=== PATIENT | male | born 1960 | race Caucasian/White ===

== ENCOUNTER 2020-02-27 08:34 | Inpatient (IN) ==
[2020-02-27] MEDS ORDERED: ASPIRIN CHEW 324 MG PO STA (08:52)
[2020-02-27] MEDS ORDERED: NITROGLYCERIN SL 0.4 MG/TAB TAB SL STA (08:52)
--- NOTE | 2020-02-27 08:57 | Emergency Department Note ---
History of Present Illness General Chief complaint: Cardiac Assessment Stated complaint: ANGINA SYMPTOMS SENT BY DR Bowens Seen by Provider: 02/27/20 08:44 Source: patient, RN notes reviewed and old records reviewed Mode of arrival: ambulatory Limitations: no limitations History of Present Illness Provider complaint: chest pain Onset (ago): week(s) 2 Location: chest Radiation: back Severity: moderate Pain Consistency: + intermittent and + now resolved Maximum Pain Intensity: 5 Current Pain Intensity: 5 Quality: + aching Relieved By: + immobilization Exacerbated By: + movement Associated symptoms: + shortness of breath; no diaphoresis, no fever/chills and no nausea/vomiting Treatments prior to arrival: none This is a 59-year-old male who had a negative COVID test on Tuesday who presents the emergency department complaining of chest pressure and shortness of breath that has been ongoing for the past 2 weeks. The patient was recently involved in a move and noted he has been having chest pain anytime he moved anything or walked. He reports resting makes the chest pain go away. He describes the chest pain as sharp and radiating into his back. He reports immobilization makes the pain better however movement makes it worse. The patient denies smoking however he does take medication for his blood pressure. He reports his father had angina in his 50s. The patient was sent in by his primary care physician. Home Medications Home Medications Medication Instructions Recorded Confirmed Type atenolol 25 mg PO BID 02/27/20 02/27/20 History escitalopram oxalate 20 mg PO DAILY 02/27/20 02/27/20 History losartan 100 mg PO DAILY 02/27/20 02/27/20 History Allergies Allergy/AdvReac Type Severity Reaction Status Date / Time No Known Allergies Allergy Unverified 02/27/20 09:46 Past Med/Surg History Medical History Depression with anxiety HTN (hypertension) Iron deficiency anemia Surgical History H/O cataract extraction History of colonoscopy 2012 History of elbow surgery Secondary to fracture History of esophagogastroduodenoscopy (EGD) 2012, negative for ulcer and celiac and H. pylori History of lumbar surgery L4-5 discectomy Family History Father Coronary heart disease, Onset Age: 50 Grandfather (Paternal) Coronary heart disease, Onset Age: 50 Denies family history of Colon cancer Blood dyscrasia Social History (Updated 02/27/20 @ 12:36 by Skylar Friedman PA-C) Smoking Status: Never smoker Hx Alcohol Use: No Hx Substance Use: No Preferred Language: Hungarian Communication Ability: Effective School Counsellor Required: No Beliefs That Will Affect Care: None Current Living Situation: Spouse current occupational status: employed Other Information That Helps Us Care for You: No Feels Safe at Home: Yes Safety Concerns: Feels Safe At This Time Review of Systems A total of 10 systems reviewed and were otherwise negative Physical Exam Vital Signs Vital Signs - 24 hr 02/27/20 10:01 Pulse Rate [Left Finger] 74 Respiratory Rate 20 Respiratory Effort / Characteristics Non-Labored Respiratory Depth Normal Blood Pressure [Left Arm] 144/70 H Blood Pressure Mean [Left Arm] 94 Pulse Oximetry 99 Oxygen Delivery Method Room Air VITAL SIGNS - Vital signs and nursing notes were reviewed. GENERAL - 59-year-old male appearing stated age who is in no acute distress. Communicates well with provider and answers questions appropriately. SKIN - Without rashes. HEAD - NC/AT. EYES - PERRL with EOMI bilaterally. Sclera anicteric. Palpebral conjunctiva pink and moist with no injection noted. EARS - No deformities of external structures noted on gross examination bilaterally. No pain elicited with palpation of the tragus bilaterally. External auditory canals without discharge or otorrhea. Tympanic membranes pearly diggs without retraction or bulging. No fluid or purulent material visualized behind the TM. Handle of malleus, umbo, cone of light, pars tensa/flaccid all easily visualized. NOSE - Midline and without cyanosis. No epistaxis or purulent drainage noted. S eptum midline without deviation or septal hematoma noted. MOUTH/OROPHARYNX - Without perioral cyanosis. Buccal mucosa pink and moist and without leukoplakia. Tongue midline with equal elevation of palate bilaterally. No tonsillar hypertrophy, erythema, or exudates noted. dentition noted. NECK - Neck with FROM. Supple to palpation. lymphadenopathy noted. No nuchal rigidity. LUNGS - Chest wall symmetric without accessory muscle use, intercostals retractions, or central cyanosis. Normal vesicular breath sounds CTA B/L. No wheezes, rales, or rhonchi appreciated. CARDIAC - RRR with S1/S2. No murmur, rubs, or gallops appreciated. ABDOMEN - Abdominal contour without pulsations or visible masses. BS normoactive all four quadrants. No tenderness, palpable masses, hepatosplenomegaly, or ascites noted. Rectal: Brown stool, heme negative EXTREMITIES - No clubbing or peripheral cyanosis. No pretibial edema present. +3/5 radial, posterior tibial, and dorsalis pedis pulses palpated throughout. +5/5 strength noted in UE/LE bilaterally. NEUROLOGIC - Cranial nerves II through XII grossly intact. Sensory intact to light touch throughout. Patellar reflexes +2/4. PSYCH - A&Ox3 and cooperates fully with examiner. Pt is very pleasant and interacts well with examiner. Course Administered Medications Atenolol (Tenormin) 25 mg PO BID [facility] Stop: 03/28/20 20:59 Last Admin: 02/28/20 07:47 Dose: Not Given Documented by: [id number] Admin: 02/27/20 20:08 Dose: 25 mg Documented by: [id number] Escitalopram Oxalate (Lexapro Tab) 20 mg PO DAILY ANDREW Stop: 03/29/20 08:59 Last Admin: 02/28/20 07:47 Dose: Not Given Documented by: [id number] Ioversol (Optiray 320 100ml) 94 ml IV ONCE PRN PRN Reason: Interaction Checking Stop: 03/02/20 12:47 Last Admin: 02/27/20 12:48 Dose: 94 ml Documented by: [id number] Losartan Potassium (Cozaar) 100 mg PO DAILY ANDREW Stop: 03/29/20 08:59 Last Admin: 02/28/20 07:47 Dose: Not Given Documented by: [id number] Discontinued Medications Aspirin (Aspirin) 324 mg PO NOW STA Stop: 02/27/20 08:53 Last Admin: 02/27/20 09:13 Dose: 324 mg Documented by: [id number] Bisacodyl (Dulcolax) 20 mg PO NOW ONE Stop: 02/27/20 17:01 Last Admin: 02/27/20 17:36 Dose: 20 mg Documented by: [id number] Nitroglycerin (Nitrostat) 0.4 mg SL NOW STA Stop: 02/27/20 08:53 Last Admin: 02/27/20 09:13 Dose: 0.4 mg Documented by: [id number] Polyethylene Glycol (Miralax Powder Packet) 119 gm PO ONE ONE Stop: 02/27/20 17:01 Last Admin: 02/27/20 17:42 Dose: 119 gm Documented by: [id number] Polyethylene Glycol (Miralax Powder Packet) 119 gm PO ONE ONE Stop: 02/27/20 21:01 Last Admin: 02/27/20 21:02 Dose: 119 gm Documented by: [id number] Critical Care Time I have personally spent greater than 30 minutes of critical care time in the dir ect management of this patient. This includes bedside care, interpretation of diagnostic studies, and testing, discussion with consultants, patient, and family members, and other required patient management activities. This 30 minutes is in excess of all separately billable procedures. Medical Decision Making Differential Diagnosis Cardiac ischemia, aortic dissection, pulmonary embolism, pneumothorax, pneumonia, pericarditis, myocarditis, esophageal rupture, GERD, cholecystitis, pancreatitis, musculoskeletal, as well as other pathologies. Medical Records Attestation: I reviewed the patient's medical records. Home Medications Current Medication List: was personally reviewed by me Laboratory Data Attestation: I reviewed the patient's lab results. Result diagrams: 02/28/20 07:21 02/28/20 07:21 Lab Results 02/27/20 02/27/20 02/27/20 Range/Units 09:02 09:02 09:02 WBC 5.86 (4.8-10.8) K/uL RBC 3.15 L (4.7-6.1) M/uL Hgb 6.7 L* (14.0-18.0) g/dL Hct 22.5 L (42-52) % MCV 71.4 L (80-100) fL MCH 21.3 L (25-34) pg MCHC 29.8 L (32-36) g/dL RDW Std Deviation 39.7 (36.4-46.3) fL RDW Coeff of April 15.2 H (11.5-14.5) % Plt Count 323 (130-400) K/uL MPV 9.4 (7.4-10.4) fL Immature Gran % (Auto) 0.3 % Neut % (Auto) 64.1 % Lymph % (Auto) 18.8 % [place] % (Auto) 9.7 % Eos % (Auto) 6.1 % Baso % (Auto) 1.0 % Reticulocyte % (Auto) (0.5-2.0) % Neut # (Auto) 3.75 (1.4-6.5) K/uL Lymph # (Auto) 1.10 L (1.2-3.4) K/uL [place] # (Auto) 0.57 (0.11-0.59) K/uL Eos # (Auto) 0.36 (0-0.5) K/uL Baso # (Auto) 0.06 (0-0.2) K/uL Reticulocyte # (0.02-0.10) 10^6/uL Immature Gran # (Auto) 0.02 (0.00-0.02) K/uL Giant Platelets 1+ Hypochromasia Present Microcytosis Present Peripher Smr Path Cons PT 10.8 (9.0-12.0) Seconds INR 1.0 (0.9-1.1) APTT 24.4 (21.0-31.0) Seconds PTT Ratio 0.9 D-Dimer 340 (0-500) ug/L FEU Sodium 137 (136-145) mmol/L Potassium 4.3 (3.5-5.1) mmol/L Chloride 110 H (98-107) mmol/L Carbon Dioxide 22 (21-32) mmol/L Anion Gap 5.0 (3-11) BUN 18 (7-18) mg/dl Creatinine 0.86 (0.6-1.4) mg/dl Est Cr Clr Drug Dosing 120.2 ml/min Est GFR ( Amer) 111.6 Est GFR (Non-Af Amer) 96.3 BUN/Creatinine Ratio 20.6 H (10-20) Glucose 107 H (70-99) mg/dl Calcium 8.9 (8.5-10.1) mg/dl Iron (35-175) mcg/dl Transferrin (200-360) mg/dl Transferrin % Sat (20-50) % Ferritin (8-388) ng/ml Total Bilirubin 0.3 (0.2-1) mg/dl AST 14 L (15-37) U/L ALT 21 (12-78) U/L Alkaline Phosphatase 69 (45-117) U/L Total Creatine Kinase 138 (39-308) U/L CK-MB (CK-2) 3.3 (0.5-3.6) ng/ml CK/CKMB % Calc 2.4 (0-3.0) Troponin I < 0.015 (0-0.045) ng/ml Total Protein 6.9 (6.4-8.2) gm/dl Albumin 3.3 L (3.4-5.0) gm/dl Globulin 3.6 (2.5-4.0) gm/dl Albumin/Globulin Ratio 0.9 (0.9-2) Lipase 160 (73-393) U/L Lyme Disease IgG Ab (Negative) Lyme Disease IgM Ab (Negative) Blood Type Blood Type Recheck Antibody Screen Crossmatch 02/27/20 02/27/20 02/27/20 Range/Units 09:02 09:50 09:50 WBC (4.8-10.8) K/uL RBC (4.7-6.1) M/uL Hgb (14.0-18.0) g/dL Hct (42-52) % MCV (80-100) fL MCH (25-34) pg MCHC (32-36) g/dL RDW Std Deviation (36.4-46.3) fL RDW Coeff of April (11.5-14.5) % Plt Count (130-400) K/uL MPV (7.4-10.4) fL Immature Gran % (Auto) % Neut % (Auto) % Lymph % (Auto) % [place] % (Auto) % Eos % (Auto) % Baso % (Auto) % Reticulocyte % (Auto) 1.8 (0.5-2.0) % Neut # (Auto) (1.4-6.5) K/uL Lymph # (Auto) (1.2-3.4) K/uL [place] # (Auto) (0.11-0.59) K/uL Eos # (Auto) (0-0.5) K/uL Baso # (Auto) (0-0.2) K/uL Reticulocyte # 0.05 (0.02-0.10) 10^6/uL Immature Gran # (Auto) (0.00-0.02) K/uL Giant Platelets Hypochromasia Microcytosis Peripher Smr Path Cons PT (9.0-12.0) Seconds INR (0.9-1.1) APTT (21.0-31.0) Seconds PTT Ratio D-Dimer (0-500) ug/L FEU Sodium (136-145) mmol/L Potassium (3.5-5.1) mmol/L Chloride (98-107) mmol/L Carbon Dioxide (21-32) mmol/L Anion Gap (3-11) BUN (7-18) mg/dl Creatinine (0.6-1.4) mg/dl Est Cr Clr Drug Dosing ml/min Est GFR ( Amer) Est GFR (Non-Af Amer) BUN/Creatinine Ratio (10-20) Glucose (70-99) mg/dl Calcium (8.5-10.1) mg/dl Iron (35-175) mcg/dl Transferrin (200-360) mg/dl Transferrin % Sat (20-50) % Ferritin (8-388) ng/ml Total Bilirubin (0.2-1) mg/dl AST (15-37) U/L ALT (12-78) U/L Alkaline Phosphatase (45-117) U/L Total Creatine Kinase (39-308) U/L CK-MB (CK-2) (0.5-3.6) ng/ml CK/CKMB % Calc (0-3.0) Troponin I (0-0.045) ng/ml Total Protein (6.4-8.2) gm/dl Albumin (3.4-5.0) gm/dl Globulin (2.5-4.0) gm/dl Albumin/Globulin Ratio (0.9-2) Lipase (73-393) U/L Lyme Disease IgG Ab Negative (Negative) Lyme Disease IgM Ab Negative (Negative) Blood Type O Positive Blood Type Recheck Antibody Screen NEGATIVE Crossmatch See Detail 02/27/20 02/27/20 Range/Units 09:50 09:56 WBC (4.8-10.8) K/uL RBC (4.7-6.1) M/uL Hgb (14.0-18.0) g/dL Hct (42-52) % MCV (80-100) fL MCH (25-34) pg MCHC (32-36) g/dL RDW Std Deviation (36.4-46.3) fL RDW Coeff of April (11.5-14.5) % Plt Count (130-400) K/uL MPV (7.4-10.4) fL Immature Gran % (Auto) % Neut % (Auto) % Lymph % (Auto) % [place] % (Auto) % Eos % (Auto) % Baso % (Auto) % Reticulocyte % (Auto) (0.5-2.0) % Neut # (Auto) (1.4-6.5) K/uL Lymph # (Auto) (1.2-3.4) K/uL [place] # (Auto) (0.11-0.59) K/uL Eos # (Auto) (0-0.5) K/uL Baso # (Auto) (0-0.2) K/uL Reticulocyte # (0.02-0.10) 10^6/uL Immature Gran # (Auto) (0.00-0.02) K/uL Giant Platelets Hypochromasia Microcytosis Peripher Smr Path Cons PT (9.0-12.0) Seconds INR (0.9-1.1) APTT (21.0-31.0) Seconds PTT Ratio D-Dimer (0-500) ug/L FEU Sodium (136-145) mmol/L Potassium (3.5-5.1) mmol/L Chloride (98-107) mmol/L Carbon Dioxide (21-32) mmol/L Anion Gap (3-11) BUN (7-18) mg/dl Creatinine (0.6-1.4) mg/dl Est Cr Clr Drug Dosing ml/min Est GFR ( Amer) Est GFR (Non-Af Amer) BUN/Creatinine Ratio (10-20) Glucose (70-99) mg/dl Calcium (8.5-10.1) mg/dl Iron 10 L (35-175) mcg/dl Transferrin 340 (200-360) mg/dl Transferrin % Sat 2 L (20-50) % Ferritin 1.2 L (8-388) ng/ml Total Bilirubin (0.2-1) mg/dl AST (15-37) U/L ALT (12-78) U/L Alkaline Phosphatase (45-117) U/L Total Creatine Kinase (39-308) U/L CK-MB (CK-2) (0.5-3.6) ng/ml CK/CKMB % Calc (0-3.0) Troponin I (0-0.045) ng/ml Total Protein (6.4-8.2) gm/dl Albumin (3.4-5.0) gm/dl Globulin (2.5-4.0) gm/dl Albumin/Globulin Ratio (0.9-2) Lipase (73-393) U/L Lyme Disease IgG Ab (Negative) Lyme Disease IgM Ab (Negative) Blood Type Blood Type Recheck O Positive Antibody Screen Crossmatch Imaging Data Radiologist's Impression: [place], [place] [phone] XRay Report Patient: YULIA LIMAdmit Date: 02/27/20 MR#: [id number]: [id number] Acct ID:[id number]: [facility] Zip[facility] [place] [address] Age: 59Location: ED Sex: M Room/Bed: Att Phy:Diagnosis: ANGINA SYMPTOMS SENT BY DR Kiran Phy: Jose Alfredo Meyers MDService Date: 02/27/20 Fam Phy:Interpreting Phy: Frank Castaneda MD Admit Phy: Ordering Phy: Sarwat Saha MD cc: ~ XR chest 1V portable HISTORY: Atypical Chest Pain COMPARISON: None. FINDINGS: Cardiac silhouette is mildly enlarged. No pleural effusions. No pneumothorax. The lungs are clear. The trachea is midline and patent. No acute rib fractures. IMPRESSION: Mild cardiomegaly. ACT 112: Negative or not required by law. Electronically signed by: Frank Castaneda M.D. 02/27/2020 9:10 AM Dictated: 02/27/20907 Transcribed: 02/27/20 09 ECG Data Attestation: I personally reviewed and interpreted this ECG as follows: Indication: + chest pain Rate (beats per minute): 75 Rhythm: + normal sinus ECG Intervals/blocks: + Normal QT-c (415) ECG [place]: + Normal ECG ST segments: no ST depression and no ST elevation Comparison ECG Date: from (01/17/2014) Change: no significant change MDM Narrative This is a 59-year-old male who presents emergency department complaining of chest pain or shortness of breath anytime he ambulates. Patient reports a history of dark tarry stool this week however he is heme-negative on my physical examination. Hemoglobin was found to be 6.7 his troponin is negative. His d- dimer is also not elevated and he has a negative normal EKG. He was typed and crossed for 2 units of packed red blood cells. The patient did sign can the blood consent and is placed on the chart. I did discuss the case with the hospital service who did agree to admit the patient. Patient was seen and evaluated as above in room A3. Review was performed of nursing notes and vital signs. I did review pertinent previous visits and patient history. After obtaining a thorough history and physical examination the above work up was performed. An order was placed for continuous cardiac monitoring. The monitor shows a rate of 74 with Normal Sinus rhythm. The patient was evaluated during the global COVID-19 pandemic, and that diagnosis was suspected/considered upon their initial presentation. Their evaluation, treatment and testing was consistent with current guidelines for patients who present with complaints or symptoms that may be related to COVID- 19. Impression & Plan Chest pain, Symptomatic anemia Discharge Plan Visit Data *Final* Discharge Date/Time: 02/27/20 11:03 Chief Complaint: Cardiac Assessment Stated Complaint: ANGINA SYMPTOMS SENT BY ED Provider: Sarwat Saha Discharge Problem: Chest pain, Symptomatic anemia Patient Disposition: Admitted As Inpatient Discharge Instructions Interventions: ED Discharge Assessment Last Done: 02/27/20 11:03 Discharge Problem: Chest pain Qualifiers: Chest pain type: unspecified Qualified Code(s): R07.9 - Chest pain, unspecified
--- NOTE | 2020-02-27 09:11 | XRay Report ---
XR chest 1V portable HISTORY: Atypical Chest Pain COMPARISON: None. FINDINGS: Cardiac silhouette is mildly enlarged. No pleural effusions. No pneumothorax. The lungs are clear. The trachea is midline and patent. No acute rib fractures. IMPRESSION: Mild cardiomegaly. ACT 112: Negative or not required by law. Electronically signed by: Frank Castaneda M.D. 02/27/2020 9:10 AM
[2020-02-27 09:25] LABS: Hematocrit (blood only) 22.5 % (42-52); Hemoglobin 6.7 g/dL (14.0-18.0); Mean Corpuscular Hemoglobin 21.3 pg (25-34); Mean Corpuscular Hgb Conc 29.8 g/dL (32-36); Mean Corpuscular Volume 71.4 fL (80-100); Mean Platelet Volume 9.4 fL (7.4-10.4); Platelet Count 323 K/uL (130-400); RDW Coefficient of Variation 15.2 % (11.5-14.5); RDW Standard Deviation 39.7 fL (36.4-46.3); Red Blood Count 3.15 M/uL (4.7-6.1); White Blood Count 5.86 K/uL (4.8-10.8)
[2020-02-27] MEDS ORDERED: SODIUM CHLORIDE 0.9% 250 ML IV PRN ×3 (09:26→12:52)
[2020-02-27 09:33] LABS: Alanine Aminotransferase 21 U/L (12-78); Albumin Level 3.3 gm/dl (3.4-5.0); Aspartate Aminotransferase 14 U/L (15-37); BUN Creatinine Ratio 20.6 (10-20); Blood Urea Nitrogen 18 mg/dl (7-18); Calcium 8.9 mg/dl (8.5-10.1); Carbon Dioxide 22 mmol/L (21-32); Chloride 110 mmol/L (98-107); Creatinine Clr Calc Pharmacy 120.2 ml/min; Est GFR (African American) 111.6; Est GFR (Non-African American) 96.3; Glucose 107 mg/dl (70-99); Lipase 160 U/L (73-393); Potassium 4.3 mmol/L (3.5-5.1); Sodium 137 mmol/L (136-145)
[2020-02-27 09:36] LABS: Basophils # (auto) 0.06 K/uL (0-0.2); Eosinophils # (auto) 0.36 K/uL (0-0.5); Eosinophils % (auto) 6.1 %; Giant Platelets 1+; Hypochromasia Present; Immature Granulocytes # (auto) 0.02 K/uL (0.00-0.02); Immature Granulocytes % (auto) 0.3 %; Lymphocytes % (auto) 18.8 %; Microcytosis Present; Monocytes # (auto) 0.57 K/uL (0.11-0.59); Monocytes % (auto) 9.7 %; Neutrophils # (auto) 3.75 K/uL (1.4-6.5); Neutrophils % (auto) 64.1 %
[2020-02-27 09:38] LABS: Albumin Globulin Ratio 0.9 (0.9-2); Alkaline Phosphatase 69 U/L (45-117); Bilirubin,Total 0.3 mg/dl (0.2-1); Creatine Kinase 138 U/L (39-308); Creatine Kinase MB 3.3 ng/ml (0.5-3.6); Globulin 3.6 gm/dl (2.5-4.0); Total Protein 6.9 gm/dl (6.4-8.2); Troponin I < 0.015 ng/ml (0-0.045)
[2020-02-27 09:41] LABS: D Dimer 340 ug/L FEU (0-500); Partial Thromboplastin Ratio 0.9; Partial Thromboplastin Time 24.4 Seconds (21.0-31.0); Prothrombin Time 10.8 Seconds (9.0-12.0)
[2020-02-27] MEDS ORDERED: ACETAMINOPHEN 325 MG TAB PO PRN (10:02)
[2020-02-27] MEDS ORDERED: ONDANSETRON INJ 2 MG/ML 2 ML VIAL IV PRN (10:02)
[2020-02-27 10:06] LABS: Reticulocyte % 1.8 % (0.5-2.0); Reticulocytes # 0.05 10^6/uL (0.02-0.10)
[2020-02-27 10:14] LABS: Lyme Ab IgG w/WB Rflx Negative (Negative); Lyme Ab IgM w/WB Rflx Negative (Negative)
[2020-02-27 10:31] LABS: Ferritin 1.2 ng/ml (8-388)
--- NOTE | 2020-02-27 11:22 | Gastrointestinal Consultation ---
Date of Consultation February 27, 2020 Assessment & Plan (1) Iron deficiency anemia: Pt is a 59 y/o male admitted with symptomatic iron deficiency anemia w/o elo symptoms of GI/ bleeding. Previous evaluation for iron deficiency anemia in 2012 via EGD/colonoscopy evals were unrevealing. He never went through with VCE eval or Heme/Onc referral - Agree w blood transfusions, monitor blood ct closely - Replet iron - CL diet today, NPO after midnight. Will plan for EGD/Colonoscopy eval tomorrow 02/[address] Suarez - Recommend Heme/Onc eval Supervising Physician Co-Signing Physician Notes I performed a history and physical examination of the patient today, including specifically on physical exam - soft abdomen. I have discussed the patient's management with the advanced practitioner. Please refer to the nurse practitioner's note for the documented findings and plan of care. EGD/colonoscopy tomorrow History of Present Illness Reason for Consultation: Symptomatic anemia Requesting Physician: Dr. Pepper Randall Attending Physician: Dr. Damion Suarez History of Present Illness Pt is a 59 y/o male w hx of HTN, anxiety who presented with fatigue, HAUSER x 2 weeks. He mentioned having chest pressure and also upper back pressure sensation when he does something strenous. + light headedness but denies any syncope or falls. On evaluation he was noted to be severely anemic. H/H 01/27. Hgb in ouptpt labs in 2019 was around 13. Coag studies, BUN/Cr normal. Iron levels low. He has hx of iron deficiency anemia and underwent EGD/Colonsocopy evals in 2012 for this. No signs of GI blood loss or malignancy noted at that time. Celiac testing normal also. He was recommended to undergo video capsule endoscopy and referred to Heme/Onc however never followed through w appt. He mentioned having n/v x 1 within last 2 weeks but denies any coffee ground emesis or hematemesis. Stools solid, dark at times but denies any black tarry appearance or BRBPR. Denies open bleeding wounds, hematuria. He is on iron supplements once daily now. He denies NSAIDs, ETOH, tobacco or marijuana products. Family hx pertinent for heart disease and diabetes but denies hematological disorders or colorectal ca. Allergies Allergy/AdvReac Type Severity Reaction Status Date / Time No Known Allergies Allergy Unverified 02/27/20 09:46 Home Medications Home Medications Medication Instructions Recorded Confirmed Type atenolol 25 mg PO BID 02/27/20 02/27/20 History escitalopram oxalate 20 mg PO DAILY 02/27/20 02/27/20 History losartan 100 mg PO DAILY 02/27/20 02/27/20 History Patient History Medical History (Updated 02/27/20 @ 12:38 by Skylar Friedman PA-C) Depression with anxiety HTN (hypertension) Iron deficiency anemia Surgical History (Updated 02/27/20 @ 12:34 by Skylar Friedman PA-C) H/O cataract extraction History of colonoscopy 2012 History of elbow surgery Secondary to fracture History of esophagogastroduodenoscopy (EGD) 2012, negative for ulcer and celiac and H. pylori History of lumbar surgery L4-5 discectomy Family History Father Coronary heart disease, Onset Age: 50 Grandfather (Paternal) Coronary heart disease, Onset Age: 50 Denies family history of Colon cancer Blood dyscrasia Social History (Updated 02/27/20 @ 12:36 by Skylar Friedman PA-C) Smoking Status: Never smoker Hx Alcohol Use: No Hx Substance Use: No Preferred Language: Liberian Communication Ability: Effective Tin Dipper Required: No Beliefs That Will Affect Care: None Current Living Situation: Spouse current occupational status: employed Other Information That Helps Us Care for You: No Feels Safe at Home: Yes Safety Concerns: Feels Safe At This Time Review of Systems Review of Systems: All systems reviewed & are unremarkable except as noted in HPI & below Physical Exam Constitutional: WD/WN, vitals as above well groomed, cooperative and comfortable Eyes: PERRL, conjunctivae normal, anicteric sclerae ENMT: external ear and nose normal, oropharynx normal Respiratory: normal respiratory effort, lungs clear to auscultation Cardiovascular: RRR, no murmur, no edema Gastrointestinal (Abdomen): normal bowel sounds, soft, nontender, no hepatosplenomegaly Skin: no rashes, warm and dry no jaundice Psychiatric: A+Ox3, euthymic affect Lymphatic: no lymphedema Results & Data ([facility]) Vital Signs (Past 12 Hours) Vital Signs Temp Pulse Pulse Resp BP BP Pulse Ox 02/27/20 10:57 76 22 173/55 H 100 02/27/20 10:01 74 20 144/70 H 99 02/27/20 09:23 72 20 127/76 02/27/20 09:16 80 22 161/76 H 100 02/27/20 09:12 78 16 153/75 H 100 02/27/20 09:10 78 18 100 02/27/20 08:39 36.8 C 75 20 169/74 H 97
--- NOTE | 2020-02-27 12:39 | History & Physical Report ---
Date of Service February 27, 2020 Assessment & Plan (1) Iron deficiency anemia: (2) Symptomatic anemia: This is a 59-year-old male who has significant past medical history of HTN, iron deficiency anemia, depression with anxiety who presents to ED secondary to chest pain and shortness of breath x2 weeks. Upon evaluation in the ED he was found to be significantly anemic with an H&H of 6.7 and 22.5, hypochromic and microcytic. Platelet count was WNL. He did have negative COVID test from depict on 02/24. Further lab abnormalities included significant iron deficiency with ferritin 1.2, T saturation 2%, iron 10 and transferrin 340. His initial troponin was negative. Lyme screen was negative, Anaplasma pending. Chest x-ray with mild cardiomegaly but no acute cardiopulmonary disease. EKG revealed normal sinus rhythm at [address] or T wave changes. Pt with severe iron deficiency anemia, has been iron deficient since 2012 - at that time had EGD/colon w/u and was negative including hpylori and celiac disease. Did not f/u as outpt with hematology or capsule endoscopy admit to tele transfuse 2 units PRBC peripheral smear pending GI consulted appreciate recs Clear liquid diet, NPO after midnight Pt will need IV venofer when bld ct repleted repeat h/h this afternoon (3) HTN (hypertension): continue losartan and atenolol with parameters pt actually hypertensive despite profound anemia (4) Depression with anxiety: continue lexapro mood stable (5) DVT prophylaxis: none in setting of acute anemia Disposition: admit to Tele Follow up: PCP Dr. Meyers upon discharge along with Heme/onc Pt was seen and examined in collaboration with Dr. Randall, please see addendum Admission and Anticipated Discharge Date Admission Date: February 27, 2020 History of Present Illness Chief Complaint: Chest pain and shortness of breath x2 weeks. Primary Care Provider: Jose Alfredo Meyers MD This is a 59-year-old male who has significant past medical history of HTN, iron deficiency anemia, depression with anxiety who presents to ED secondary to chest pain and shortness of breath x2 weeks. is at bedside. He admits over the last 2 weeks developing chest pain and pressure like he is being, "hit by a sandbag," even with minimal exertion including lifting something. He also admits to getting significantly short of breath with simple daily activities. He is concerned due to a family history of CAD in his father and grandfather in their 50s. He has never experienced this in the past. He further admits to being overall fatigued, increased arthralgias, general malaise and occasional nausea with emesis. He denies any recent fever but admits to chills and denies sweats. He does admit to feeling lightheaded like he could pass out but denies any elo syncope or dizzy. He denies any headache, change in vision, change in hearing, palpitations, cough, hemoptysis, hematemesis, abdominal pain, diarrhea, melena, medic easier, hematuria, dysuria increased urgency or frequency with urination. He does have a known past medical history of iron deficiency anemia in which she was prescribed oral iron. He admits to not being compliant with it due to it causing nausea and poor tolerance. Of significance he did have a work-up in 2012 for iron deficiency anemia and underwent EGD and colonoscopy whi ch was negative for celiac's disease or source of bleeding. It was recommended at that time to do a video endoscopy capsule as well as hematology evaluation. He denies any prior history of blood dyscrasias or family history of this. He admits to being a meat, potatoes and vegetables elvin and feels he does eat adequate iron intake. He did take his morning medications. He denies significant NSAID use and denies alcohol use. Denies family history of blood dyscrasia or colorectal cancer. Upon evaluation in the ED he was found to be significantly anemic with an H&H of 6.7 and 22.5, hypochromic and microcytic. Platelet count was WNL. He did have negative COVID test from depict on 02/24. Further lab abnormalities included significant iron deficiency with ferritin 1.2, T saturation 2%, iron 10 and transferrin 340. His initial troponin was negative. Lyme screen was negative, Anaplasma pending. Chest x-ray with mild cardiomegaly but no acute cardiopulmonary disease. EKG revealed normal sinus rhythm at [address] or T wave changes. Allergies Allergy/AdvReac Type Severity Reaction Status Date / Time No Known Allergies Allergy Unverified 02/27/20 09:46 Home Medications Home Medications Medication Instructions Recorded Confirmed Type atenolol 25 mg PO BID 02/27/20 02/27/20 History escitalopram oxalate 20 mg PO DAILY 02/27/20 02/27/20 History losartan 100 mg PO DAILY 02/27/20 02/27/20 History Past Med/Surg History Medical History (Updated 02/27/20 @ 12:38 by Skylar Friedman PA-C) Depression with anxiety HTN (hypertension) Iron deficiency anemia Surgical History (Updated 02/27/20 @ 12:34 by Skylar Friedman PA-C) H/O cataract extraction History of colonoscopy 2012 History of elbow surgery Secondary to fracture History of esophagogastroduodenoscopy (EGD) 2012, negative for ulcer and celiac and H. pylori History of lumbar surgery L4-5 discectomy Family History Father Coronary heart disease, Onset Age: 50 Grandfather (Paternal) Coronary heart disease, Onset Age: 50 Denies family history of Colon cancer Blood dyscrasia Social History (Updated 02/27/20 @ 12:36 by Skylar Friedman PA-C) Smoking Status: Never smoker Hx Alcohol Use: No Hx Substance Use: No Preferred Language: Serbian Communication Ability: Effective Fire Coordinator Required: No Beliefs That Will Affect Care: None Current Living Situation: Spouse current occupational status: employed Other Information That Helps Us Care for You: No Feels Safe at Home: Yes Safety Concerns: Feels Safe At This Time Review of Systems Review of Systems: All systems reviewed & are unremarkable except as noted in HPI & below Physical Exam Physical Exam: Constitutional: WD/WN, pale lower, vitals as above, NAD, sitting up in bed, pleasant, conversing easily Head: Normocephalic, Atraumatic Eyes: PERRL, conjunctivae normal, anicteric sclerae ENMT: external ear and nose normal, oropharynx normal Neck: trachea midline, no thyromegaly normal visual inspection Respiratory: normal respiratory effort, lungs clear to auscultation, no wheeze, rales, rhonchi. Normal insp/exp effort, no accessory muscle use Cardiovascular: RRR, no murmur, no edema Vessels: no JVD or carotid bruit Chest: normal inspection of chest Abdomen: normal bowel sounds, soft, nontender, no hepatosplenomegaly Musculoskeletal: no cyanosis or clubbing, extremities motor strength 5/5 Skin: no rashes, warm and dry normal turgor Neurologic: PERRL, EOMI, accommodation nl, no face palsy, no dysarthria CN's II-XI intact bilaterally and moves all extremities Psychiatric: A+Ox3, euthymic affect Lymphatic: no cervical or axillary lymphadenopathy : deferred Results & Data Results & Data ([facility]) Vital Signs (Past 12 Hours) Vital Signs Temp Pulse Pulse Resp BP BP Pulse Ox 02/27/20 11:38 75 02/27/20 11:31 36.8 C 69 18 148/71 H 100 02/27/20 10:57 76 22 173/55 H 100 02/27/20 10:01 74 20 144/70 H 99 02/27/20 09:23 72 20 127/76 02/27/20 09:16 80 22 161/76 H 100 02/27/20 09:12 78 16 153/75 H 100 02/27/20 09:10 78 18 100 02/27/20 08:39 36.8 C 75 20 169/74 H 97 Laboratory Results Short CBC 02/27/20 Range/Units 09:02 WBC 5.86 (4.8-10.8) K/uL Hgb 6.7 L* (14.0-18.0) g/dL Hct 22.5 L (42-52) % Plt Count 323 (130-400) K/uL BMP 02/27/20 09:02 Sodium 137 Potassium 4.3 Chloride 110 H Carbon Dioxide 22 BUN 18 Creatinine 0.86 Glucose 107 H Calcium 8.9 Cardiac Enzymes 02/27/20 Range/Units 09:02 Total Creatine Kinase 138 (39-308) U/L CK-MB (CK-2) 3.3 (0.5-3.6) ng/ml Troponin I < 0.015 (0-0.045) ng/ml Liver Function 02/27/20 Range/Units 09:02 Total Bilirubin 0.3 (0.2-1) mg/dl AST 14 L (15-37) U/L ALT 21 (12-78) U/L Alkaline Phosphatase 69 (45-117) U/L Albumin 3.3 L (3.4-5.0) gm/dl Diagnostic Findings CXR: IMPRESSION: Mild cardiomegaly Medications Administered Discontinued Medications Aspirin (Aspirin) 324 mg PO NOW STA Stop: 02/27/20 08:53 Last Admin: 02/27/20 09:13 Dose: 324 mg Documented by: [id number] Nitroglycerin (Nitrostat) 0.4 mg SL NOW STA Stop: 02/27/20 08:53 Last Admin: 02/27/20 09:13 Dose: 0.4 mg Documented by: [id number] ECG Rate (beats per minute): 75 Rhythm: normal sinus Code Status & VTE Plan Code Status Full Code VTE Prophylaxis Plan VTE Prophylaxis will be ordered: Yes Supervising Physician Co-Signing Physician Notes Attending addendum: Patient seen and examined, record reviewed, care coordinated with Skylar Mckee PA-C 59-year-old male with known past medical history of iron deficiency anemia: Chronic Presented with dyspnea on exertion shortness of breath for 2 weeks In the ER found to be severely anemic with hemoglobin of 6.7 hypochromic microcytic MCV 77 Patient denies of any dark tarry stool Labs shows significant iron deficiency anemia with ferritin 1.2/iron 10 Ordered for 2 units of PRBC to be transfused GI evaluation requested Ordered for clear liquid diet n.p.o. past midnight for EGD colonoscopy in a.m. Chest pain/shortness of breath: Possible secondary to symptomatic anemia Blood transfusion as outlined above Resting echo, CT chest with contrast Physical exam: General: No sign of distress, comfortable Respiratory normal, no wheeze or rales, Heart rate regular rate and rhythm no edema Abdomen: Soft nontender active bowel sound Neuro: No focal neurological deficit Please refer to further documentation by Skylar Mckee PA-C for discussion of other chronic issues Pepper Randall MD
--- NOTE | 2020-02-27 12:43 | Electrocardiogram Report ---
Test Reason : Blood Pressure : / mmHG Vent. Rate : 075 BPM Atrial Rate : 075 BPM P-R Int : 152 ms QRS Dur : 094 ms QT Int : 372 ms P-R-T Axes : 074 026 017 degrees QTc Int : 415 ms Normal sinus rhythm Normal ECG When compared with ECG of 17-JAN-2014 23:13, T wave inversion no longer evident in Anterior leads Confirmed by Henry Castañeda ([id number]) on 02/27/2020 12:42:54 PM Referred By: Jose Alfredo Meyers Confirmed By:Henry Castañeda
[2020-02-27] MEDS ORDERED: IOVERSOL 100ml IV PRN (12:48)
--- NOTE | 2020-02-27 13:14 | CT Scan Report ---
CT SCAN OF THE CHEST, ABDOMEN, AND PELVIS WITH IV CONTRAST CLINICAL HISTORY: Atypical chest pain. Anemia. Loss of appetite. COMPARISON STUDY: Chest x-ray dated 02/27/2020. TECHNIQUE: Following the IV administration of 94 of Optiray 320, CT scan of the chest, abdomen, and p fiona was performed from the thoracic inlet to the proximal femora. Images are reviewed in the axial, sagittal, and coronal planes. IV contrast was administered without complication. A dose lowering te chnique was utilized adhering to the principles of ALARA. CT DOSE: 1512.07 mGy.cm FINDINGS: CHEST: Thyroid: Imaged portions of the thyroid gland are normal in size and attenuation. Thoracic aorta: The thoracic aorta is normal in caliber and demonstrates standard 3-vessel arch anato my. No dissection is seen. Pulmonary vasculature: The pulmonary trunk is normal in caliber. There are no filling defects identif ied in the central pulmonary vessels to indicate pulmonary embolus. Note that this examination was no t protocoled for evaluation of the pulmonary arteries. Heart: The heart is mildly enlarged and without pericardial effusion. There are coronary artery calci fications. Lungs and pleural spaces: There is mild bibasilar scarring/atelectasis. No airspace consolidation or pleural effusion is identified. The trachea and central airways are clear. Mediastinum: There is no mediastinal lymphadenopathy. [place]: Clear. Axillae: There is no axillary lymphadenopathy. Bony thorax: No lytic or blastic lesions are identified. ABDOMEN AND PELVIS: Liver: The contrast-enhanced liver is normal in size, contour, and attenuation. There is no intra- or extrahepatic biliary ductal dilatation. The hepatic veins and portal veins are patent. Gallbladder: There are small calcified gallstones with no CT evidence of acute cholecystitis. Spleen: The spleen is top normal in size, measuring 13.1 cm in length. Pancreas: Unremarkable. Adrenal glands: Unremarkable. Kidneys: The contrast enhanced kidneys are normal in size and without hydronephrosis. The kidneys enh ance symmetrically. A 4 mm nonobstructing calculus is noted in the right kidney. Bilateral renal cyst s measure up to 4.3 cm. Additional subcentimeter cortical hypodensities also likely represent cysts b ut are too small for definitive characterization. Abdominal vasculature: The abdominal aorta is normal in course and caliber. Stomach and bowel: There is a small hiatal hernia. There is mild to moderate colonic diverticulosis w ithout CT evidence of acute diverticulitis. No bowel obstruction is seen. Mild fecal retention is not ed throughout the colon. Duodenal diverticula are noted. There is apparent wall thickening of the sig moid colon seen on image #329. The appendix is well-visualized and normal. Peritoneum: There is no intraperitoneal free air or abdominal ascites. Lymphadenopathy: None. Pelvic viscera: The prostate gland is mildly enlarged and heterogeneous. The bladder is normal as vis ualized. There are small bilateral fat-containing inguinal hernias. Skeletal structures: There is mild lumbosacral spondylosis. No lytic or blastic lesions are seen. IMPRESSION: 1. The lungs are clear. 2. There are no acute infectious or inflammatory findings in the upper pelvis. 3. Moderate colonic diverticulosis without CT evidence of acute diverticulitis. 4. Apparent wall thickening of the sigmoid colon is likely related to chronic diverticular disease. I f not recently performed, correlation with colonoscopy is recommended for further assessment. 5. Cholelithiasis and right-sided nephrolithiasis. 6. Additional findings as above. ACT 112: Negative or not required by law. Electronically signed by: Eitan Minaya M.D. 02/27/2020 1:13 PM
[2020-02-27] MEDS ORDERED: POLYETHYLENE (MIRALAX) 17 GM PACK PO ONE ×2 (17:00→21:00)
[2020-02-27] MEDS ORDERED: bisacodyL 5 MG TABEC PO ONE (17:00)
--- NOTE | 2020-02-27 17:29 | Communication Note ---
Date of Service: February 27, 2020 CT of the chest, abdomen pelvis with contrast results reviewed: No evidence of thoracic aortic dissection, no abdominal aortic aneurysm or dissection noted No intra-abdominal pathology noted Pepper Randall MD
[2020-02-27 18:44] LABS: Hemoglobin 8.3 g/dL (14.0-18.0)
[2020-02-27] MEDS: ATENOLOL 25 MG TABLET PO SCH (20:08)
[2020-02-28 07:35] LABS: Hematocrit (blood only) 27.2 % (42-52); Hemoglobin 8.2 g/dL (14.0-18.0); Mean Corpuscular Hgb Conc 30.1 g/dL (32-36); Mean Corpuscular Volume 72.9 fL (80-100); Mean Platelet Volume 9.6 fL (7.4-10.4); Platelet Count 309 K/uL (130-400); RDW Coefficient of Variation 15.8 % (11.5-14.5); Red Blood Count 3.73 M/uL (4.7-6.1); White Blood Count 4.93 K/uL (4.8-10.8)
[2020-02-28] MEDS: ATENOLOL 25 MG TABLET PO SCH (07:47)
--- NOTE | 2020-02-28 07:54 | Anesthesiology Consultation ---
Date of Service February 28, 2020 Assessment & Plan (1) Encounter for pre-operative examination: Chart Review Chart Review: Acceptable Risk for Surgery Consults Requested none ASA ASA2 Proposed Anesthesia Anesthesia Type: MAC Risk / Benefits Reviewed With: PT / POA / Parent / Guardian, Accepts Plan and Informed Consent Obtained History Surgery Operation Date: 02/28/20 15:40 Proposed Procedures p Colonoscopy EGD Dr. Suarez - Damion Suarez MD Height/Weight Height: 6 ft 1 in Weight: 101.3 kg Allergies Allergy/AdvReac Type Severity Reaction Status Date / Time No Known Allergies Allergy Unverified 02/28/20 10:57 Medications Home Medications Medication Instructions Recorded Confirmed Last Taken atenolol 25 mg PO BID 02/27/20 02/27/20 Unknown escitalopram oxalate 20 mg PO DAILY 02/27/20 02/27/20 Unknown losartan 100 mg PO DAILY 02/27/20 02/27/20 Unknown Active Medications Generic Name Dose Route Start Last Admin Trade Name Freq PRN Reason Stop Dose Admin Atenolol 25 mg 02/27/20 21:00 02/28/20 07:47 Tenormin PO 03/28/20 20:59 Not Given BID ANDREW Escitalopram Oxalate 20 mg 02/28/20 09:00 02/28/20 07:47 Lexapro Tab PO 03/29/20 08:59 Not Given DAILY ANDREW Ioversol 94 ml 02/27/20 12:48 02/27/20 12:48 Optiray 320 100ml IV 03/02/20 12:47 94 ml ONCE PRN Administration Interaction Checking Losartan Potassium 100 mg 02/28/20 09:00 02/28/20 07:47 Cozaar PO 03/29/20 08:59 Not Given DAILY ANDREW NPO Date Last Intake of Fluids: 02/27/20 Time Last Intake of Fluids: 21:00 Date Last Intake of Solids: 02/26/20 Time Last Intake of Solids: 21:00 Past Medical History Medical History Depression with anxiety HTN (hypertension) Iron deficiency anemia Exercise / Class Metabolic Activity II 4-5 Yardwork/Stairs/Walk up hill Past Family History Family History Father Coronary heart disease, Onset Age: 50 Grandfather (Paternal) Coronary heart disease, Onset Age: 50 Denies family history of Colon cancer Blood dyscrasia Past Surgical History Surgical History H/O cataract extraction History of colonoscopy 2012 History of elbow surgery Secondary to fracture History of esophagogastroduodenoscopy (EGD) 2012, negative for ulcer and celiac and H. pylori History of lumbar surgery L4-5 discectomy Past Anesthesia History No Hx of Anesthesia Complications and No Family Hx of Anesthesia Complications History of PONV No Hx of PONV and No Hx of Motion Sickness Social History Smoking Status: Never smoker Hx Alcohol Use: No Hx Substance Use: No Physical Exam Vital Signs Last Vital Signs Temp 98.2 F 02/28/20 08:34 Pulse 70 02/28/20 08:34 Resp 17 02/28/20 08:34 BP 141/70 H 02/28/20 08:34 Pulse Ox 100 02/28/20 08:34 ENMT Mouth: no dentition abnormality Thyromental Distance: > or= 3.5 Finger Breadths Mallampati Class: II Neck normal visual inspection Respiratory normal respiratory effort Auscultation: lungs clear to auscultation bilaterally Cardiovascular Rate/Rhythm: regular rate and regular rhythm Testing Laboratory Results 02/28/20 07:21 02/28/20 07:21 PT 10.8 Seconds (9.0-12.0) 02/27/20 09:02 INR 1.0 (0.9-1.1) 02/27/20 09:02 APTT 24.4 Seconds (21.0-31.0) 02/27/20 09:02 Blood Type O Positive 02/27/20 09:50 Antibody Screen NEGATIVE 02/27/20 09:50 Electrocardiogram Date: 02/27/20 Normal sinus rhythm, rate 75 bpm Normal ECG When compared with ECG of 17-JAN-2014 23:13, T wave inversion no longer evident in Anterior leads Confirmed by Henry Castañeda ([id number]) on 02/27/2020 12:42:54 PM Chest X-Ray Date: 02/27/20 IMPRESSION: Mild cardiomegaly. Echocardiogram Date: 02/27/20 Normal LV systolic function, EF 55-60% No segmental left ventricular wall motion abnormalities Normal diastolic function No significant valvular pathology Moderate aortic root dilatation
[2020-02-28 08:12] LABS: BUN Creatinine Ratio 13.3 (10-20); Calcium 9.1 mg/dl (8.5-10.1); Est GFR (African American) 112.1; Est GFR (Non-African American) 96.7; Potassium 4.2 mmol/L (3.5-5.1)
[2020-02-28] MEDS ORDERED: LOSARTAN POTASSIUM 50 MG TAB PO SCH (09:00)
[2020-02-28] MEDS ORDERED: ESCITALOPRAM OXALATE 20 MG TAB PO SCH (09:00)
--- NOTE | 2020-02-28 09:42 | Gastroenterology Progress Note ---
Date of Service February 28, 2020 Assessment & Plan (1) Iron deficiency anemia: Pt is a 59 y/o male admitted with symptomatic iron deficiency anemia w/o elo symptoms of GI/ bleeding. Previous evaluation for iron deficiency anemia in 2012 via EGD/colonoscopy evals were unrevealing. He never went through with VCE eval or Heme/Onc referral - Monitor blood ct and transfuse prn - Replete iron - Keep NPO for EGD/Colonoscopy eval today with Dr. Suarez - Recommend Heme/Onc eval - May need outpt VCE if EGD/Colonoscopy w/o source of GI bleeding Admission and Anticipated Discharge Date Admission Date: February 27, 2020 Supervising Physician Co-Signing Physician Notes I performed a history and physical examination of the patient today, including specifically on physical exam - soft abdomen. I have discussed the patient's management with the advanced practitioner. Please refer to the nurse practitioner's note for the documented findings and plan of care. EGD/Colonoscopy today Subjective Pt feels well, completed bowel prep last night. Last BM overnight clear per his report. He has been NPO since midnight. He denies abd pain, n/v Hgb up to 8.7 after 2U PRBC transfusion Review of Systems Review of Systems: All systems reviewed & are unremarkable except as noted in HPI & below Physical Exam Constitutional: WD/WN, vitals as above well groomed, cooperative and comfortable Eyes: PERRL, conjunctivae normal, anicteric sclerae ENMT: external ear and nose normal, oropharynx normal Respiratory: normal respiratory effort, lungs clear to auscultation Cardiovascular: RRR, no murmur, no edema Gastrointestinal (Abdomen): normal bowel sounds, soft, nontender, no hepatosplenomegaly Skin: no rashes, warm and dry no jaundice Psychiatric: A+Ox3, euthymic affect Lymphatic: no lymphedema Results & Data ([facility]) Vital Signs (Past 12 Hours) Vital Signs Temp Pulse Pulse Resp BP BP Pulse Ox 02/28/20 08:34 36.8 C 70 17 141/70 H 100 02/28/20 03:40 36.6 C 72 18 124/65 99 02/28/20 02:11 80 02/27/20 22:50 36.9 C 73 20 159/63 H 96
--- NOTE | 2020-02-28 11:06 | History & Physical Bridge Note ---
Date of Service February 28, 2020 History & Physical Bridge Note I have examined the patient, reviewed the History & Physical and in the interval since the performance of the History & Physical I have noted the following changes of clinical significance: no changes noted
[2020-02-28] MEDS ORDERED: LIDOCAINE HCL 2% 2 ML VIAL/AMP(20MG/ML) INFIL ONE (12:42)
[2020-02-28] MEDS ORDERED: PROPOFOL IV EMULSION 10 MG/ML 20 ML VIAL IV ONE (12:42)
--- NOTE | 2020-02-28 12:47 | GI REPORT ---
Patient Name: Henry Brasher Procedure Date: 02/28/2020 11:56 AM Date of : 1960 Admit Type: Inpatient Age: 59 Gender: Male Attending MD: Damion Suarez MD Procedure: Upper GI endoscopy Providers: Damion Suarez MD Referring MD: Pepper Hernandez Indications: Anemia Medicines: Propofol per Anesthesia Complications: No immediate complications. Estimated Blood Loss: Estimated blood loss: none. Procedure: Pre-Anesthesia Assessment: - Prior to the procedure, a History and Physical was performed, and patient medications, allergies and sensitivities were reviewed. The patient's tolerance of previous anesthesia was reviewed. - The risks and benefits of the procedure and the sedation options and risks were discussed with the patient. All questions were answered and informed consent was obtained. - Patient identification and proposed procedure were verified prior to the procedure by the physician and the nurse. The procedure was verified in the procedure room. - Pre-procedure physical examination revealed no contraindications to sedation. After obtaining informed consent, the endoscope was passed under direct vision. Throughout the procedure, the patient's blood pressure, pulse, and oxygen saturations were monitored continuously. The Endoscope was introduced through the mouth, and advanced to the third part of duodenum. The upper GI endoscopy was accomplished without difficulty. The patient tolerated the procedure well. Findings: LA Grade A (one or more mucosal breaks less than 5 mm, not extending between tops of 2 mucosal folds) esophagitis with no bleeding was found at the gastroesophageal junction. Biopsies were taken with a cold forceps for histology. Verification of patient identification for the specimen was done by the physician and nurse using the patient's name and date. A single medium submucosal nodule was found in the middle third of the esophagus, 24 cm from the incisors. Biopsies were taken with a cold forceps for histology. Mildly erythematous mucosa was found in the gastric antrum. Biopsies were taken with a cold forceps for Helicobacter pylori testing. The duodenal bulb and third portion of the duodenum were normal. Biopsies were taken with a cold forceps for histology. A large non-bleeding diverticulum was found in the area of the papilla. Impression: - LA Grade A reflux esophagitis. Biopsied. - Submucosal nodule found in the esophagus. Biopsied. - Erythematous mucosa in the antrum. Biopsied. - Normal duodenal bulb and third portion of the duodenum. Biopsied. - Non-bleeding duodenal diverticulum. Recommendation: - Await pathology results. - Perform an upper endoscopic ultrasound (UEUS) at the next available appointment to evaluate the esophageal nodule. - Perform a colonoscopy today. Damion Suarez MD 02/28/2020 12:46:48 PM This report has been signed electronically. Note Initiated On: 02/28/2020 11:56 AM Number of Addenda: 0 I attest to the content of the Intraoperative Record and orders documented therein, exceptions below {[id number]}
--- NOTE | 2020-02-28 12:53 | GI REPORT ---
Patient Name: Henry Brasher Procedure Date: 02/28/2020 11:55 AM Date of : 1960 Admit Type: Inpatient Age: 59 Gender: Male Attending MD: Damion Suarez MD Procedure: Colonoscopy Providers: Damion Suarez MD Referring MD: Pepper Hernandez Indications: Anemia Medicines: Propofol per Anesthesia Complications: No immediate complications. Estimated Blood Loss: Estimated blood loss: none. Procedure: Pre-Anesthesia Assessment: - Prior to the procedure, a History and Physical was performed, and patient medications, allergies and sensitivities were reviewed. The patient's tolerance of previous anesthesia was reviewed. - The risks and benefits of the procedure and the sedation options and risks were discussed with the patient. All questions were answered and informed consent was obtained. - Patient identification and proposed procedure were verified prior to the procedure by the physician and the nurse. The procedure was verified in the procedure room. - Pre-procedure physical examination revealed no contraindications to sedation. After I obtained informed consent, the scope was passed under direct vision. Throughout the procedure, the patient's blood pressure, pulse, and oxygen saturations were monitored continuously. The scope was introduced through the anus and advanced to the terminal ileum. The colonoscopy was performed without difficulty. The patient tolerated the procedure well. The quality of the bowel preparation was good. The terminal ileum, ileocecal valve, appendiceal orifice, and rectum were photographed. Findings: The perianal and digital rectal examinations were normal. The terminal ileum appeared normal. Scattered small and large-mouthed diverticula were found in the sigmoid colon and descending colon. Non-bleeding internal hemorrhoids were found during retroflexion. The hemorrhoids were small. Impression: - The examined portion of the ileum was normal. - Diverticulosis in the sigmoid colon and in the descending colon. - Non-bleeding internal hemorrhoids. Recommendation: - [facility]. - To visualize the small bowel, perform video capsule endoscopy at appointment to be scheduled as OP. Damion Suarez MD 02/28/2020 12:52:41 PM This report has been signed electronically. Note Initiated On: 02/28/2020 11:55 AM Number of Addenda: 0 I attest to the content of the Intraoperative Record and orders documented therein, exceptions below {[id number]}
--- NOTE | 2020-02-28 13:09 | Anesthesiology Progress Note ---
Date of Service February 28, 2020 Anesthesia Post Procedure Vital Signs Vital Signs: Temp Pulse Pulse Resp BP BP BP 02/28/20 10:57 97.7 F 69 18 152/73 H 02/28/20 08:34 98.2 F 70 17 141/70 H 02/28/20 03:40 97.9 F 72 18 124/65 02/28/20 02:11 80 02/27/20 22:50 98.4 F 73 20 159/63 H 02/27/20 17:45 97.9 F 70 16 162/72 H 02/27/20 16:51 97.9 F 75 19 162/73 H 02/27/20 16:20 97.9 F 69 19 149/72 H 02/27/20 15:51 98.2 F 75 17 148/72 H 02/27/20 15:21 98.2 F 75 17 148/72 H 02/27/20 15:20 97.9 F 74 18 166/73 H 02/27/20 15:16 84 02/27/20 15:04 97.7 F 76 18 154/74 H 02/27/20 14:49 98.2 F 72 18 138/63 02/27/20 14:06 98.2 F 71 18 162/49 H Pulse Ox 02/28/20 10:57 99 02/28/20 08:34 100 02/28/20 03:40 99 02/28/20 02:11 02/27/20 22:50 96 02/27/20 17:45 02/27/20 16:51 100 02/27/20 16:20 100 02/27/20 15:51 98 02/27/20 15:21 98 02/27/20 15:20 100 02/27/20 15:16 02/27/20 15:04 100 02/27/20 14:49 100 02/27/20 14:06 99 Pain Intensity Left Chest: Pain Intensity: 1 Transfer of Care Handoff Completed per policy Notes Mental Status: alert / awake / arousable and participated in evaluation Patient Amnestic to Procedure: Yes Nausea / Vomiting: adequately controlled Pain: adequately controlled Airway Patency, RR, SpO2: stable & adequate BP & HR: stable & adequate Hydration State: stable & adequate Anesthetic Complications: no major complications apparent and Pt Satisfied with anesthetic care
[2020-02-28] MEDS ORDERED: IRON SUCROSE 300 MG in SODIUM CHLORIDE 0.9% 250 ML IV ONE (15:15)
--- NOTE | 2020-02-28 15:38 | Hospitalist Progress Note ---
Date of Service February 28, 2020 Assessment & Plan (1) Iron deficiency anemia: Possible secondary to esophagitis/gastritis-occult GI bleed Admission labs shows: Significant iron deficiency with ferritin 1.2, T saturation 2%, iron 10 and transferrin 340. Status post 2 units of PRBC transfusion during this admission Patient is ordered 300 mg of IV Venofer Patient will continue with oral iron supplement Repeat lab work as an outpatient Patient may need repeated IV Venofer infusion in future for severe iron deficiency anemia (2) Symptomatic anemia: This is a 59-year-old male past medical history of HTN, iron deficiency anemia, depression with anxiety who presents to ED secondary to chest pain and shortness of breath x2 weeks. in the ED he was found to be significantly anemic with an H&H of 6.7 and 22.5, hypochromic and microcytic. Status post 2 units of PRBC transfusion, posttransfusion hemoglobin improved to 8.2 With resolution of symptoms Lab revealed severe iron deficiency anemia management as outlined above CT abdomen pelvis unremarkable No recent weight loss or appetite loss reported Appreciate input from GI Status post EGD: -Grade a esophagitis with no bleeding noted at the gastroesophageal junction.- Biopsy taken -A single medium submucosal nodule was found in the middle third of the esophagus -biopsy taken -Mildly erythematous mucosa was found in gastric antrum -The duodenal bulb and third portion of the duodenum was normal -A large nonbleeding diverticulum was noted in the area of the papilla. Colonoscopy: Normal terminal illium, scattered small and large mouth diverticula was found in sigmoid colon and ascending colon -Nonbleeding internal hemorrhoids are found during retroflexion. Stable to be discharged home today Outpatient follow-up with GI for endoscopic ultrasound for submucosal nodule found on the middle third of the esophagus Shortness of breath/dyspnea on exertion Due to anemia, symptoms resolved after PRBC transfusion Echo shows normal study, CT chest: No PE, normal lung study (3) HTN (hypertension): continue losartan and atenolol (4) Depression with anxiety: continue lexapro mood stable (5) DVT prophylaxis: SCD and teds, patient is encouraged to ambulate Follow up: Follow-up with PCP Dr. Meyers upon discharge We will need GI, and hematology oncology follow-up as an outpatient Admission and Anticipated Discharge Date Admission Date: February 27, 2020 Subjective Patient had EGD and colonoscopy this morning No episode of GI bleed, no abdominal pain/ no nausea, vomiting Diet advanced, tolerating well Hgb up to 8.7 after 2U PRBC transfusion Denies of any dyspnea on exertion, symptoms of dizzy spell lightheadedness are resolved, With resolution of feeling fatigued Patient requesting to be discharged home today Review of Systems Review of Systems: All systems reviewed & are unremarkable except as noted in HPI & below Constitutional: no fatigue Neurologic: no generalized weakness and no dizziness Physical Exam Physical Exam: Constitutional: WD/WN, pale lower, vitals as above, NAD, sitting up in bed, pleasant, conversing easily Head: Normocephalic, Atraumatic Eyes: PERRL, conjunctivae normal, anicteric sclerae ENMT: external ear and nose normal, oropharynx normal Neck: trachea midline, no thyromegaly normal visual inspection Respiratory: normal respiratory effort, lungs clear to auscultation, no wheeze, rales, rhonchi. Normal insp/exp effort, no accessory muscle use Cardiovascular: RRR, no murmur, no edema Vessels: no JVD or carotid bruit Chest: normal inspection of chest Abdomen: normal bowel sounds, soft, nontender, no hepatosplenomegaly Musculoskeletal: no cyanosis or clubbing, extremities motor strength 5/5 Skin: no rashes, warm and dry normal turgor Neurologic: PERRL, EOMI, accommodation nl, no face palsy, no dysarthria CN's II-XI intact bilaterally and moves all extremities Psychiatric: A+Ox3, euthymic affect Lymphatic: no cervical or axillary lymphadenopathy : deferred Results & Data Results & Data ([facility]) Vital Signs (Past 12 Hours) Vital Signs Temp Pulse Resp BP BP Pulse Ox 02/28/20 13:21 71 20 124/77 97 02/28/20 13:05 82 20 117/73 99 02/28/20 10:57 36.5 C 69 18 152/73 H 99 02/28/20 08:34 36.8 C 70 17 141/70 H 100 02/28/20 03:40 36.6 C 72 18 124/65 99
--- NOTE | 2020-02-28 15:44 | Discharge Summary ---
Date of Service February 28, 2020 Admission HPI Per Admitting Provider This is a 59-year-old male who has significant past medical history of HTN, iron deficiency anemia, depression with anxiety who presents to ED secondary to chest pain and shortness of breath x2 weeks. is at bedside. He admits over the last 2 weeks developing chest pain and pressure like he is being, "hit by a sandbag," even with minimal exertion including lifting something. He also admits to getting significantly short of breath with simple daily activities. He is concerned due to a family history of CAD in his father and grandfather in their 50s. He has never experienced this in the past. He further admits to being overall fatigued, increased arthralgias, general malaise and occasional nausea with emesis. He denies any recent fever but admits to chills and denies sweats. He does admit to feeling lightheaded like he could pass out but denies any elo syncope or dizzy. He denies any headache, change in vision, change in hearing, palpitations, cough, hemoptysis, hematemesis, abdominal pain, diarrhea, melena, medic easier, hematuria, dysuria increased urgency or frequency with urination. He does have a known past medical history of iron deficiency anemia in which she was prescribed oral iron. He admits to not being compliant with it due to it causing nausea and poor tolerance. Of significance he did have a work-up in 2012 for iron deficiency anemia and underwent EGD and colonoscopy which was negative for celiac's disease or source of bleeding. It was recommended at that time to do a video endoscopy capsule as well as hematology evaluation. He denies any prior history of blood dyscrasias or family history of this. He admits to being a meat, potatoes and vegetables elvin and feels he does eat adequate iron intake. He did take his morning medications. He denies significant NSAID use and denies alcohol use. Denies family history of blood dyscrasia or colorectal cancer. Upon evaluation in the ED he was found to be significantly anemic with an H&H of 6.7 and 22.5, hypochromic and microcytic. Platelet count was WNL. He did have negative COVID test from [employer] on 02/24. Further lab abnormalities included significant iron deficiency with ferritin 1.2, T saturation 2%, iron 10 and transferrin 340. His initial troponin was negative. Lyme screen was negative, Anaplasma pending. Chest x-ray with mild cardiomegaly but no acute cardiopulmonary disease. EKG revealed normal sinus rhythm at [address] or T wave changes. Principal Diagnosis SYMPTOMATIC IRON DEFICIENCY ANEMIA ESOPHAGITIS Discharge Exam Constitutional WD/WN, vitals as above well groomed, cooperative and comfortable Eyes PERRL, conjunctivae normal, anicteric sclerae ENMT external ear and nose normal, oropharynx normal Mouth: no dentition abnormality Mallampati Class: II Neck normal visual inspection Respiratory normal respiratory effort, lungs clear to auscultation normal respiratory effort Auscultation: lungs clear to auscultation bilaterally Cardiovascular RRR, no murmur, no edema Rate/Rhythm: regular rate and regular rhythm Gastrointestinal (Abdomen) normal bowel sounds, soft, nontender, no hepatosplenomegaly Skin no rashes, warm and dry no jaundice Psychiatric A+Ox3, euthymic affect Lymphatic no lymphedema Discharge Data Allergies Allergy/AdvReac Type Severity Reaction Status Date / Time No Known Allergies Allergy Unverified 02/28/20 10:57 Consultations 02/27/20 09:58 ED Decision to Admit Stat 02/27/20 10:02 Consult Gastroenterology Routine Procedures Performed Operation Date: 02/28/20 15:40 Actual Procedures p EGD Biopsy Cytology - Damion Suarez MD s Colonoscopy - Damion Suarez MD Ordered Studies 02/27/20 12:30 CT abd pelvis IV con only Routine CT chest w con Routine Hospital Course (1) Iron deficiency anemia: Possible secondary to esophagitis/gastritis-occult GI bleed Admission labs shows: Significant iron deficiency with ferritin 1.2, T saturation 2%, iron 10 and transferrin 340. Status post 2 units of PRBC transfusion during this admission Patient is ordered 300 mg of IV Venofer Patient will continue with oral iron supplement Repeat lab work as an outpatient Patient may need repeated IV Venofer infusion in future for severe iron deficiency anemia (2) Symptomatic anemia: This is a 59-year-old male past medical history of HTN, iron deficiency anemia, depression with anxiety who presents to ED secondary to chest pain and shortness of breath x2 weeks. in the ED he was found to be significantly anemic with an H&H of 6.7 and 22.5, hypochromic and microcytic. Status post 2 units of PRBC transfusion, posttransfusion hemoglobin improved to 8.2 With resolution of symptoms Lab revealed severe iron deficiency anemia management as outlined above CT abdomen pelvis unremarkable No recent weight loss or appetite loss reported Appreciate input from GI Status post EGD: -Grade a esophagitis with no bleeding noted at the gastroesophageal junction.- Biopsy taken -A single medium submucosal nodule was found in the middle third of the esophagus -biopsy taken -Mildly erythematous mucosa was found in gastric antrum -The duodenal bulb and third portion of the duodenum was normal -A large nonbleeding diverticulum was noted in the area of the papilla. Colonoscopy: Normal terminal illium, scattered small and large mouth diverticula was found in sigmoid colon and ascending colon -Nonbleeding internal hemorrhoids are found during retroflexion. Stable to be discharged home today Outpatient follow-up with GI for endoscopic ultrasound for submucosal nodule found on the middle third of the esophagus Shortness of breath/dyspnea on exertion Due to anemia, symptoms resolved after PRBC transfusion Echo shows normal study, CT chest: No PE, normal lung study (3) HTN (hypertension): continue losartan and atenolol (4) Depression with anxiety: continue lexapro mood stable (5) DVT prophylaxis: SCD and teds, patient is encouraged to ambulate Follow up: Follow-up with PCP Dr. Meyers upon discharge We will need GI, and hematology oncology follow-up as an outpatient Total Time Total Time Spent Total Time Spent (In Minutes): 35 mins Total Time Includes: Examination of the Patient, Discharge Planning, Medication Reconciliation and Communication With Other Providers Discharge Plan Discharge Items Patient Disposition: Home - Self-Care Reason For Visit: ANEMIA,SOB Discharge Diagnosis: Symptomatic iron deficiency anemia Esophagitis Activity: Resume your previous activity Non-emergency contact: Primary Care Provider Call non-emergency contact if: you have any medication questions Follow-up/Referrals: Jose Alfredo Meyers MD [Primary Care Provider] - 03/05/20 12:00 pm Diet: Heart Healthy Addtl Attending Provider Instructions: Do not take aspirin, Aleve, Advil, Motrin, ibuprofen, naproxen-can cause wo rsening of your acid reflux/esophagitis Avoid hot spicy food, excessive caffeine intake which stimulates-for acid production Your discharged on a medication to reduce acid content in your stomach: Protonix 40 mg 1 tablet daily Repeat blood work: CBC with next physician visit You will need iron study to be checked in next 4 weeks Azeem CASTANON will contact you for outpatient follow-up You will benefit with hematology oncology referral for further evaluation of chronic anemia Pending Studies at Discharge: Yes Studies:: Complete blood count Stand-Alone Forms: My [facility], Smoking Cessation Medications and DC Order Prescriptions: New pantoprazole 40 mg Tablet,Delayed Release (Dr/Ec) 40 mg PO DAILY Qty: 30 RF: 3 Continued atenolol 25 mg tablet 25 mg PO BID RF: 0 losartan 100 mg tablet 100 mg PO DAILY RF: 0 escitalopram oxalate 20 mg tablet 20 mg PO DAILY RF: 0 Discharge Orders: Discharge Order (Routine); Ordered 02/28/20 Ordered By: Pepper Huff/Other Patient Handouts: Esophagitis, Anemia Admission Data Admit Date/Time: 02/27/20 10:02 Attending Provider: Pepper Randall Admit Provider: Pepper Randall Primary Care Provider: Jose Alfredo Meyers Other Providers: Pepper Randall ; Noemi Penny ; Jamia Motta ; Dk Murcia ; Carey Prince ; Duncan Allan ; Rick Mcmahon ; Adan Velasco ; Rosario Powell ; Henry Suresh ; Matthew Valdes ; Gita Sheikh ; Monica Beauchamp ; Regine Duggan ; Kayli Leon ; Damion Suarez Other Interventions: Discharge Summary Assessment (RN) Last Done: 02/28/20 16:21 DC Date/Time DO NOT enter until pt leaves facility: 02/28/20 17:19
[2020-02-28] MEDS ORDERED: PANTOprazole 40 MG TAB PO SCH (21:00)
[2020-03-02 07:53] LABS: Ehrlichia chaff IgG Ab <1:64 (<1:64); Ehrlichia chaff IgM Ab <1:20 (<1:20)
== END 2020-02-28 17:19 | disposition home or self-care (01) | DRG 812 ==
LOC: ED 08:34 → 2W 10:02

== ENCOUNTER 2023-08-23 12:21 | Inpatient (IN) ==
[2023-08-23] MEDS ORDERED: SODIUM CHLORIDE 0.9% 1,000 ML IV ONE (12:32)
[2023-08-23] MEDS ORDERED: ONDANSETRON INJ 2 MG/ML 2 ML VIAL IV STA (12:32)
[2023-08-23] MEDS ORDERED: FAMOTIDINE 20MG IV PUSH 20 MG/5 ML SYR IV STA (12:32)
[2023-08-23] MEDS ORDERED: SODIUM CHLORIDE 0.9% 250 ML IV PRN (12:32)
--- NOTE | 2023-08-23 12:41 | Emergency Department Note ---
Impression & Plan GI bleed, Hematemesis, Anemia, Hypotension, Syncope ED Provider Note NAME: YULIA LIM AGE: 63 SEX: M : 1960 ARRIVES VIA: Ambulance INFORMANT: [Patient] ED PROVIDER(S): [Eitan Parry MD] CHIEF COMPLAINT: Rectal bleeding HISTORY OF PRESENT ILLNESS: The patient is a 63-year-old male who states that 3 days ago, Tuesday, he began with some abdominal cramping and nausea and vomiting. No blood in the vomit. The following day, he had abdominal cramping but no further vomiting. Yesterday, he was just fatigued and felt he was likely improving. Today, he suddenly felt dizzy and weak and had to run to the bathroom. He had very dark/bloody stool and almost passed out standing up from the toilet. He thinks he may have passed out for a brief time after getting off the toilet as he was apparently on the bathroom floor. He does not recall how he got there. No injury or pain from the potential syncopal spell. The ambulance was called. Patient states he did vomit dark material after his bloody bowel movement. The patient does use ibuprofen almost daily. He has no history of GI bleeding. He is not on blood thinning agents. There has been no cough or congestion. No shortness of breath. No fever. PMHx/PSHx/Social Hx: See Below PHYSICAL EXAM: GENERAL: Patient is in no acute distress. HEENT: No acute trauma, normocephalic atraumatic, mucous membranes moist, no nasal congestion. NECK: No stridor, no adenopathy, no meningismus, trachea is midline. LUNGS: Clear to auscultation bilaterally, no wheeze, no rhonchi, breath sounds equal. HEART: Without murmurs gallops or rubs, regular rate and rhythm. ABDOMEN: Soft, nontender, no peritonitis. EXTREMITIES: No cyanosis, full range of motion of all the joints without pain or difficulty. The patient does have some dried bloody material on his fingers and right foot. NEUROLOGIC: Oriented x 3, no acute motor or sensory deficits, no focal weakness. SKIN: No jaundice, no diaphoresis. Pale. DIFFERENTIAL DIAGNOSIS: Upper GI bleed, lower GI bleed, anemia, dysrhythmia, electrolyte imbalance, among others. EMERGENCY DEPARTMENT PROCEDURES: MEDICAL DECISION MAKING: There is no leukocytosis. The patient is anemic with a hemoglobin just under 11. The patient carries a history of anemia but I have no recent values to use for comparison. There is a normal platelet count. No coagulopathy. Renal panel testing shows a high BUN consistent with upper GI bleeding. No renal failure. No concerning liver enzyme elevation. ECG shows a sinus rhythm, no ischemia. Cardiac enzyme testing x 1 is not consistent with acute cardiac injury. Chest x-ray does not show mediastinal widening, pneumonia or pneumothorax. Abdominal and pelvis CT does not show bowel obstruction. The patient did have some thickening of his esophagus. On exam, the patient was pale and borderline hypotensive. Initial systolic blood pressure was in the 90s. He had older appearing bloody material on his fingers and toes. The patient was given a liter of IV saline for hydration. He had a listed allergy to pantoprazole so, he only received IV Pepcid. He received IV Zofran for nausea. The patient is in need of a hospital stay. He has what looks to be an upper GI bleed. He will require further resuscitation. He likely will need an endoscopy. I talked to the patient about his findings, I spoke with case management, the on-call hospitalist was consulted. Of note, patient's blood pressure has improved with treatment here in the ED. Prior/Outside records/notes reviewed: Today's EMS notes discussing his presentation and care on the drive to the hospital. ECG per my interpretation: Indication was GI bleeding. The ECG shows a sinus rhythm with PVCs. The rate is 75. There is no concerning ST elevation. The QTc is 462. Continuous Cardiac Monitoring per my interpretation: An order was placed for continuous cardiac monitoring. The monitor shows a rate of 96 with normal sinus rhythm. Imaging/x-ray results per my interpretation: Chest x-ray does not show free air, pneumonia or pneumothorax. Chronic Medical/Social conditions affecting care: Care/Management discussed with: Case management, the on-call hospitalist. Level of care consideration(s): After review of the information above and other included data: --I believe the patient requires escalation of care to admission Critical Care Note: I have personally spent 48 minutes of critical care time in the direct management of this patient. This includes bedside care, interpretation of diagnostic studies, and testing, discussion with consultants, patient, and family members, and other required patient management activities. This 48 minutes is in excess of all separately billable procedures. DISPOSITION: Admitted with GI consult Past Med/Surg History Medical History (Updated 08/23/23 @ 19:41 by Eitan Parry MD) Depression with anxiety HTN (hypertension) Iron deficiency anemia Surgical History H/O cataract extraction History of lumbar surgery L4-5 discectomy History of colonoscopy 2012 History of elbow surgery Secondary to fracture History of esophagogastroduodenoscopy (EGD) 2012, negative for ulcer and celiac and H. pylori Family History Father Coronary heart disease, Onset Age: 50 Grandfather (Paternal) Coronary heart disease, Onset Age: 50 Denies family history of Colon cancer Blood dyscrasia Social History Smoking Status: Never smoker Hx Alcohol Use: No Hx Substance Use: No Preferred Language: Greenlandic Communication Ability: Effective Baggage Screener Required: No Beliefs That Will Affect Care: None Current Living Situation: Spouse current occupational status: employed Other Information That Helps Us Care for You: No Feels Safe at Home: Yes Safety Concerns: Feels Safe At This Time Assistive Devices: None Allergies Allergies Allergy/AdvReac Type Severity Reaction Status Date / Time sucralfate AdvReac Mild Vomiting Verified 08/23/23 14:16 Home Meds Home Medications Medication Instructions Recorded Confirmed amlodipine 5 mg tablet 5 mg PO DAILY 08/23/23 08/23/23 escitalopram oxalate 20 mg tablet 20 mg PO DAILY 08/23/23 08/23/23 iron,carbonyl 65 mg-vitamin C 125 1 tab PO BID 08/23/23 08/23/23 mg tablet,delayed release (Vitron-C) losartan 100 mg tablet 100 mg PO DAILY 08/23/23 08/23/23 Results & Data (ED) Vital Signs Vital Signs - 24 hr 08/23/23 12:29 08/23/23 12:45 08/23/23 12:49 Pulse Rate 97 H 97 H 96 H Pulse Rhythm Regular Respiratory Rate 12 19 Blood Pressure 99/60 L Blood Pressure Mean 73 Pulse Oximetry 99 99 Oxygen Delivery Method Room Air Room Air Sepsis Recent Fever Within 48 Hours No Sepsis New/Unexplained Change in Mental Status N/A Sepsis Action Taken by Nursing No Action Required Home Medications Current Medication List: was personally reviewed by me Laboratory Data Attestation: I reviewed the patient's lab results. 08/23/23 17:57 08/23/23 12:51 Lab Results 08/23/23 08/23/23 Range/Units 12:43 12:51 WBC 9.09 (4.8-10.8) K/ul RBC 3.55 L (4.70-6.10) M/uL Hgb 10.8 L (14.0-18.0) g/dl Hct 32.9 L (42.0-52.0) % MCV 92.7 (80.0-100.0) fL MCH 30.4 (25.0-34.0) pg MCHC 32.8 (32.0-36.0) g/dL RDW Std Deviation 43.0 (36.4-46.3) fL RDW Coeff of April 12.7 (11.5-14.5) % Plt Count 287 (130-400) K/uL MPV 10.1 (9.4-12.4) fL Immature Gran % (Auto) 0.8 % Neut % (Auto) 79.4 % Lymph % (Auto) 13.8 % [place] % (Auto) 5.6 % Eos % (Auto) 0.0 % Baso % (Auto) 0.4 % Neut # (Auto) 7.22 H (1.40-6.50) K/uL Lymph # (Auto) 1.25 (1.20-3.40) K/uL [place] # (Auto) 0.51 (0.11-0.59) K/uL Eos # (Auto) 0.00 (0.00-0.50) K/uL Baso # (Auto) 0.04 (0.00-0.20) K/uL Immature Gran # (Auto) 0.07 (0.01-0.20) K/uL PT 12.0 (9.0-12.0) Seconds INR 1.1 (0.9-1.1) APTT 24 (21-31) Seconds PTT Ratio 0.9 Sodium 135 L (136-145) mmol/L Potassium 4.1 (3.5-5.1) mmol/L Chloride 105 (98-107) mmol/L Carbon Dioxide 23 (21-32) mmol/L Anion Gap 7 (3-11) BUN 53 H (6-23) mg/dl Creatinine 0.99 (0.6-1.4) mg/dl Est Cr Clr Drug Dosing 103.0 ml/min Est GFR ( Amer) 94.9 ml/min Est GFR (Non-Af Amer) 81.9 ml/min BUN/Creatinine Ratio 53.5 H (10-20) Glucose 179 H (70-99(Fasting)) mg/dl Calcium 8.6 (8.6-10.3) mg/dl Total Bilirubin 0.6 (0.2-1.0) mg/dl AST 11 L (13-39) U/L ALT 14 (7-52) U/L Alkaline Phosphatase 42 (34-104) U/L Troponin I High Sens 8.4 (0-20) pg/ml Total Protein 5.8 L (6.0-8.3) gm/dl Albumin 3.4 (3.4-5.0) gm/dl Globulin 2.4 L (2.5-4.0) gm/dl Albumin/Globulin Ratio 1.4 (0.9-2) Blood Type O Positive Antibody Screen NEGATIVE Crossmatch See Detail Administered Medications Lactated Ringer's (Lr) 1,000 mls @ 100 mls/hr IV .Q10H ANDREW Stop: 09/22/23 16:56 Last Admin: 08/23/23 18:19 Dose: 100 mls/hr Documented By: AMB Discontinued Medications Sodium Chloride (Nss) 1,000 mls @ 999 mls/hr IV .Q1H1M ONE Stop: 08/23/23 13:32 Last Infusion: 08/23/23 15:14 Dose: Infused Documented By: Admin: 08/23/23 12:51 Dose: 999 mls/hr Documented By: KADEEM Famotidine (Pepcid 20mg Iv Push) 20 mg in 5 mls @ 2.5 mls/min IV NOW STA Stop: 08/23/23 12:33 Last Admin: 08/23/23 13:00 Dose: 2.5 mls/min Documented By: KADEEM Pantoprazole Sodium 40 mg/ (Syringe) 10 mls @ 5 mls/min IV ONE ONE Stop: 08/23/23 14:46 Last Admin: 08/23/23 15:01 Dose: 5 mls/min Documented By: MARSHAL Ioversol (Optiray 320 500ml) 94 ml IV ONCE ONE Stop: 08/23/23 13:13 Last Admin: 08/23/23 13:13 Dose: 94 ml Documented By: DARCIE Ondansetron HCl (Ondansetron Inj 2 Mg/Ml 2 Ml Vial) 4 mg IV ONE STA Stop: 08/23/23 12:33 Last Admin: 08/23/23 13:00 Dose: 4 mg Documented By: KADEEM Imaging Data Radiologist's Impression: Abdomen/Pelvis CT 08/23/23 12:[address] WITH IV CONTRAST CT DOSE: 1624.98 mGy.cm HISTORY: Weakness. GI bleed. Stomach cramping. TECHNIQUE: Multiaxial CT images of the abdomen and pelvis were performed following the use of intravenous contrast. A dose lowering technique was utilized adhering to the principles of ALARA. COMPARISON STUDY: Abdomen and pelvis CT 02/27/2020. FINDINGS: Mild dependent changes seen within the lung bases. No pneumoperitoneum. No pneumatosis. No acute fractures identified. Mild circumferential thickening of the distal esophagus. Cholelithiasis. No gallbladder wall thickening. The main portal vein is patent. The liver, spleen, adrenal glands, and pancreas are unremarkable. Bilateral nephrolithiasis. No ureteral stones. No hydronephrosis. Bilateral renal hypodense lesions are similar to the prior study and favor cysts. No retroperitoneal lymphadenopathy. Normal caliber abdominal aorta. No pelvic lymphadenopathy or pelvic free fluid. The prostate gland is mildly enlarged. The bladder is unremarkable. Colonic diverticulosis. No evidence for acute diverticulitis. Normal appendix. No dilated loops of bowel to suggest an obstruction. Fluid-filled nondistended colon. IMPRESSION: 1. Fluid-filled nondistended colon. This suggests a gastroenteritis/diarrheal illness. 2. No evidence for bowel obstruction. 3. Normal appendix. 4. Bilateral nephrolithiasis. No hydronephrosis. 5. Cholelithiasis. 6. Mild circumferential thickening of the distal esophagus. This favors a mild esophagitis. 7. Colonic diverticulosis. No evidence for acute diverticulitis. 8. Additional findings as described above. ACT 112: Negative or not required by law. Electronically signed by: Frank Castaneda M.D. 08/23/2023 1:39 PM Chest X-Ray 08/23/23 12:32 XR chest 1V portable CLINICAL HISTORY: vomiting TECHNIQUE: Single frontal radiograph of the chest was obtained. Comparison: Comparison is made to chest radiograph 04/29/2020 FINDINGS: No lines and tubes are seen. The cardiomediastinal silhouette is normal. The lungs are clear. No evidence of pleural effusion or pneumothorax. IMPRESSION: No acute chest disease. ACT 112: Negative or not required by law. Electronically signed by: Franco White M.D. 08/23/2023 1:10 PM Discharge Plan Visit Data Chief Complaint: Rectal Bleed ED Provider: Eitan Parry Discharge Problem: GI bleed, Hematemesis, Anemia, Hypotension, Syncope Patient Disposition: Admitted As Inpatient Condition: Fair Discharge Instructions Interventions: ED Discharge Assessment Last Done: 08/23/23 16:27 Discharge Problem: GI bleed Qualifiers: GI bleed type/associated pathology: unspecified gastrointestinal hemorrhage type Qualified Code(s): K92.2 - Gastrointestinal hemorrhage, unspecified Hematemesis Qualifiers: Nausea presence: with nausea Qualified Code(s): K92.0 - Hematemesis Anemia Qualifiers: Anemia type: unspecified type Qualified Code(s): D64.9 - Anemia, unspecified Hypotension Qualifiers: Hypotension type: unspecified hypotension type Qualified Code(s): I95.9 - Hypotension, unspecified Syncope Qualifiers: Syncope type: unspecified Qualified Code(s): R55 - Syncope and collapse
[2023-08-23] MEDS ORDERED: OPTIRAY 320 500ml IV ONE (13:12)
--- NOTE | 2023-08-23 13:12 | XRay Report ---
XR chest 1V portable CLINICAL HISTORY: vomiting TECHNIQUE: Single frontal radiograph of the chest was obtained. Comparison: Comparison is made to chest radiograph 04/29/2020 FINDINGS: No lines and tubes are seen. The cardiomediastinal silhouette is normal. The lungs are clear. No evid ence of pleural effusion or pneumothorax. IMPRESSION: No acute chest disease. ACT 112: Negative or not required by law. Electronically signed by: Franco White M.D. 08/23/2023 1:10 PM
[2023-08-23 13:16] LABS: Basophils # (auto) 0.04 K/uL (0.00-0.20); Basophils % (auto) 0.4 %; Hematocrit (blood only) 32.9 % (42.0-52.0); Hemoglobin 10.8 g/dl (14.0-18.0); Immature Granulocytes # (auto) 0.07 K/uL (0.01-0.20); Immature Granulocytes % (auto) 0.8 %; Lymphocytes # (auto) 1.25 K/uL (1.20-3.40); Lymphocytes % (auto) 13.8 %; Mean Corpuscular Hemoglobin 30.4 pg (25.0-34.0); Mean Corpuscular Hgb Conc 32.8 g/dL (32.0-36.0); Mean Corpuscular Volume 92.7 fL (80.0-100.0); Mean Platelet Volume 10.1 fL (9.4-12.4); Monocytes # (auto) 0.51 K/uL (0.11-0.59); Monocytes % (auto) 5.6 %; Neutrophils # (auto) 7.22 K/uL (1.40-6.50); Neutrophils % (auto) 79.4 %; Platelet Count 287 K/uL (130-400); RDW Coefficient of Variation 12.7 % (11.5-14.5); Red Blood Count 3.55 M/uL (4.70-6.10); White Blood Count 9.09 K/ul (4.8-10.8)
[2023-08-23 13:33] LABS: Albumin Globulin Ratio 1.4 (0.9-2); Albumin Level 3.4 gm/dl (3.4-5.0); BUN Creatinine Ratio 53.5 (10-20); Bilirubin,Total 0.6 mg/dl (0.2-1.0); Calcium 8.6 mg/dl (8.6-10.3); Est GFR (African American) 94.9 ml/min; Est GFR (Non-African American) 81.9 ml/min; Globulin 2.4 gm/dl (2.5-4.0); Potassium 4.1 mmol/L (3.5-5.1); Total Protein 5.8 gm/dl (6.0-8.3)
[2023-08-23 13:37] LABS: Troponin I High Sensitivity 8.4 pg/ml (0-20)
[2023-08-23 13:39] LABS: INR 1.1 (0.9-1.1); Partial Thromboplastin Ratio 0.9; Partial Thromboplastin Time 24 Seconds (21-31)
--- NOTE | 2023-08-23 13:40 | CT Scan Report ---
ABDOMEN AND PELVIS CT WITH IV CONTRAST CT DOSE: 1624.98 mGy.cm HISTORY: Weakness. GI bleed. Stomach cramping. TECHNIQUE: Multiaxial CT images of the abdomen and pelvis were performed following the use of intrave nous contrast. A dose lowering technique was utilized adhering to the principles of ALARA. COMPARISON STUDY: Abdomen and pelvis CT 02/27/2020. FINDINGS: Mild dependent changes seen within the lung bases. No pneumoperitoneum. No pneumatosis. No acute fractures identified. Mild circumferential thickening of the distal esophagus. Cholelithiasis. No gallbladder wall thickening. The main portal vein is patent. The liver, spleen, adrenal glands, an d pancreas are unremarkable. Bilateral nephrolithiasis. No ureteral stones. No hydronephrosis. Bilate ral renal hypodense lesions are similar to the prior study and favor cysts. No retroperitoneal lympha denopathy. Normal caliber abdominal aorta. No pelvic lymphadenopathy or pelvic free fluid. The prosta te gland is mildly enlarged. The bladder is unremarkable. Colonic diverticulosis. No evidence for acu te diverticulitis. Normal appendix. No dilated loops of bowel to suggest an obstruction. Fluid-filled nondistended colon. IMPRESSION: 1. Fluid-filled nondistended colon. This suggests a gastroenteritis/diarrheal illness. 2. No evidence for bowel obstruction. 3. Normal appendix. 4. Bilateral nephrolithiasis. No hydronephrosis. 5. Cholelithiasis. 6. Mild circumferential thickening of the distal esophagus. This favors a mild esophagitis. 7. Colonic diverticulosis. No evidence for acute diverticulitis. 8. Additional findings as described above. ACT 112: Negative or not required by law. Electronically signed by: Frank Castaneda M.D. 08/23/2023 1:39 PM
--- NOTE | 2023-08-23 14:19 | History & Physical Report ---
Date of Service August 23, 2023 Assessment & Plan (1) Symptomatic anemia: (2) Hematemesis: (3) GIB (gastrointestinal bleeding): (4) HTN (hypertension): Plan This is a 63-year-old male who has a significant past medical history of HTN, prediabetes, diastolic dysfunction, history of esophagitis, iron deficiency anemia, depression with anxiety and history of osteomyelitis who presents to ED secondary to syncope, bloody vomit and diarrhea x 1 day. Syncope - likely 2/2 to hypovolemia in setting of GIB and hypotension Suspected Upper GIB Hematemesis/Melena Symptomatic Anemia admit to PCU hgb in 06/2023 15 per outpt chart review iron studies at that time revealed iron 78, ferritin 92, TIBC 349 and TSAT 22 Does admit to NSAID use Per outpatient record documented allergy to pantoprazole; however, after further discussion with patient he states that he was allergic to Sucralfate which caused him to vomit Start PPI BID NPO consult GI - likely needs endoscopy previous hx of esophagitis on scope from 2019, h pylori negative Type and Cross x [address] on hold, no indication for transfusion at this time H&H q6hr starting at 1800 IVF LR @100cc/hr Blood consent was obtained from the patient as delegated by Dr. Rizvi. Risks and benefits were explained. All questions were answered, and the patient was offered the opportunity to discuss with attending physician and declined. HTN bp on lower side, likely 2/2 hypovolemia hold losartan and amlodipine Iron Deficiency anemia on vitron C as outpt anemia panel as above Depression w anxiety mood stable continue escitalopram DVT ppx: SCDS FULL CODE PCP: Dr. Meyers Dispo: PCU Pt was seen and examined in collaboration with Dr. Rizvi, please see addendum A total of 60 was spent coordinating, documenting, and providing care for this patient excluding time spent in the performance of separately billed services. This included personally viewing all current laboratories and imaging studies, medication reconciliation, outpatient chart review, and discussion with specialists. History of Present Illness Chief Complaint: Syncope, bloody vomit and diarrhea. Primary Care Provider: Jose Alfredo Meyers MD This is a 63-year-old male who has a significant past medical history of HTN, prediabetes, diastolic dysfunction, history of esophagitis, iron deficiency anemia, depression with anxiety and history of osteomyelitis who presents to ED secondary to syncope, bloody vomit and diarrhea x 1 day. Sx started 3 days ago. Initially he thought he was getting the, "GI flu." He developed abdominal cramping, vomiting and fatigue. Over last 2 days abdominal cramping resolved and he thought he was getting better. Today he woke up and started to have his coffee and all of a sudden felt really weak and tired. All of a sudden he kept getting worse. He got up to go to the bathroom and moved bowels. As he got up to then throw up he passed out and proceeded to vomit. He was laying on bathroom floor and he could not get up. His stool this morning was, "absolutely black and gel." His vomit was also black as well. He has never had anything like this before. He last had lab work in june 2023. His hemoglobin was 15. He does admit to taking ibuprofen 2-3x/day for a few months. He doesn't do this everyday, but he has been taking it more frequently. Over last few months he hasn't had any food intolerances or post prandial pain. He does have an allergy to pantoprazole per records. He states he had a medication he had to drink once and it made him vomit, but he denies any medication every causing swelling of lip/tongue/throat. He is pretty certain it was not pantoprazole he was allergic too. He denies any recent f/c/s, chest pain, sob, n/v/d/, abd pain, dysuria, increased urg/freq. He denies any tobacco or alcohol use. He denies hx of hemorrhoids. Last hospitalized in 2019 for iron deficiency anemia requiring blood transfusion and IV venofer transfusion. He had EGD/C scope that showed esophagitis but was otherwise negative. Allergies Allergy/AdvReac Type Severity Reaction Status Date / Time sucralfate AdvReac Mild Vomiting Verified 08/23/23 14:16 Home Medications Medication Instructions Recorded Confirmed Type amlodipine 5 mg tablet 5 mg PO DAILY 08/23/23 08/23/23 History escitalopram oxalate 20 mg tablet 20 mg PO DAILY 08/23/23 08/23/23 History iron,carbonyl 65 mg-vitamin C 125 1 tab PO BID 08/23/23 08/23/23 History mg tablet,delayed release (Vitron-C) losartan 100 mg tablet 100 mg PO DAILY 08/23/23 08/23/23 History Past Med/Surg History Medical History (Updated 08/23/23 @ 14:38 by Skylar Correa PA-C) Depression with anxiety HTN (hypertension) Iron deficiency anemia Surgical History H/O cataract extraction History of lumbar surgery L4-5 discectomy History of colonoscopy 2012 History of elbow surgery Secondary to fracture History of esophagogastroduodenoscopy (EGD) 2012, negative for ulcer and celiac and H. pylori Family History Father Coronary heart disease, Onset Age: 50 Grandfather (Paternal) Coronary heart disease, Onset Age: 50 Denies family history of Colon cancer Blood dyscrasia Social History Smoking Status: Never smoker Hx Alcohol Use: No Hx Substance Use: No Preferred Language: Amharic Communication Ability: Effective Charge Preparation Technician Required: No Beliefs That Will Affect Care: None Current Living Situation: Spouse current occupational status: employed Feels Safe at Home: Yes Assistive Devices: None Review of Systems Review of Systems: All systems reviewed & are unremarkable except as noted in HPI & below Physical Exam Physical Exam: please refer to Dr. rizvi for physical exam findings. Results & Data Results & Data Vital Signs (Past 12 Hours) Vital Signs Pulse Resp BP Pulse Ox O2 Del Method 08/23/23 12:49 96 H 19 99 Room Air 08/23/23 12:45 97 H 08/23/23 12:29 97 H 12 99/60 L 99 Room Air Laboratory Results I have independently reviewed and interpreted patient's admitting labs including CBC, CMP, PTT, PT/INR, and troponin. Diagnostic Findings Abdomen/Pelvis CT 08/23/23 12:[address] WITH IV CONTRAST CT DOSE: 1624.98 mGy.cm HISTORY: Weakness. GI bleed. Stomach cramping. TECHNIQUE: Multiaxial CT images of the abdomen and pelvis were performed following the use of intravenous contrast. A dose lowering technique was utilized adhering to the principles of ALARA. COMPARISON STUDY: Abdomen and pelvis CT 02/27/2020. FINDINGS: Mild dependent changes seen within the lung bases. No pneumoperitoneum. No pneumatosis. No acute fractures identified. Mild circumferential thickening of the distal esophagus. Cholelithiasis. No gallbladder wall thickening. The main portal vein is patent. The liver, spleen, adrenal glands, and pancreas are unremarkable. Bilateral nephrolithiasis. No ureteral stones. No hydronephrosis. Bilateral renal hypodense lesions are similar to the prior study and favor cysts. No retroperitoneal lymphadenopathy. Normal caliber abdominal aorta. No pelvic lymphadenopathy or pelvic free fluid. The prostate gland is mildly enlarged. The bladder is unremarkable. Colonic diverticulosis. No evidence for acute diverticulitis. Normal appendix. No dilated loops of bowel to suggest an obstruction. Fluid-filled nondistended colon. IMPRESSION: 1. Fluid-filled nondistended colon. This suggests a gastroenteritis/diarrheal illness. 2. No evidence for bowel obstruction. 3. Normal appendix. 4. Bilateral nephrolithiasis. No hydronephrosis. 5. Cholelithiasis. 6. Mild circumferential thickening of the distal esophagus. This favors a mild esophagitis. 7. Colonic diverticulosis. No evidence for acute diverticulitis. 8. Additional findings as described above. ACT 112: Negative or not required by law. Electronically signed by: Frank Castaneda M.D. 08/23/2023 1:39 PM Chest X-Ray 08/23/23 12:32 XR chest 1V portable CLINICAL HISTORY: vomiting TECHNIQUE: Single frontal radiograph of the chest was obtained. Comparison: Comparison is made to chest radiograph 04/29/2020 FINDINGS: No lines and tubes are seen. The cardiomediastinal silhouette is normal. The lungs are clear. No evidence of pleural effusion or pneumothorax. IMPRESSION: No acute chest disease. ACT 112: Negative or not required by law. Electronically signed by: Franco White M.D. 08/23/2023 1:10 PM Medications Administered Medication List Discontinued Medications Sodium Chloride (Nss) 1,000 mls @ 999 mls/hr IV .Q1H1M ONE Stop: 08/23/23 13:32 Last Admin: 08/23/23 12:51 Dose: 999 mls/hr Documented By: KADEEM Famotidine (Pepcid 20mg Iv Push) 20 mg in 5 mls @ 2.5 mls/min IV NOW STA Stop: 08/23/23 12:33 Last Admin: 08/23/23 13:00 Dose: 2.5 mls/min Documented By: KADEEM Ioversol (Optiray 320 500ml) 94 ml IV ONCE ONE Stop: 08/23/23 13:13 Last Admin: 08/23/23 13:13 Dose: 94 ml Documented By: DARCIE Ondansetron HCl (Ondansetron Inj 2 Mg/Ml 2 Ml Vial) 4 mg IV ONE STA Stop: 08/23/23 12:33 Last Admin: 08/23/23 13:00 Dose: 4 mg Documented By: KADEEM ECG Rate (beats per minute): 75 Rhythm: normal sinus Additional Comments: pvc now present EKG independently reviewed and interpreted by myself COVID-19 Results Results COVID-19 Adm Lab Results: RBC 3.55 M/uL (4.70-6.10) L 08/23/23 WBC 9.09 K/ul (4.8-10.8) 08/23/23 Hgb 10.8 g/dl (14.0-18.0) L 08/23/23 Hct 32.9 % (42.0-52.0) L 08/23/23 Plt Count 287 K/uL (130-400) 08/23/23 Neutrophils (%) (Auto) 79.4 % 08/23/23 Lymphocytes (%) (Auto) 13.8 % 08/23/23 Monocytes # (Auto) 0.51 K/uL (0.11-0.59) 08/23/23 Eosinophils # (Auto) 0.00 K/uL (0.00-0.50) 08/23/23 Immature Granulocyte % (Auto) 0.8 % 08/23/23 Neutrophils # (Auto) 7.22 K/uL (1.40-6.50) H 08/23/23 Lymphocytes # (Auto) 1.25 K/uL (1.20-3.40) 08/23/23 Monocytes # (Auto) 0.51 K/uL (0.11-0.59) 08/23/23 Eosinophils # (Auto) 0.00 K/uL (0.00-0.50) 08/23/23 Basophils # (Auto) 0.04 K/uL (0.00-0.20) 08/23/23 Immature Granulocyte # (Auto) 0.07 K/uL (0.01-0.20) 4 Na 135 mmol/L (136-145) L 08/23/23 K 4.1 mmol/L (3.5-5.1) 08/23/23 Cl 105 mmol/L (98-107) 08/23/23 CO2 23 mmol/L (21-32) 08/23/23 Anion Gap 7 (3-11) 08/23/23 BUN 53 mg/dl (6-23) H 08/23/23 Creatinine 0.99 mg/dl (0.6-1.4) 08/23/23 BUN/Creatinine Ratio 53.5 (10-20) H 08/23/23 Glucose Level 179 mg/dl (70-99(Fasting)) H 08/23/23 Ca 8.6 mg/dl (8.6-10.3) 08/23/23 Total Bilirubin 0.6 mg/dl (0.2-1.0) 08/23/23 AST/SGOT 11 U/L (13-39) L 08/23/23 ALT/SGPT 14 U/L (7-52) 08/23/23 Alkaline Phosphatase 42 U/L (34-104) 08/23/23 Total Protein 5.8 gm/dl (6.0-8.3) L 08/23/23 Albumin 3.4 gm/dl (3.4-5.0) 08/23/23 Globulin 2.4 gm/dl (2.5-4.0) L 08/23/23 Albumin/Globulin Ratio 1.4 (0.9-2) 08/23/23 PTT 24 Seconds (21-31) 08/23/23 INR 1.1 (0.9-1.1) 08/23/23 Chest X-Ray 08/23/23 Code Status & VTE Plan Code Status FULL CODE VTE Prophylaxis Plan VTE Prophylaxis will be ordered: No Reason for no VTE drug order: Contraindicated Supervising Physician Co-Signing Physician Notes I have seen and discussed the case with the collaborating MCKENZIE. I agree with the above H&P. I have reviewed and confirmed the patients medical history, the findings on physical examination, and the patients diagnosis and treatment plan with Sunny RINCON and agree with the information documented. In short, Mr. Brasher is a 63 year old gentleman with history of hypertension and iron deficiency anemia presented after 3 days GI illness, now with melena and hemetaemesis. Patient reports taking ibuprofen multiple times daily for "months" due to headache from "staring at his computer all day." Denies any postprandial symptoms or reflux. Denies fevers, chills. Last Hgb 16 in 06/2023. Denies allergy to protonix or known history of allergic reaction to medication. Labs notable for hgb 10. CT imaging with fluid filled bowel and thickening of esophagus c/w esophagitis Physical Exam General: Pleasant gentleman, no distress, dried blood on toes/face CV:regular, no murmur appreciated Resp: CTABL GI: soft NTND, BS+ MSK: moving all extremities equally A/P Mr. Brasher is presenting with concerns for acute anemia with suspected UGIB. Risk factors include longstanding history of esophagitis (scope 2019) as well as recent, near daily use ibuprofen. Hgb from 16 to 10 on admission, with dried blood noted on exam from episode of hematemesis. #Acute blood loss anemia, c/f UGIB -Protonix 40mg BID -NPO -GI on consult -Trend H/H q 6 hours, transfuse for symptomatic anemia or hgb < 7.0 #HTN Hold bp medications iso NPO and c/f blood loss/hemodynamic instability, resume as able Rest of plan as above
[2023-08-23] MEDS ORDERED: PANTOprazole 40 MG in SYRINGE 0 ML IV ONE (14:45)
--- OUTSIDE RECORDS SUMMARY | 2023-08-23 16:19 | External Medical Summary | Summary of Care ---
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 Patient denied any new concerns. Medication Administration 07/06/2023 Flu an d/or Pneumo Inj Immunizations 07/06/2023 Immunization RSV Vaccine 07/06/2023 Encounter Details Date Type Department Care Team (Latest Contact Info) Description 07/06/2023 12:40 PM EST Office Visit General Internal Medicine [place] [address] [place] [address] [address] [id number] Jose Alfredo Meyers MD [address] [place] [address] [id number] Physical exam, annual*; Prediabetes; Hypertension goal BP (blood pressure) < 140/90; Kidney cysts; Recurrent major depressive disorder, in partial remission (HCC); Iron deficiency anemia, unspecified iron deficiency anemia type; Mild aortic regurgitation; Aortic root dilatation (HCC); Screening for prostate cancer; Need for prophylactic vaccination and inoculation against influenza; Need for RSV vaccination; Need for asxacnluxx-velpelx-dooc ussis (Tdap) vaccine; Mixed hyperlipidemia Allergies Active Allergy Reactions Criticality Noted Date Comments Pantoprazole High 04/30/2020 Swelling lips ,mouth per pt documented as of this encounter (statuses as of 07/07/2023) Medications Medication Sig Dispensed Refills Start Date End Date Status Iron-Vitamin C 100-250 MG Oral Tablet Take 1 Tab by mouth 2 times a day. 1 Tab 0 10/28/2020 Active Losartan Potassium 100 MG Oral Tablet (Cozaar)Indicatio ns:Hypertension goal BP (blood pressure) < 140/90 Take 1 Tablet by mouth in the morning. 90 Tablet 0 03/07/2023 Active amLODIPine Besylate 5 MG Oral Tablet (Norvasc) Take 1 Tablet by mouth in the morning. 90 Tablet 3 03/16/2023 Active Escitalopram Oxalate 20 MG Oral Tablet (Lexapro)Indicati ons:Anxiety TAKE 1 TABLET BY MOUTH EVERY DAY 90 Tablet 3 05/11/2023 Active Potassium Chloride Shelli ER 10 MEQ Oral Tablet Extended Release (Klor-Con M10)Indications:H ypokalemia TAKE 4 TABLETS BY MOUTH EVERY DAY Strength: 10 mEq 360 Tablet 1 03/28/2023 07/06/2023 Discontinued documented as of this encounter (statuses as of 07/07/2023) Active Problems Problem Noted Date Diagnosed Date History of sepsis 03/29/2022 Overview: History of strep History of osteomyelitis 03/29/2022 Overview: C/t spine 2019 Diastolic dysfunction 04/27/2021 Mild aortic regurgitation 04/27/2021 History of 2019 novel coronavirus disease (COVID -19) 10/13/2020 Aortic root dilatation 10/13/2020 Esophagitis 05/15/2020 Premature ventricular contractions (PVCs) (VPCs) 05/07/2020 DISH (diffuse idiopathic skeletal hyperostosis) 04/17/2020 Iron deficiency anemia 04/08/2020 Prediabetes 03/21/2018 Overview: Per Prediabetes protocol #1 - Recurrent major depressive disorder, in partial remission 01/18/2017 Rhinitis, nonallergic 09/19/2014 Hypertension goal BP (blood pressure) < 140/90 Anxiety documented as of this encounter (statuses as of 07/07/2023) Resolved Problems Problem Noted Date Diagnosed Date Resolved Date Acute osteomyelitis of cervical spine 03/12/2022 03/12/2022 Neck pain 05/26/2020 03/29/2022 GBS (group B streptococcus) infection 05/15/2020 05/15/2020 Infection due to Streptococcus gallolyticus 05/09/2020 03/29/2022 Dysphagia 05/09/2020 05/13/2020 Abscess in epidural space of spine 05/07/2020 03/29/2022 ANNE (acute kidney injury) 05/07/2020 Severe sepsis with acute organ dysfunction 05/07/2020 05/08/2020 Hypokalemia 05/07/2020 07/06/2023 Streptococcal bacteremia 05/07/202001/2020 Chronic cough 09/19/2014 02/05/2019 Overview: since 05/2014 Retinal tear 08/13/2013 02/05/2019 Overview: 2013 Anemia 09/11/2012 03/29/2022 documented as of this encounter (statuses as of 07/07/2023) Immunizations Name Administration Dates Next Due RSV Vac., Bivalent, Perfusio n F, Pf,0.5 Ml (Abrysvo) 07/06/2023 SEASONAL INFLUENZA, PF, 6 M & Above, IM , (FLULAVAL or FLUZONE) 07/06/2023,05/26/2022,04/22/2021,2019,05/03/2019,05/01/2018 Seasonal Influenza, Quadriva lent, No Preserve, IM 05/01/2015 Seasonal Influenza, Split, I IV3, With Preserve, Inj 08/13/2013 TDAP (age 10 and older)(Boostrix) 07/06/2023, Zoster Vaccine Recombinant (Shingrix) 03/31/2018 ,01/26/2018 documented as of this encounter Social History Tobacco Use Types Packs/Day Years Used Date Smoking Tobacco: Never Smokeless Tobacco: Never Tobacco Cessation:Counseling Given: Not Answered Comments:no passive smoke Alcohol Use Standard Drinks/Week Comments No 0 (1 standard drink = 0.6 oz pur e alcohol) PHQ-2 Answer Date Recorded PHQ Adult Total Score 0 07/06/2023 Hunger Vital Sign Answer Date Recorded Worried About Running Out of Food in the Last Ye ar Never true 03/05/2020 Ran Out of Food in the Last Year Never true 03/05/2020 Sex and Gender Information Value Date Recorded Sex Assigned at Male 02/05/2019 12:35 PM EDT Gender Identity Male 02/05/2019 12:35 PM EDT Sexual Orientation Straight 02/05/2019 12 :35 PM EDT Job Start Date Occupation Industry Not on file Not on file Not on file documented as of this encounter Last Filed Vital Signs Vital Sign Reading Time Taken Comments Blood Pressure 136/72 07/06/2023 12:40 PM EST Pulse 77 07/06/2023 12:40 PM EST Temperature 35.6 C (96.1 F) 07/06/2023 12:[address] Respiratory Rate - - Oxygen Saturation 96% 07/06/2023 12:40 PM EST Inhaled Oxygen Concentration - - Weight 116 kg (255 lb 12.8 oz) 07/06/2023 12:40 PM EST Height 182.9 cm (6') 07/06/2023 12:40 PM EST Body Mass Index 34.69 07/06/2023 12:40 PM EST documented in this encounter Functional Status Functional Status Response Date of Assess ment Are you deaf or do you have serious difficulty h earing? No 05/06/2020 Are you blind or do you have serious difficulty seeing, even when wearing glasses? No 05/06/2020 Do you have serious difficul ty walking or climbing stairs? (5 years old or older) No 05/06/2020 Do you have difficulty dress ing or bathing? (5 years old or older) No 05/06/2020 Because of a physical, menta l, or emotional condition, do you have difficulty doing errands alone such as visiting a doctor s office or shopping? (15 years old or older) No 05/06/20 20 Cognitive Status Response Date of Assessm ent Because of a physical, menta l, or emotional condition, do you have serious difficulty concentrating, remembering, or making decisions? (5 years old or older) No 05/06/2020 documented as of this encounter Patient Instructions * Patient Instructions* Jessica Walker LPN - 07/06/2023 12:39 PM EST ~~PATIENT INSTRUCTIONS FOR Td VACCINE~~ Possible side effects of Td vaccine, (tetanus shot), are usually mild and can include: 1. Soreness or redness at injection site 2. Low grade fever 3. Body aches You may use a fever / pain reducing medication as needed for these symptoms. LET YOUR DOCTOR KNOW IMMEDIATELY IF YOU HAVE DIFFICULTY BREATHING OR SWALLOWING, EXPERIENCE ITCHINGOF FEET OR HANDS, HAVE SWELLING OF EYES, FACE OR INSIDE OF NOSE. Possible side effects of RSV vaccine, (Respiratory Syncytial Virus), are usually mild and can include: Soreness, swelling or redness at injection site Low grade fever Body aches or joint pain Headache Nausea or diarrhea You may use a fever/pain reducing medication for these symptoms. LET YOUR DOCTOR KNOW IMMEDIATELY IF YOU HAVE DIFFICULTY BREATHING OR SWALLOWING, EXPERIENCE ITCHINGOF FEET OR HANDS, HAVE SWELLING OF EYES, FACE OR INSIDE OF NOSE. documented in this encounter Progress Notes * Jessica Walker LPN - 07/06/2023 1:15 PM EST Does the patient have an illness today with a fever more than 101F? No Has the patient ever had a serious allergic reaction after receiving a vaccination? No Does the patient have Medicare Part D? No Verified patient has prescription/drug coverage. Patient has been informed that [place] co-pays are close to $0. In most cases co-pays will be around $10. The maximum co-pay patients may get could be as high as $200 not applicable. RSV Vaccine Information Sheet has been provided. Jessica Walker LPN 07/06/2023 1:15 PM IMMUNIZATION ADMINISTRATION DOCUMENTATION Time Out Procedure Performed: Yes Patient Identified (Ask Name/Date of ): Yes Patient allergic to latex?No VFC Stock? No Immunization(s) verified: Yes, Immunization Name: Abrysvo (RSV), VIS Sheet(s) given: Yes Verified Side and Site: Yes Verified Shot(s) with Parent(s)/Patient: Yes RSV was administered per clinic protocol. Patient received the RSV VIS (Vaccine Information Sheet). Jessica Walker LPN, 07/06/2023, 1:15 PM * Jose Alfredo Meyers MD - 07/06/2023 1:05 PM EST Chief Complaint Patient presents with Follow Up 6 month follow up. Patient denied any new concerns. Medication Administration Flu and/or Pneumo Inj Immunizations SUBJECTIVE: Henry Brasher is a 63 year old male with PMH as below who presents for physical. Feels great! 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 He is taking iron fine. Otherwise, Patient has no complaints, denies cp, sob, n/v/d, palpitations, edema, PND, urinary problems, bowel issues, no blood in stool or urine. Eating and drinking without issue, feels safe, denies abuse or feelings of depression, wears seatbelts. No SI, HI Patient Active Problem List Diagnosis Code Hypertension goal BP (blood pressure) < 140/90 I10 Anxiety F41.9 Rhinitis, nonallergic J31.0 Recurrent major depressive disorder, in partial remission (HCC) F33.41 Prediabetes R73.03 Iron deficiency anemia D50.9 DISH (diffuse idiopathic skeletal hyperostosis) M48.10 Premature ventricular contractions (PVCs) (VPCs) I49.3 Esophagitis K20.90 History of 2019 novel coronavirus disease (COVID-19) Z86.16 Aortic root dilatation (HCC) I77.810 Diastolic dysfunction I51.89 Mild aortic regurgitation I35.1 History of sepsis Z86.19 History of osteomyelitis Z87.39 Current Outpatient Medications Medication Sig Dispense Refill Iron-Vitamin C 100-250 MG Oral Tablet Take 1 Tab by mouth 2 times a day. 1 Tab Losartan Potassium 100 MG Oral Tablet (Cozaar) Take 1 Tablet by mouth in the morning. 90 Tablet 0 amLODIPine Besylate 5 MG Oral Tablet (Norvasc) Take 1 Tablet by mouth in the morning. 90 Tablet 3 Escitalopram Oxalate 20 MG Oral Tablet (Lexapro) TAKE 1 TABLET BY MOUTH EVERY DAY 90 Tablet 3 No current facility-administered medications for this visit. Review of patient's allergies indicates: Allergen Reactions Protonix [Pantoprazole] Swelling lips ,mouth per pt Health Maintenance Due Topic Date Due COVID-19 Vaccine (1) Never done Depression Screening 04/30/2021 HbA1c 04/09/2023 ROS: CONSTITUTIONAL: No change in weight, No weakness, and No fevers, sweats, or chills EYE: No recent significant change in vision, No eye pain, redness, discharge, and No diplopia EARS: No ear pain, No drainage, No tinnitus or vertigo, and No recent change in hearing NOSE: No history of frequent colds or sinusitis, No nasal stuffiness, No history of Hay Fever, and No significant epistaxis PULMONARY: No cough, sputum, or hemoptysis, No wheezing, No rales, No shortness of breath, and No recent change in breathing CARDIOVASCULAR: No chest pain, No shortness of breath, No dyspnea on exertion, No orthopnea, No paroxysmal nocturnal dyspnea, No edema, No palpitations, and No syncope GASTROINTESTINAL: No abdominal pain, No change in bowel habits, No significant heartburn, No significant change in appetite, No nausea, vomiting, diarrhea, or constipation, No hematemesis, No blood in stools or black tarry stools, No abdominal bloating or early satiety, and No dysphagia EXTREMITIES: No pain, redness or swelling on the joints ALL OTHER SYSTEMS NEGATIVE I reviewed social, PMH, PSH, and family history and updated where needed. Social History Socioeconomic History Marital status: Spouse name: Not on file Number of children: 3 Years of education: Not on file Highest education level: Not on file Occupational History Occupation: [employer] Tobacco Use Smoking status: Never Smokeless tobacco: Never Tobacco comments: no passive smoke Vaping Use Vaping Use: Never used Substance and Sexual Activity Alcohol use: No Drug use: No Sexual activity: Not Currently Other Topics Concern Not on file Social History Narrative Not on file Social Determinants of Health Financial Resource Strain: Not on file Food Insecurity: No Food Insecurity (03/05/2020) Hunger Vital Sign Worried About Running Out of Food in the Last Year: Never true Ran Out of Food in the Last Year: Never true Transportation Needs: Not on file Physical Activity: Not on file Stress: Not on file Social Connections: Not on file Intimate Partner Violence: Not on file Housing Stability: Not on file Past Medical History: Diagnosis Date Abscess in epidural space of spine 05/07/2020 Anemia 09/11/2012 Anxiety Chronic cough 09/19/2014 since 05/2014 Diastolic dysfunction 04/27/2021 DISH (diffuse idiopathic skeletal hyperostosis) 04/17/2020 Esophagitis 05/15/2020 History of 2019 novel coronavirus disease (COVID-19) 10/13/2020 Hypertension goal BP (blood pressure) < 140/90 Infection due to Streptococcus gallolyticus 05/09/2020 Mild aortic regurgitation 04/27/2021 Retinal tear 08/13/20132012 Past Surgical History: Procedure Laterality Date COLONOSCOPY, DIAGNOSTIC (RECTUM) 03/30/2013 COLONOSCOPY FLEXIBLE PROXIMAL DIAGNOSTIC performed by Adan Velasco MD at ENDOSCOPY [facility] COLONOSCOPY, DIAGNOSTIC (RECTUM) 02/28/2020 diverticulosis / [facility] COLONOSCOPY, DIAGNOSTIC (RECTUM) 02/28/2020 diverticulosis / [facility] EGD, FLEXIBLE, DIAGNOSTIC 03/30/2013 path showed mild inflammation from acid reflux , neg for H pylori and neg for celiac EGD, FLEXIBLE, DIAGNOSTIC 02/28/2020 reflux esophagitis, eso nodule, duodenal diverticulum / [facility] EGD, W/ENDOSCOPIC US 04/07/2020 Extrinsic compression / ESOPHAGOGASTRODUODENOSCOPY (EGD), FLEXIBLE, TRANSORAL, ENDOSCOPIC ULTRASOUND performed by Damion Suarez MD at ENDOSCOPY [facility] EXPLORATORY ELBOW SURGERY 08/08/2013 I&D POST CERV/THORACIC SPINE,DEEP ABSCESS N/A 05/08/2020 INCISION DRAINAGE DEEP ABSCESS POSTERIOR CERVICAL THORACICSPINE performed by Tyler Babin MD at OR [facility] MISCELLANEOUS ORDER ([facility] ONLY) 08/08/2004 l4/l5 disc surgery REMOVE CATARACT, INSERT LENS PROSTH Left 05/24/2019 left EXTRACAPSULAR CATARACT REMOVAL WITH INTRAOCULAR LENS performed by Ino Fountani MD at [facility] REMOVE CATARACT, INSERT LENS PROSTH Right 05/31/2019 right EXTRACAPSULAR CATARACT REMOVAL WITH INTRAOCULAR LENS performed by Ino Fountain MD at [facility] REPAIR DETACHED RETINA, VITRECTOMY 06/08/2013 REPAIR OF TEAR REVISION OF ULNAR NERVE AT ELBOW Right 09/24/2022 NEUROPLASTY AND OR TRANSPOSITION ULNAR NERVE ELBOW performed by Je Domínguez DO at OR [facility] Family History Problem Relation Age of Onset Diabetes Brother Diabetes Brother Diabetes Sister Diabetes Mother Hypertension Mother Diabetes Father Hypertension Father Hypertension Sister Heart Disorder Brother OBJECTIVE: PHYSICAL EXAM: BP 136/72 | Pulse 77 | Temp 35.6 C (96.1 F) | Ht 1.829 m (6') | Wt 116 kg (255 lb 12.8 oz) | SpO2 96% | BMI 34.69 kg/m | BSA 2.43 m General: alert, healthy, and no distress Head: Normocephalic, No masses, lesions, tenderness or abnormalities, then dried blood right cheek near ear (reports cut self shaving) Eye Exam: conjunctiva are pink and non-injected, sclera clear Ears: External ears normal, Canals clear, TM's Normal Oropharynx: no exudate, no erythema, lips, buccal mucosa, and tongue normal, and mucous membranes are moist Heart: regular rate & rhythm, no murmur, no gallops, PMI non-displaced, S-1 normal, and S-2 normal Lungs: normal respiratory rate and rhythm, lungs clear to auscultation Abdomen: abdomen soft, non-tender, obese, normal bowel sounds, and no masses or organomegaly Extremities: no edema, no clubbing, no cyanosis Neuro Exam: alert with fluent speech, gait normal ASSESSMENT: Z00.00 Physical exam, annual (primary encounter diagnosis) R73.03 Prediabetes I10 Hypertension goal BP (blood pressure) < 140/90 N28.1 Kidney cysts F33.41 Recurrent major depressive disorder, in partial remission (HCC) D50.9 Iron deficiency anemia, unspecified iron deficiency anemia type I35.1 Mild aortic regurgitation I77.810 Aortic root dilatation (HCC) Z12.5 Screening for prostate cancer Z23 Need for prophylactic vaccination and inoculation against influenza Z29.11 Need for RSV vaccination Z23 Need for cxisqhncvi-ftibjqc-yvryuepsp (Tdap) vaccine PLAN: Physical exam, annual (Primary) Tdap, flu and rsv today Check labs as below Discussed seatbelts, skin and other hm C-scope done 2019 Prediabetes - HEMOGLOBIN A1C; Future; Expected date: 07/06/2023 Recheck Hypertension goal BP (blood pressure) < 140/90 - COMPREHENSIVE METABOLIC PANEL; Future; Expected date: 07/06/2023 - LIPID PANEL WITH DIRECT LDL IF TG IS HIGH; Future; Expected date: 07/06/2023 - TSH; Future; Expected date: 07/06/2023 Cont amlodipine, losartan Kidney cysts - US RENAL; Future; Expected date: 07/06/2023 Recheck Recurrent major depressive disorder, in partial remission (HCC) Cont escitalopram Iron deficiency anemia, unspecified iron deficiency anemia type - CBC WITH WBC DIFFERENTIAL; Future; Expected date: 07/06/2023 - IRON SCREEN, INCLUDING TIBC; Future; Expected date: 07/06/2023 - FERRITIN; Future; Expected date: 07/06/2023 On iron Follow counts Mild aortic regurgitation Await echo Aortic root dilatation (HCC) Await echo Screening for prostate cancer - PSA; Future; Expected date: 07/06/2023 Need for prophylactic vaccination and inoculation against influenza - INFLUENZA VACC, QUAD, PF, 6 MONTHS & UP, 0.5 ML, IM Need for RSV vaccination - RSV VAC., BIVALENT, PERFUSION F, PF,0.5 ML (ABRYSVO) Need for rmlvbvnobd-qsiqdsr-lafmhoduq (Tdap) vaccine - TDAP (AGE 10 AND OLDER)(BOOSTRIX) Follow Up: Return in about 1 year (around 07/06/2024), or if symptoms worsen or fail to improve, for Labs Today. | For: Labs Today Jose Alfredo Meyers MD * Jose Luis Jaffe CMA - 07/06/2023 12:38 PM EST PRE - ADMINISTRATION DOCUMENTATION Are you experiencing any cold symptoms or fever? No Have you had Guillain-[place] Syndrome (an illness that causes paralysis) within the last 6 weeks? No Have you had the flu shot in the past? YES Have you ever had a reaction to the flu shot? No Jose Luis Jaffe CMA, 07/06/2023 12:38 PM Immunization Administration Documentation Time Out Procedure Performed: Yes Patient Identified (Ask Name/Date of ): Yes Does the patient have a fever greater than 101 degrees today? No Patient allergic to latex? No VFC Stock: Yes, Does this patient qualify for immunization through the VFC program because he/she (check only one): No-this child does not qualify for VFC program; refer patient to a [facility] Immunization(s) verified: Yes, Immunization Name: Flu and Tdap (Boostrix), VIS Sheet(s) given: Yes Verified Side and Site: Yes Verified Shot(s) with Parent(s)/Patient: Yes documented in this encounter Nursing Notes * Jose Luis Jaffe CMA - 07/06/2023 12:39 PM EST Chief Complaint Patient presents with Follow Up 6 month follow up. Patient denied any new concerns. Medication Administration Flu and/or Pneumo Inj Immunizations documented in this encounter Miscellaneous Notes * Addendum Note - Jose Alfredo Meyers MD - 07/07/2023 8:24 AM ESTAddended by: JOSE ALFREDO MEYERS on: 07/07/2023 08:24 AM Modules accepted: Orders documented in this encounter Plan of Treatment Upcoming Encounters Date Type Department Care Team (Late st Contact Info) Description 07/14/2023 10:15 AM EST Imaging Radiology [address] [place] [id number] 07/25/2023 7:15 AM EST [facility] [place] [address] [place] [address] 07/06/2024 8:40 AM EST Office Visit General Internal Medicine [address] [place] [address] [place] [address] Jose Alfredo Meyers MD [address] [facility] [address] [facility] [place] [address] Scheduled Orders Name Type Priority Associated Diagnoses Orde r Schedule US RENAL Medical Imaging Routine Kidney cysts Expected: 07/06/2023, Expires: 08/05/2024 LIPID PANEL WITH DIRECT LDL IF TG IS HIGH Lab Routine Mixed hyperlipidemia Expected: 08/06/2023, Expires: 07/07/2024 HEPATIC FUNCTION PANEL Lab Routine Mixed hyperlipidemia Expected: 08/06/2023 (Approximate), Expires: 07/07/2024 Health Maintenance Due Date Last Done Comments COVID-19 Vaccine (#1) 1962 Cologuard 2007 Fecal Occult Blood Test 2007 Sigmoidoscopy 2007 Depression Screening 07/06/2024 07/06/2023 GFR 07/06/2024 07/06/2023, 04/2 12/2022, 09/16/2022, Additional history exists HbA1c 07/06/2024 07/06/2023, 09/0 09/2021, 11/04/2021, Additional history exists Albumin/Creatinine Ratio 04/09/2025 04/09/2022, 01/06 Lipid Panel 07/06/2028 07/06/2023, 09/0 09/2021, 10/27/2020, Additional history exists Colonoscopy 02/27/2030 02/28/2020, 082 10/2012, 03/30/2013 Colorectal Cancer Screening 02/27/2030 DTaP,Tdap,and Td Vaccines (3 - Td or Tdap) 07/06/2033 07/06/2023, 03/21/2013 Zoster Vaccines Completed 03/31/2018, 01/26/2018 Influenza Vaccine (FLU shot) Completed , 05/26/2022, 04/22/2021, Additional history exists GARDASIL-HPV IMMUNIZATION SERIES Aged Out No longer eligible based on patient's age to complete this topic Hepatitis B Aged Out No longer eligi ble based on patient's age to complete this topic MENINGOCOCCAL (MENACTRA/MENVEO) Aged Out No longer eligible based on patient's age to complete this topic Pneumococcal Vaccine: Pediatrics (0 to 5 Years) and At-Risk Patients (6 to 64 Years) Aged Out No longer eligible based on patient's age to complete this topic documented as of this encounter Medical Devices Implanted Type Area Peer Health Promoter Device Identifier Shelf Expiration Date Model / Serial / Lot Envista [id number] Implanted:Qty: 1 on 05/24/2019 by Ino Fountain MD at OR [facility] Left: Eye [employer] 11/05/2021 [id number] / [id number] / [id number] Implanted:Qty: 1 on 05/31/2019 by Ino Fountain MD at OR [facility] Right: Eye 11/05/2021 [id number] / [id number] / [id number] documented as of this encounter Results * TSH (07/06/2023 1:46 PM EST) [facility] TSH 0.52 0.27 - 4.20 uIU/mL 07/07/2023 1:14 AM EST LABORATORY [facility] Blood Venous blood specimen / Unknown Venipuncture / Unknown 07/06/2023 1:46 PM EST 07/06/2023 1:46 PM EST Jose Alfredo Meyers MD LAB BLOOD ORDERA BLES Performing Organization Address City/[facility]/ZIP Co de Phone Number LABORATORY [facility] [address] [place] [address] * PSA (07/06/2023 1:46 PM EST) [facility] PSA 2.75 <4.10 ng/mL 07/07/2023 12:41 AM EST LABORATORY [facility] Blood Venous blood specimen / Unknown Venipuncture / Unknown 07/06/2023 1:46 PM EST 07/06/2023 1:46 PM EST Jose Alfredo Meyers MD LAB BLOOD ORDERA BLES Performing Organization Address City/[facility]/ZIP Co de Phone Number LABORATORY [facility] [address] [place] [address] * (ABNORMAL) HEMOGLOBIN A1C (07/06/2023 1:46 PM EST) [facility] Hemoglobin A1C 5.7(H) 4.0 - 5.6 % 07/07/2023 12:42 AM EST LABORATORY [facility] Comment:The use of HbA1c to monitor glycemic status is based on normal hemoglobin and HbA composition. This test should not be used in patients with abnormal hemoglobin that affects the half life of the red blood cell or the in vivo glycation rates. Estimated Average Glucose 117 <126 mg/dL 07/07/2023 12:42 AM EST LABORATORY [facility] Blood Venous blood specimen / Unknown Venipuncture / Unknown 07/06/2023 1:46 PM EST 07/06/2023 1:46 PM EST Jose Alfredo Meyers MD LAB BLOOD ORDERA BLES Performing Organization Address City/[facility]/ZIP Co de Phone Number [facility] [address] [place] [address] * FERRITIN (07/06/2023 1:46 PM EST) Ferritin 92 30 - 400 ng/mL 07/07/2023 1:14 AM EST [facility] Blood Venous blood specimen / Unknown Venipuncture / Unknown 07/06/2023 1:46 PM EST 07/06/2023 1:46 PM EST Jose Alfredo Meyers MD LAB BLOOD ORDERA BLES Performing Organization Address [facility] Co de Phone Number [facility] [address] [place] [address] * IRON SCREEN, INCLUDING TIBC (07/06/2023 1:46 PM EST) Iron 78 45 - 176 ug/dL 07/07/2023 12:31 AM EST [facility] Iron Binding Capacity 349 250 - 425 ug/dL 07/07/2023 12:31 AM EST [facility] Transferrin Saturation Percent 22 15 - 55 % 07/07/2023 12:31 AM EST [facility] Blood Venous blood specimen / Unknown Venipuncture / Unknown 07/06/2023 1:46 PM EST 07/06/2023 1:46 PM EST Jose Alfredo Meyers MD LAB BLOOD ORDERA BLES Performing Organization Address [facility]/ZIP Co de Phone Number [facility] [address] [place] [address] * LIPID PANEL WITH DIRECT LDL IF TG IS HIGH (07/06/2023 1:46 PM EST) Triglycerides 97 <=174 mg/dL 07/07/2023 12:31 AM EST LABORATORY [facility] Comment: Triglyceride Reference Ranges (mg/dL): <150 Acceptable 150-174 Borderline high 175-499 High >=500 Very high Cholesterol 169 <200 mg/dL 07/07/2023 12:31 AM EST LABORATORY [facility] Comment: Total Cholesterol Reference Ranges (mg/dL): <200 Desirable 200-239 Borderline high >=240 High HDL Cholesterol 48 >39 mg/dL 12:31 AM EST LABORATORY [facility] Comment: HDL Cholesterol Reference Ranges (mg/dL): >=60 High (Desirable) <50 Low (Undesirable) For Females <40 Low (Undesirable) For Males Non-HDL Cholesterol 121 <=159 mg/dL 07/07/2023 12:31 AM EST LABORATORY [facility] Comment: Non-HDL Cholesterol Reference Range (mg/dL): <100 Target level for high risk ASCVD patient <130 Optimal for general population 130-159 Near optimal for general population 160-189 Borderline High 190-219 High >=220 Very High LDL Cholesterol 102 <=129 mg/dL 07/07/2023 12:31 AM EST LABORATORY [facility] Comment: LDL Cholesterol Reference Ranges (mg/dL): <70 Target level for high risk ASCVD patient <100 Optimal for general population 100-129 Near optimal for general population 130-159 Borderline high 160-189 High >=190 Very high Blood Venous blood specimen / Unknown Venipuncture / Unknown 07/06/2023 1:46 PM EST 07/06/2023 1:46 PM EST Jose Alfredo Meyers MD LAB BLOOD ORDERA BLES LABORATORY [facility] [address] [place] [address] * COMPREHENSIVE METABOLIC PANEL (07/06/2023 1:46 PM EST) BUN 15 6 - 20 mg/dL 07/06/2023 3:21 PM EST LABORATORY [place] 56-02 Creatinine 0.9 0.6 - 1.2 mg/dL 07/06/2023 3:21 PM [facility] 56- Estimated Glomerular Filtration Rate >90 >=60 mL/min 07/06/2023 3:21 PM [facility] 56- Comment:eGFR is calculated b ased on the CKD-EPI 2020 equation Sodium 138 135 - 146 mmol/L 07/06/2023 3:21 PM [facility] 56- Potassium 4.3 3.5 - 5.1 mmol/L 07/06/2023 3:21 PM [facility] 56- Chloride 104 98 - 107 mmol/L 07/06/2023 3:21 PM [facility] 56 CO2 25 22 - 32 mmol/L 07/06/2023 3:21 PM [facility] 56 Anion Gap 9 7 - 15 mmol/L 07/06/2023 3:21 PM [facility] 56 Glucose 89 70 - 120 mg/dL 07/06/2023 3:21 PM [facility] 56 Albumin 4.3 3.8 - 5.0 g/dL 07/06/2023 3:21 PM [facility] 56 AST 22 10 - 50 U/L 07/06/2023 3:21 PM [facility] 56 Alkaline Phosphatase 87 35 - 130 U/L 07/06/2023 3:21 PM [facility] 56 Bilirubin, Total 0.5 <=1.2 mg/dL 07/06/2023 3:21 PM [facility] 56 Calcium 9.7 8.4 - 10.2 mg/dL 07/06/2023 3:21 PM [facility] 56 Protein 7.0 6.0 - 8.3 g/dL 07/06/2023 3:21 PM [facility] 56- ALT 28 10 - 50 U/L 07/06/2023 3:21 PM [facility] 56- Blood Venous blood specimen / Unknown Venipuncture / Unknown 07/06/2023 1:46 PM EST 07/06/2023 1:46 PM EST Jose Alfredo Meyers MD LAB BLOOD ORDERA BLES [facility] 56- [address] [place] [address] documented in this encounter Visit Diagnoses Diagnosis Physical exam, annual- Primary Routine general medical examination at a health care facility Prediabetes Other abnormal glucose Hypertension goal BP (blood pressure) < 140/90 Unspecified essential hypertension Kidney cysts Unspecified congenital cystic kidney disease Recurrent major depressive disorder, in partial remission (HCC) Iron deficiency anemia, unspecified iron deficiency anemia type Mild aortic regurgitation Aortic valve disorders Aortic root dilatation (HCC) Thoracic aortic ectasia Screening for prostate cancer Special screening for malignant neoplasm of prostate Need for prophylactic vaccination and inoculation against influenza Need for RSV vaccination Need for prophylactic vaccination and inoculation against respiratory syncytial virus Need for bkrvepgopx-pojasoe-ntnmxmvan (Tdap) vaccine Need for prophylactic vaccination with combined gwdcxmmfoe-niqrawn-dpwiuhcph (DTP) vaccine Mixed hyperlipidemia documented in this encounter Advance Directives Latest Code Status on File Code Status Date Activated Date Inactivated Comments Full Code 05/06/2020 11:49 PM 05/13/2020 9:14 PM This order reflects the patients wishes and were consensually agreed upon. Question Answer Comments Discussion of Advance Directives occurred with: Patient Care Teams Racecourse Barrier Attendant Relationship Specialty Start Date End Date Jose Alfred[facility] Mey[facility] [address] [facility] [address] PCP - General Internal Medicine 09/11/12 documented as of this encounter"
--- OUTSIDE RECORDS SUMMARY | 2023-08-23 16:19 | External Medical Summary | Summary of Care ---
Author Name Unknown Organization [facility] Address [address] [place] [address] Phone [phone] Care Team Providers Care Senior Backup Administrator Name Role Phone Jose Alfredo Garber MD Primary Care Provider + Reason for Visit * Reason Comments eRx-Medication Refill Encounter Details Date Type Department Care Team (Late st Contact Info) Description 08/10/2023 Refill General Internal Medicine [facility] [address] [facility] [place] [address] Jose Alfredo Garber MD [address] [place] [address] Hypertension goal BP (blood pressure) < 140/90 Allergies Active Allergy Reactions Criticality Noted Date Comments Pantoprazole High 04/30/2020 Swelling lips ,mouth per pt documented as of this encounter (statuses as of 08/10/2023) Medications Medication Sig Dispensed Refills Start Date End Date Status Iron-Vitamin C 100-250 MG Oral Tablet Take 1 Tab by mouth 2 times a day. 1 Tab 0 10/28/2020 Active amLODIPine Besylate 5 MG Oral Tablet (Norvasc) Take 1 Tablet by mouth in the morning. 90 Tablet 3 03/16/2023 Active Escitalopram Oxalate 20 MG Oral Tablet (Lexapro)Indicati ons:Anxiety TAKE 1 TABLET BY MOUTH EVERY DAY 90 Tablet 3 05/11/2023 Active Losartan Potassium 100 MG Oral Tablet (Cozaar)Indicatio ns:Hypertension goal BP (blood pressure) < 140/90 TAKE 1 TABLET BY MOUTH EVERY DAY IN THE MORNING 90 Tablet 3 08/10/2023 Active Losartan Potassium 100 MG Oral Tablet (Cozaar)Indicatio ns:Hypertension goal BP (blood pressure) < 140/90 Take 1 Tablet by mouth in the morning. 90 Tablet 0 03/07/2023 08/10/2023 Discontinued documented as of this encounter (statuses as of 08/10/2023) Active Problems Problem Noted Date Diagnosed Date [...] as of this encounter (statuses as of 08/10/2023) Resolved Problems Problem Noted Date Diagnosed Date [...] since 05/2014 Retinal tear 08/13/2013 02/05/2019 Overview: 2012 Anemia 09/11/2012 03/29/2022 documented as of this encounter (statuses as of 08/10/2023) Immunizations Name Administration Dates Next Due RSV Vac., Bivalent, Perfusio n F, Pf,0.5 Ml (Abrysvo) 07/06/2023 Seasonal Influenza, PF, 6 M & above, IM , (FluLaval or Fluzone) 07/06/2023,05/26/2022,04/22/2021,2019,05/03/2019,05/01/2018 Seasonal Influenza, Quadriva lent, No Preserve, IM 05/01/2015 Seasonal Influenza, Split, I IV3, With Preserve, Inj 08/13/2013 TDAP (age 10 and older)(Boostrix) 07/06/2023, Zoster Vaccine Recombinant (Shingrix) 03/31/2018 ,01/26/2018 documented as of this encounter Social History Tobacco Use Types Packs/Day Years Used Date Smoking Tobacco: Never Smokeless Tobacco: Never Comments:no passive smoke Alcohol Use Standard Drinks/Week [...] on file documented as of this encounter Functional Status Functional Status Response [...] No 05/06/2020 documented as of this encounter Miscellaneous Notes * Telephone Encounter - Maurilio Woodard [facility] - 08/10/2023 9:03 AM ESTSigned Prescriptions: Disp Refills Losartan Potassium 100 MG Oral Tablet (Coz*90 Tab*3 Sig: TAKE 1 TABLET BY MOUTH EVERY DAY IN THE MORNING Authorizing Provider: JOSE ALFREDO GARBER Ordering User: MAURILIO WOODARD * Telephone Encounter - Brittany Doss CPhT - 08/10/2023 8:57 AM EST Pt has 2 days of medication left Did you pend patient's preferred pharmacy and medication before forwarding?yes Pharmacy: [id number] [address] [facility] Pending Prescriptions: Disp Refills Losartan Potassium 100 MG Oral Tablet (Co*90 Tab*0 Sig: TAKE 1 TABLET BY MOUTH EVERY DAY IN THE MORNING Last Visit: 07/06/2023 (in office), 03/12/2022 (telemedicine) Next Visit: 07/06/2024 If no future appointments scheduled, and last appointment is greater than a year ago, please schedule patient for a follow-up appointment Last date the medication was ordered: 03/07/23 Is this request for a controlled substance?No Urine Drug Screen:No results found for this or any previous visit. Patient Phone Numbers Labs: Lab Results Component Value Date/Time CREAT 0.9 07/06/2023 01:46 PM CREAT 0.9 06/17/2020 02:41 PM POTASSIUM 4.3 07/06/2023 01:46 PM POTASSIUM 4.3 06/17/2020 02:41 PM TSH 0.52 07/06/2023 01:46 PM TSH 0.12 (L) 05/07/2020 06:46 AM LDLCALC 102 07/06/2023 01:46 PM LDLCALC 86 03/05/2020 12:41 PM LDLDIRECT NOT APPLICABLE 03/05/2020 12:41 PM ALT 28 07/06/2023 01:46 PM ALT 9 (L) 06/17/2020 02:41 PM HGBA1C 5.7 (H) 07/06/2023 01:46 PM HGBA1C 5.5 03/05/2020 12:41 PM documented in this encounter Plan of Treatment Upcoming Encounters Date Type Department Care Team (Late st Contact Info) Description 07/06/2024 8:40 AM EST Office Visit General Internal Medicine [facility] [address] [place] [place] [address] Jose Alfredo Garber MD [address] [place] [address] Health Maintenance Due Date Last Done Comments COVID-19 Vaccine (#1) 1962 Cologuard 2007 Fecal Occult Blood Test 2007 Sigmoidoscopy 2007 Depression Screening 07/06/2024 07/06/2023 GFR 07/06/2024 07/06/2023, 04/2 12/2022, 09/16/2022, Additional history exists HbA1c 07/06/2024 07/06/2023, 0 09/2021, 11/04/2021, Additional history exists Albumin/Creatinine Ratio 04/09/2025 04/09/2022, 01/06 Lipid Panel 07/06/2028 07/06/2023, 0909/2021, 10/27/2020, Additional history exists Colonoscopy 02/27/2030 02/28/2020, 03/09, 03/30/2013 Colorectal Cancer Screening 02/27/2030 DTaP,Tdap,and Td [...] this encounter Medical Devices Implanted Type Area Editor Newspaper Device Identifier Shelf Expiration Date Model / Serial / Lot Envista [id number] Implanted:Qty: 1 on 05/24/2019 by Ino Fountain MD at OR [facility] Left: Eye [employer] 11/05/2021 [id number] / [id number] / [id number] Implanted:Qty: 1 on 05/31/2019 by Ino Fountain MD at OR [facility] Right: Eye 11/05/2021 [id number] / [id number] / [id number] documented as of this encounter Visit Diagnoses Diagnosis Hypertension goal BP (blood pressure) < 140/90 Unspecified essential hypertension documented in this encounter Advance Directives Latest Code Status on File Code Status Date Activated Date Inactivated Comments Full Code 05/06/2020 11:49 PM 05/13/2020 9:14 PM This order reflects the patients wishes and were consensually agreed upon. Question Answer Comments Discussion of Advance Directives occurred with: Patient Care Teams Senior Backup Administrator Relationship Specialty Start Date End Date Jose Alfredo Garber MD [address] [place] [address] [place] [address] PCP - General Internal Medicine 09/11/12 documented as of this encounter
--- OUTSIDE RECORDS SUMMARY | 2023-08-23 16:19 | External Medical Summary ---
Author Name Unknown Address Unknown Organization [id number]:[facility] [place] [address] [address] Laboratory Report Ordering Provider Test Date Status SHIRLENE CALLE 07/06/2023 13:46:15 Final Observation Date Value Abnormality Reference (Units ) Status WBC, Total 07/06/2023 13:46:15 7.58 4.00-10.8 0 (K/uL) Final RBC 07/06/2023 13:46:15 5.01 4.50-5.25 (M/uL) Final Hemoglobin 07/06/2023 13:46:15 15.1 14.0-16.8 (g/dL) Final HCT 07/06/2023 13:46:15 46.0 40.0-48.4 (%) Final MCV 07/06/2023 13:46:15 91.8 82.0-99.5 (fL) Final MCH 07/06/2023 13:46:15 30.1 27.0-34.0 (pg) Final MCHC 07/06/2023 13:46:15 32.8 32.0-36.0 (g/dL) Final RDW 07/06/2023 13:46:15 12.8 11.5-15.5 (%) Final Platelets 07/06/2023 13:46:15 268 140-400 (K /uL) Final MPV 07/06/2023 13:46:15 9.8 6.6-11.1 ( fL) Final Performing Location [facility] [place] [place] [address]
--- OUTSIDE RECORDS SUMMARY | 2023-08-23 16:19 | External Medical Summary ---
Author Name Unknown Address Unknown Organization [id number]:[facility]ATORY [facility] - [address] [facility] [place] [address] Laboratory Report Ordering Provider Test Date Status SHIRLENE CALLE 07/06/2023 13:46:15 Final Observation Date Value Abnormality Reference (Units ) Status PSA 07/06/2023 13:46:15 2.75 <4.10 (ng/ mL) Final Performing Location [facility] - [address] [place] [address]
--- OUTSIDE RECORDS SUMMARY | 2023-08-23 16:19 | External Medical Summary ---
Author Name Unknown Address Unknown Organization [id number]:[facility] [place] [address] [facility] [place] [address] Laboratory Report Ordering Provider Test Date Status SHIRLENE CALLE 07/06/2023 13:46:15 Final Observation Date Value Abnormality Reference (Units ) Status Iron 07/06/2023 13:46:15 78 45-176 (ug /dL) Final Iron-binding capacity 07/06/2023 13:46:15 349 250-425 (ug/dL) Final Transferrin Sat % 07/06/2023 13:46:15 22 15 -55 (%) Final Performing Location [facility] [place] [address] [facility] [place] [address]
--- OUTSIDE RECORDS SUMMARY | 2023-08-23 16:19 | External Medical Summary | Summary of Care ---
Author Name Unknown Organization [facility] Address [address] [place] [address] Phone [phone] Care Team Providers Care Baggage Porter Head Name Role Phone Jose Alfredo Meyers MD Primary Care Provider + Reason for Referral * Evaluate & Treat - Unlimited Visits (Within 30 days (routine)) - Pending Review Specialty Diagnoses / Procedures Referred By Domitila gonzalez Referred To Contact Gastroenterology Diagnoses Esophagitis Jose Alfredo Meyers MD [facility] [address] [place] [address] Referral ID Status Reason Start Date Expiration Date Visits Requested Visits Authorized [id number] Pending Review Specialty Services Required [phone] Question Answer Referral Priority Within 30 days (routine) Where should this appointment be scheduled? [facility] For what condition is the patient being referred? All Gastro Conditions Comments H/o esophagitis, deferred EGD in past given massive diskitis after last egd ?other treatment Reason for Visit * Reason Onset Date Comments Test Results 07/07/2023 Encounter Details Date Type Department Care Team (Late st Contact Info) Description 07/07/2023 Telephone General Internal Medicine [place] [facility] [place] [address] Jose Alfredo Meyers MD [address] [place] [address] [place] [id number] Test Results Allergies Active Allergy Reactions Criticality Noted Date Comments Pantoprazole High 04/30/2020 Swelling lips ,mouth per pt documented as of this encounter (statuses as of 07/12/2023) Medications Medication Sig Dispensed Refills Start Date [...] EVERY DAY 90 Tablet 3 05/11/2023 Active Rosuvastatin Calcium 10 MG Oral Tablet (Crestor) Take 1 Tablet by mouth in the morning. 90 Tablet 3 07/07/2023 07/07/2023 Discontinued( Refill) documented as of this encounter (statuses as of 07/12/2023) Active Problems Problem Noted Date Diagnosed Date [...] as of this encounter (statuses as of 07/12/2023) Resolved Problems Problem Noted Date Diagnosed Date [...] as of this encounter (statuses as of 07/12/2023) Immunizations Name Administration Dates Next Due RSV [...] encounter Miscellaneous Notes * Telephone Encounter - Yanira Strange OSA - 07/12/2023 12:28 PM EST Gastro is contacting to schedule as well . * Telephone Encounter - Frank Soliz OSA - 07/07/2023 10:11 AM EST My G sent * Telephone Encounter - Jose Luis Jaffe CMA - 07/07/2023 8:58 AM EST Patient aware and verbalized understanding, agreeable to Crestor 10mg and agreeable to seeing GI, scheduling please assist * Telephone Encounter - Jose Luis Jaffe CMA - 07/07/2023 8:56 AM EST ----- Message from Jose Alfredo Meyers MD sent at 07/07/2023 8:24 AM EST ----- 1. Pre-DM better, would avoid sweets, breads, pastas, soda/juices to help prevent Dm down the line 2. Lipids a little worse. Suggest crestor 10 mg nightly to help lower lipids/reduce [place] risk. Watch out for muscle aches/pains, fatigue, cola colored urine, and call if develop. Labs 1 month 3. Rest of labs fine 4. He has a history of esophagitis (inflammation of esophagus). I know he is feeling well, and I amnot keen on doing another egd given history of infection, but I would feel he should see GI again to make sure nothing else needs to be done to monitor, is he willing to go? If so I will place referral documented in this encounter Plan of Treatment Upcoming Encounters Date Type Department Care Team (Late st Contact Info) Description 07/14/2023 10:15 AM EST Imaging Radiology [facility] [place] [id number] 07/25/2023 7:15 AM EST [facility] [address] [address] 07/06/2024 8:40 AM EST Office Visit General Internal Medicine [facility] [place] [address] [place] [address] Jose Alfredo Meyers MD 200 [facility] [place] [address] Scheduled Referrals Name Type Priority Associated Diagnoses Order Schedule ADULT GASTROENTEROLOGY REFERRAL OP Referral Within 30 days (routine) Esophagitis Ordered: 07/07/2023 Health Maintenance Due Date Last Done Comments [...] this encounter Medical Devices Implanted Type Area Bench Molder Apprentice Device Identifier Shelf Expiration Date Model / Serial / Lot Envista [id number] Implanted:Qty: 1 on 05/24/2019 by Ino Fountain MD at OR [facility] Left: Eye [employer] 11/05/2021 [id number] / [id number] / [id number] Implanted:Qty: 1 on 05/31/2019 by Ino Fountain MD at OR [facility] Right: Eye 11/05/2021 [id number] / [id number] / [id number] documented as of this encounter Visit Diagnoses Diagnosis Esophagitis- Primary Esophagitis, unspecified documented in this encounter Advance Directives Latest Code Status on File Code Status Date Activated Date Inactivated Comments Full Code 05/06/2020 11:49 PM 05/13/2020 9:14 PM This order reflects the patients wishes and were consensually agreed upon. Question Answer Comments Discussion of Advance Directives occurred with: Patient Care Teams Baggage Porter Head Relationship Specialty Start Date End Date Jose Alfredo Meyers MD [address] [place] [address] PCP - General Internal Medicine 09/11/12 documented as of this encounter
--- OUTSIDE RECORDS SUMMARY | 2023-08-23 16:19 | External Medical Summary | Summary of Care ---
Author Name Unknown Organization [facility] Address [address] [place] [address] Phone [phone] Care Team Providers Care Core Winding Operator Name Role Phone Jose Alfredo Meyers MD Primary Care Provider + Encounter Details Date Type Department Care Team (Late st Contact Info) Description 06/07/2023 Orders Only Outcomes Research Department [address] [place] [address] Trinity Saleh CHRA [facility] Other*[id number] Allergies Active Allergy Reactions Criticality Noted Date Comments Pantoprazole High 04/30/2020 Swelling lips ,mouth per pt documented as of this encounter (statuses as of 06/07/2023) Medications Medication Sig Dispensed Refills Start Date End Date Status Iron-Vitamin C 100-250 MG Oral Tablet Take 1 Tab by mouth 2 times a day. 1 Tab 0 10/28/2020 Active Losartan Potassium 100 MG Oral Tablet (Cozaar)Indications: Hypertension goal BP (blood pressure) < 140/90 Take 1 Tablet by mouth in the morning. 90 Tablet 0 03/07/2023 Active amLODIPine Besylate 5 MG Oral Tablet (Norvasc) Take 1 Tablet by mouth in the morning. 90 Tablet 3 03/16/2023 Active Potassium Chloride Shelli ER 10 MEQ Oral Tablet Extended Release (Klor-Con M10)Indications:Hypo kalemia TAKE 4 TABLETS BY MOUTH EVERY DAY Strength: 10 mEq 360 Tablet 1 03/28/2023 Active Escitalopram Oxalate 20 MG Oral Tablet (Lexapro)Indications :Anxiety TAKE 1 TABLET BY MOUTH EVERY DAY 90 Tablet 3 05/11/2023 Active documented as of this encounter (statuses as of 06/07/2023) Active Problems Problem Noted Date Diagnosed Date History of sepsis 03/29/2022 Overview: History of strep History of osteomyelitis 03/29/2022 Overview: C/t spine 2019 Diastolic dysfunction 04/27/2021 Mild aortic regurgitation 04/27/2021 History of 2019 novel coronavirus disease (COVID -19) 10/13/2020 Aortic root dilatation 10/13/2020 Esophagitis 05/15/2020 Premature ventricular contractions (PVCs) (VPCs) 05/07/2020 Hypokalemia 05/07/2020 DISH (diffuse idiopathic skeletal hyperostosis) 04/17/2020 Iron deficiency anemia 04/08/2020 Prediabetes 03/21/2018 Overview: Per Prediabetes protocol #1 - Recurrent major depressive disorder, in partial remission 01/18/2017 Rhinitis, nonallergic 09/19/2014 Hypertension goal BP (blood pressure) < 140/90 Anxiety documented as of this encounter (statuses as of 06/07/2023) Resolved Problems Problem Noted Date Diagnosed Date Resolved Date Acute osteomyelitis of cervical spine 03/12/2022 03/12/2022 Neck pain 05/26/2020 03/29/2022 GBS (group B streptococcus) infection 05/15/2020 05/15/2020 Infection due to Streptococcus gallolyticus 05/09/2020 03/29/2022 Dysphagia 05/09/2020 05/13/2020 Abscess in epidural space of spine 05/07/2020 03/29/2022 ANNE (acute kidney injury) 05/07/2020 Severe sepsis with acute organ dysfunction 05/07/2020 05/08/2020 Streptococcal bacteremia 05/07/202001/2020 Chronic cough 09/19/2014 02/05/2019 Overview: since 05/2014 Retinal tear 08/13/2013 02/05/2019 Overview: 2012 Anemia 09/11/2012 03/29/2022 documented as of this encounter (statuses as of 06/07/2023) Immunizations Name Administration Dates Next Due SEASONAL INFLUENZA, PF, 6 M & Above, IM , (FLULAVAL or FLUZONE) 05/26/2022,04/22/2021,04/22/2020,2018,05/01/2018 Seasonal Influenza, Quadriva lent, No Preserve, IM 05/01/2015 Seasonal Influenza, Split, I IV3, With Preserve, Inj 08/13/2013 TDAP (age 10 and older)(Boostrix) 03/21/2013 Zoster Vaccine Recombinant (Shingrix) 03/31/2018 ,01/26/2018 documented as of this encounter Social History Tobacco Use Types Packs/Day Years Used Date Smoking Tobacco: Never Smokeless Tobacco: Never Comments:no passive smoke Alcohol Use Standard Drinks/Week Comments No 0 (1 standard drink = 0.6 oz pur e alcohol) Sex and Gender Information Value Date Recorded [...] or making decisions? (5 years old or older No 05/06/2020 documented as of this encounter Plan of Treatment Upcoming Encounters Date Type Department Care Team (Late st Contact Info) Description 07/06/2023 12:40 PM EST Office Visit General Internal Medicine [facility] [place] [address] [place] [address] Jose Alfredo Meyers MD [address] [place], [place] [address] 07/25/2023 7:15 AM EST Cardiac Studies Cardiac Studies, [facility] [address] [place] [address] Scheduled Orders Name Type Priority Associated Diagnoses Orde r Schedule MYCODE SUBSEQUENT ADULT Lab Routine [employer] Research Other*[id number] Every 6 Months for 2 Occurrences starting 06/07/2023 until 06/26/2024 Health Maintenance Due Date Last Done Comments COVID-19 Vaccine (#1) 1962 Cologuard 2007 Fecal Occult Blood Test 2007 Sigmoidoscopy 2007 Depression Screening 04/30/2021 04/30/2020 DTaP,Tdap,and Td Vaccines (2 - Td or Tdap) 03/21/2023 03/21/2013 Influenza Vaccine (FLU shot) (#1) 2023 05/26/2022, 04/22/2021, 04/22/2020, Additional history exists HbA1c 04/09/2023 04/09/2022, 10/08, 10/27/2020, Additional history exists GFR 12/01/2023 11/30/2022, 02/0 04/2023, 04/09/2022, Additional history exists Albumin/Creatinine Ratio 04/09/2025 04/09/2022, 01/06 Lipid Panel 04/09/2027 04/09/2022, 10/07, 03/05/2020, Additional history exists Colonoscopy 02/27/2030 02/28/2020, 03/09, 03/30/2013 Colorectal Cancer Screening 02/27/2030 Zoster Vaccines Completed 03/31/2018, 01/26/2018 GARDASIL-HPV IMMUNIZATION SERIES Aged Out No longer [...] this encounter Medical Devices Implanted Type Area National Van Owner Operator Device Identifier Shelf Expiration Date Model / Serial / Lot Envista [id number] Implanted:Qty: 1 on 05/24/2019 by nIo Fountain MD at OR [facility] Left: Eye [employer] 11/05/2021 [id number] / [id number] / [id number] Implanted:Qty: 1 on 05/31/2019 by Ino Fountain MD at OR [facility] Right: Eye 11/05/2021 [id number] / [id number] / [id number] documented as of this encounter Visit Diagnoses Diagnosis [employer] [facility] Other*[id number] documented in this encounter Advance Directives Latest Code Status on File Code Status Date Activated Date Inactivated Comments Full Code 05/06/2020 11:49 PM 05/13/2020 9:14 PM This order reflects the patients wishes and were consensually agreed upon. Question Answer Comments Discussion of Advance Directives occurred with: Patient Care Teams Core Winding Operator Relationship Specialty Start Date End Date Jose Alfredo Meyers MD [address] [facility] [place] [address] PCP - General Internal Medicine 09/11/12 documented as of this encounter
--- OUTSIDE RECORDS SUMMARY | 2023-08-23 16:19 | External Medical Summary ---
Author Name Unknown Address Unknown Organization K01:[facility] - [address] [facility] [place] [facility] [address] Laboratory Report Ordering Provider Test Date Status SHIRLENE CALLE 07/06/2023 13:46:15 Final Observation Date Value Abnormality Reference (Units ) Status HbA1C 07/06/2023 13:46:15 5.7 Above high normal 4. 0-5.6 (%) Final The use of HbA1c to monitor glycemic status is based on normal hemoglobin and HbA composition. This test should not be used in patients with abnormal hemoglobin that affects the half life of the red blood cell or the in vivo glycation rates. Glucose, estimated average 07/06/2023 13:46:15 117 <126 (mg/dL) Final Performing Location [facility] [address] [facility] [address]
--- OUTSIDE RECORDS SUMMARY | 2023-08-23 16:19 | External Medical Summary | Summary of Care ---
Author Name Unknown Organization [facility] Address [address] [place] [address] Phone [phone] Care Team Providers Care Field Enumerator Name Role Phone Jose Alfredo Meyers MD Primary Care Provider + Reason for Referral * (Within 10 days (routine)) - Pending Review Specialty Diagnoses / Procedures Referred By Contcristofer t Referred To Contact Radiology Diagnoses Kidney cysts Procedures US RENAL Jose Alfredo Meyers MD [address] [facility] [address] Referral ID Status Reason Start Date Expiration Date V isits Requested Visits Authorized [id number] Pending Review 07/06/2023 999 999 Reason for [...] [place] [address] [place] [address] Jose Alfredo Meyers MD [address] [place] [address] [address] Physical exam, annual*; Prediabetes; Hypertension goal BP (blood pressure) < 140/90; Kidney cysts; Recurrent major depressive disorder, in partial remission (HCC); Iron deficiency anemia, unspecified iron deficiency anemia type; Mild aortic regurgitation; Aortic root dilatation (HCC); Screening for prostate cancer; Need for prophylactic vaccination and inoculation against influenza; Need for RSV vaccination; Need for hwaucpxvdw-jbkpwgt-dn rtussis (Tdap) vaccine Allergies Active Allergy Reactions Criticality Noted Date Comments Pantoprazole High 04/30/2020 Swelling lips ,mouth per pt documented as of this encounter (statuses as of 07/06/2023) Medications Medication Sig Dispensed Refills Start Date [...] as of this encounter (statuses as of 07/06/2023) Active Problems Problem Noted Date Diagnosed Date [...] as of this encounter (statuses as of 07/06/2023) Resolved Problems Problem Noted Date Diagnosed Date [...] as of this encounter (statuses as of 07/06/2023) Immunizations Name Administration Dates Next Due RSV [...] pur e alcohol) PHQ-2 Answer Date Recorded PHQ-2 Score -1 04/30/2020 Hunger Vital Sign Answer Date Recorded Worried [...] prescription/drug coverage. Patient has been informed that [employer] co-pays are close to $0. 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 He is taking iron fine. [...] level: Not on file Occupational History Occupation: [employer] Tobacco Use Smoking status: Never Smokeless tobacco: [...] performed by Adan Velasco MD at ENDOSCOPY [facility] COLONOSCOPY, DIAGNOSTIC (RECTUM) 02/28/2020 diverticulosis / [facility] COLONOSCOPY, DIAGNOSTIC (RECTUM) 02/28/2020 diverticulosis / [facility] EGD, FLEXIBLE, DIAGNOSTIC 03/30/2013 path showed mild inflammation from acid reflux , neg for H pylori and neg for celiac EGD, FLEXIBLE, DIAGNOSTIC 02/28/2020 reflux esophagitis, eso nodule, duodenal diverticulum / [facility] EGD, W/ENDOSCOPIC US 04/07/2020 Extrinsic compression / ESOPHAGOGASTRODUODENOSCOPY (EGD), FLEXIBLE, TRANSORAL, ENDOSCOPIC ULTRASOUND performed by Damion Suarez MD at ENDOSCOPY [facility] EXPLORATORY ELBOW SURGERY 08/08/2013 I&D POST CERV/THORACIC SPINE,DEEP ABSCESS N/A 05/08/2020 INCISION DRAINAGE DEEP ABSCESS POSTERIOR CERVICAL THORACICSPINE performed by Tyler Babin MD at OR [facility] MISCELLANEOUS ORDER ([facility] ONLY) 08/08/2004 l4/l5 disc surgery REMOVE CATARACT, INSERT LENS PROSTH Left 05/24/2019 left EXTRACAPSULAR CATARACT REMOVAL WITH INTRAOCULAR LENS performed by Ino Fountain MD at [facility] REMOVE CATARACT, INSERT LENS PROSTH Right 05/31/2019 right EXTRACAPSULAR CATARACT REMOVAL WITH INTRAOCULAR LENS performed by Ino Fountain MD at [facility] REPAIR DETACHED RETINA, VITRECTOMY 06/08/2013 REPAIR OF TEAR REVISION OF ULNAR NERVE AT ELBOW Right 09/24/2022 NEUROPLASTY AND OR TRANSPOSITION ULNAR NERVE ELBOW performed by Je Domínguez DO at OR [facility] Family History Problem Relation Age of Onset [...] Need for RSV vaccination Z23 Need for ldjelatiiz-mzsreys-lojyhzqoz (Tdap) vaccine PLAN: Physical exam, annual (Primary) [...] PERFUSION F, PF,0.5 ML (ABRYSVO) Need for lwaddxpvtw-uktkdyr-kvhzaaqun (Tdap) vaccine - TDAP (AGE 10 AND OLDER)(BOOSTRIX) Follow Up: Return in about 1 year (around 07/06/2024), or if symptoms worsen or fail to improve, for Labs Today. | For: Labs Today Jose Alfredo Meyers MD * Jose Luis Jaffe CMA - 07/06/2023 12:38 PM EST PRE - ADMINISTRATION DOCUMENTATION Are you experiencing any cold symptoms or fever? No Have you had Guillain-[place] Syndrome (an illness that causes paralysis) within [...] this patient qualify for immunization through the VF program because he/she (check only one): No-this child does not qualify for VFC program; refer patient to a [facility] Qualified [facility] Immunization(s) verified: Yes, Immunization Name: Flu and [...] Pneumo Inj Immunizations documented in this encounter Plan of Treatment Upcoming Encounters Date Type Department Care Team (Late st Contact Info) Description 07/14/2023 10:15 AM EST Imaging Radiology [address] [address] 07/25/2023 7:15 AM EST Cardiac Studies Cardiac Studies, [address] [place] [address] 07/06/2024 8:40 AM EST Office Visit General Internal Medicine [facility] [address] [facility] [place] [address] Jose Alfredo Meyers MD [address] [facility] [place] [address] Scheduled Orders Name Type Priority Associated Diagnoses Orde r Schedule US RENAL Medical Imaging Routine Kidney cysts Expected: 07/06/2023, Expires: 08/05/2024 COMPREHENSIVE METABOLIC PANEL Lab Routine Hypertension goal BP (blood pressure) < 140/90 Expected: 07/06/2023 (Approximate), Expires: 07/05/2024 LIPID PANEL WITH DIRECT LDL IF TG IS HIGH Lab Routine Hypertension goal BP (blood pressure) < 140/90 Expected: 07/06/2023, Expires: 07/06/2024 CBC WITH WBC DIFFERENTIAL Lab Routine Iron deficiency anemia, unspecified iron deficiency anemia type Expected: 07/06/2023 (Approximate), Expires: 07/06/2024 IRON SCREEN, INCLUDING TIBC Lab Routine Iron deficiency anemia, unspecified iron deficiency anemia type Expected: 07/06/2023 (Approximate), Expires: 07/05/2024 FERRITIN Lab Routine Iron deficiency anemia, unspecified iron deficiency anemia type Expected: 07/06/2023 (Approximate), Expires: 07/05/2024 HEMOGLOBIN A1C Lab Routine Prediabetes Expected: 07/06/2023 (Approximate), Expires: 07/05/2024 PSA Lab Routine Screening for prostate cancer Expected: 07/06/2023 (Approximate), Expires: 07/05/2024 TSH Lab Routine Hypertension goal BP (blood pressure) < 140/90 Expected: 07/06/2023 (Approximate), Expires: 07/05/2024 Health Maintenance Due Date Last Done Comments COVID-19 Vaccine (#1) 1962 Cologuard 2007 Fecal Occult Blood Test 2007 Sigmoidoscopy 2007 Depression Screening 04/30/2021 07/06/2023 HbA1c 04/09/2023 04/09/2022, 10/08, 10/27/2020, Additional history exists GFR 12/01/2023 11/30/2022, 04/2023, 04/09/2022, Additional history exists Albumin/Creatinine Ratio [...] this encounter Medical Devices Implanted Type Area Preschool Assistant Director Device Identifier Shelf Expiration Date Model / Serial / Lot Envista [id number] Implanted:Qty: 1 on 05/24/2019 by Ino Fountain MD at OR [facility] Left: Eye [employer] 11/05/2021 [id number] / [id number] / [id number] Implanted:Qty: 1 on 05/31/2019 by Ino Fountain MD at OR [facility] Right: Eye 11/05/2021 [id number] / [id number] / [id number] documented as of this encounter Visit Diagnoses Diagnosis Physical exam, [...] inoculation against respiratory syncytial virus Need for pwwexvsaqy-yrjhjww-hyqaotxtz (Tdap) vaccine Need for prophylactic vaccination with combined krfzdqbkwm-mlrrumw-zqwpjkifn (DTP) vaccine documented in this encounter Advance Directives Latest Code Status on File Code Status Date Activated Date Inactivated Comments Full Code 05/06/2020 11:49 PM 05/13/2020 9:14 PM This order reflects the patients wishes and were consensually agreed upon. Question Answer Comments Discussion of Advance Directives occurred with: Patient Care Teams Field Enumerator Relationship Specialty Start Date End Date Jose Alfredo Meyers MD [address] [facility] [place] [address] PCP - General Internal Medicine 09/11/12 documented as of this encounter"
--- OUTSIDE RECORDS SUMMARY | 2023-08-23 16:19 | External Medical Summary | Summary of Care ---
Author Name Unknown Organization [facility] Address [address] [place] [address] Phone [phone] Care Team Providers Care Manager Willow Name Role Phone Jose Alfredo Meyers MD Primary Care Provider + Reason for Visit * Reason Comments Follow Up Right knee Encounter Details Date Type Department Care Team (Latest Contact Info) Description 07/21/2023 9:15 AM EST Office Visit Orthopaedics [facility] [address] [facility] [place] [address] Johann Ochoa PA-C [address] [facility] [place] [address] Primary osteoarthritis of right knee* Allergies Active Allergy Reactions Criticality Noted Date Comments Pantoprazole High 04/30/2020 Swelling lips ,mouth per pt documented as of this encounter (statuses as of 07/21/2023) Medications Medication Sig Dispensed Refills Start Date End Date Status Iron-Vitamin C 100-250 MG Oral Tablet Take 1 Tab by mouth 2 times a day. 1 Tab 0 10/28/2020 Active Losartan Potassium 100 MG Oral Tablet (Cozaar)Indications:H ypertension goal BP (blood pressure) < 140/90 Take 1 Tablet by mouth in the morning. 90 Tablet 0 03/07/2023 Active amLODIPine Besylate 5 MG Oral Tablet (Norvasc) Take 1 Tablet by mouth in the morning. 90 Tablet 3 03/16/2023 Active Escitalopram Oxalate 20 MG Oral Tablet (Lexapro)Indications: Anxiety TAKE 1 TABLET BY MOUTH EVERY DAY 90 Tablet 3 05/11/2023 Active Hospital, Clinic, or Other Facility Administered Medication Ordered Dose Route Frequency Start Date End Date Status lidocaine 1% 1 mL - triamcinolone acetonide 40 mg/mL 1 mL inj 2 mLIndications:Primary osteoarthritis of right knee 2 mL IJ ONCE 07/21/2023 07/21/2023 Ended documented as of this encounter (statuses as of 07/21/2023) Active Problems Problem Noted Date Diagnosed Date [...] as of this encounter (statuses as of 07/21/2023) Resolved Problems Problem Noted Date Diagnosed Date [...] as of this encounter (statuses as of 07/21/2023) Immunizations Name Administration Dates Next Due RSV [...] No 05/06/2020 documented as of this encounter Progress Notes * Johann Ochoa PA-C - 07/21/2023 9:13 AM ESTAssociated Order(s): LG Joint Inj/Arthro: R knee Post-Procedure Diagnose(s): Primary osteoarthritis of right knee Patient with early degenerative changes of the right knee received an injection 16 months ago. States that was quite beneficial for him. Is inquiring about a subsequent injection today. Denies any new injury or fall. Denies any mechanical symptoms or instability. No swelling or redness. No calf pain. X-rays on file. Benefits of the injection correlate clinically with the severity of his osteoarthritis, in my opinion. Denies any adverse reactions from his previous steroid injection. Review of Systems complete review of systems negative Physical Exam General: alert and oriented x3 male, no acute distress, appears currently stated age,pleasant, well nourished Skin: Right knee does not reveal any erythema, effusion, ecchymosis, abrasion, laceration, skin breakdown otherwise Neurovascular: Right lower extremity is neurovascularly intact with good sensation strength throughout, calf supple nontender, toes were mobile, +5 strength dorsi and plantar flexion of the foot Musculoskeletal: Right knee ROM 0-120, medial jointline tenderness, positive Archie's medial joint line , minimal crepitation noted in PFJ, femoral condyles are nontender. Ligamentously stable regarding cruciate and collateral ligaments. Extensor mechanism intact. No obvious cystic change or masses the popliteal fossa. Pes anserine bursa and patellar tendon nontender. Hip and ankle atraumatic X-rays of the right knee previously obtained reveal mild osteoarthritis the right knee with evidence of chondrocalcinosis medial joint line consistent with a previous arthroscopy surgery Impression: Knee osteoarthritis right Plan: Today 's findings were discussed with the patient. They were educated regarding their diagnosis. Multiple treatment options discussed and agreed upon, including repeat steroid injection for theright knee today. Updated consent and time-out performed. Can follow-up as early series 4 months but has recent injection lasted upwards of a year and a half in my presumption is that will be 6 months or greater. Would happily see him back sooner upon his The patient has no other questions or concerns. Pleased with today 's care. Call sooner if needed. Patient instructed to call or return to clinic for fever or warmth and redness at injection site for potential infection. Patient also advised as to potential for steroid flare reaction including increased pain and redness at injection site which should be treated with ice and resolve within 24 hours. LG Joint Inj/Arthro: R knee on 07/21/2023 9:14 AM Indications: pain Details: 22 G needle, anteromedial approach Medications: (Triamcinolone lidocaine) Outcome: tolerated well, no immediate complications Procedure, treatment alternatives, risks and benefits explained, specific risks discussed. Consent was given by the patient. Immediately prior to procedure a time out was called to verify the correctpatient, procedure, equipment, learning support services director and site/side marked as required. Patient was prepped and draped in the usual sterile fashion. This chart was completed in part utilizing [employer] Speech Voice Recognition Software. Grammatical errors, random word insertions, prounoun errors, and incomplete sentences are an occasional consequence of this system due to software limitations, ambient noise, and hardware issues. Any formal questions or concerns about the content, text, or information contained within the body of this dictation should be directly addressed to the provider for clarification. documented in this encounter Nursing Notes * Alissa Faith MED ASSIST - 07/21/2023 8:50 AM EST Patient presents today for follow up on right knee, here for repeat inj. documented in this encounter Plan of Treatment Upcoming Encounters Date Type Department Care Team (Late st Contact Info) Description 07/25/2023 7:15 AM EST Cardiac Studies Cardiac Studies, [facility] [address] [place] [address] 07/06/2024 8:40 AM EST Office Visit General Internal Medicine [facility] [address] [facility] [place] [address] Jose Alfredo Meyers MD [address] [facility] [place] [address] Health Maintenance Due Date Last Done Comments COVID-19 Vaccine (#1) 1962 Cologuard 2007 Fecal Occult Blood Test 2007 Sigmoidoscopy 2007 Depression Screening 07/06/2024 07/06/2023 GFR 07/06/2024 07/06/2023, 2 12/2022, 09/16/2022, Additional history exists HbA1c 07/06/2024 07/06/2023, 090 09/2021, 11/04/2021, Additional history exists Albumin/Creatinine Ratio 04/09/2025 04/09/2022, 01/06 Lipid Panel 07/06/2028 07/06/2023, 090 09/2021, 10/27/2020, Additional history exists Colonoscopy 02/27/2030 [...] this encounter Medical Devices Implanted Type Area Clip On Sunglasses Assembler Device Identifier Shelf Expiration Date Model / Serial / Lot Envista [id number] Implanted:Qty: 1 on 05/24/2019 by Ino Fountain MD at OR [facility] Left: Eye [employer] 11/05/2021 [id number] / [id number] / [id number] Implanted:Qty: 1 on 05/31/2019 by Ino Fountain MD at OR [facility] Right: Eye 11/05/2021 [id number] / [id number] / [id number] documented as of this encounter Procedures Procedure Name Priority Date/Time Associated Diagnosis Comments MD ARTHROCENTESIS ASPIR&/INJ MAJOR JT/BURSA W/O US Routine 07/21/2023 9:14 AM EST Primary osteoarthritis of right knee documented in this encounter Results * MD ARTHROCENTESIS ASPIR&/INJ MAJOR JT/BURSA W/O US (07/21/2023 9:14 AM EST) Narrative Johann Ochoa PA-C - 07/21/2023 9:14 AM EST Johann Ochoa PA-C 07/21/2023 9:15 AM LG Joint Inj/Arthro: R knee on 07/21/2023 9:14 AM Indications: pain Details: 22 G needle, anteromedial approach Medications: (Triamcinolone lidocaine) Outcome: tolerated well, no immediate complications Procedure, treatment alternatives, risks and benefits explained, specific risks discussed. Consent was given by the patient. Immediately prior to procedure a time out was called to verify the correct patient, procedure, equipment, learning support services director and site/side marked as required. Patient was prepped and draped in the usual sterile fashion. Johann Ochoa PA-C PROCDOC FORM documented in this encounter Visit Diagnoses Diagnosis Primary osteoarthritis of right knee- Primary Primary localized osteoarthrosis, lower leg documented in this encounter Administered Medications Inactive Administered Medications - up to 3 most recent administrations Medication Order MAR Action Action Date Dose Rate Site lidocaine 1% 1 mL - triamcinolone acetonide 40 mg/mL 1 mL inj 2 mL 2 mL, Injection, ONCE, On Alysha 07/21/23 at 0945, For 1 dose, Lidocaine 1% 1mL Triamcinolone Acetonide 40 mg/mL 1 mL (Final concentration = 20 mg/mL) REFRIGERATE and SHAKE WELL Given 07/21/2023 9:47 AM EST 2 mL Knee Right documented in this encounter Advance Directives Latest Code Status on File Code Status Date Activated Date Inactivated Comments Full Code 05/06/2020 11:49 PM 05/13/2020 9:14 PM This order reflects the patients wishes and were consensually agreed upon. Question Answer Comments Discussion of Advance Directives occurred with: Patient Care Teams Manager Willow Relationship Specialty Start Date End Date Jose Alfredo Meyers MD [address] [place] [address] PCP - General Internal Medicine 09/11/12 documented as of this encounter
--- OUTSIDE RECORDS SUMMARY | 2023-08-23 16:19 | External Medical Summary ---
Author Name Unknown Address Unknown Organization [id number]:[facility] [place] [address] Laboratory Report Ordering Provider Test Date Status SHIRLENE CALLE 07/06/2023 13:46:15 Final Observation Date Value Abnormality Reference (Units ) Status SYNC LEUKOCYTES IN BLOOD BY AUTOMATED COUNT 07/06/2023 13:46:15 7.58 4.00-10.80 (K/uL) Final Segs 07/06/2023 13:46:15 61.0 40.0-75.0 (%) Final Lymphs % 07/06/2023 13:46:15 24.3 18.0-42.0 (%) Final Monos 07/06/2023 13:46:15 9.6 1.0-11.0 (%) Final Eosinophils 07/06/2023 13:46:15 4.4 0.0-6.0 (%) Final Basos 07/06/2023 13:46:15 0.7 0.0-2.0 (%) Final Absolute Segs 07/06/2023 13:46:15 4.63 1.80-7.70 (K/uL) Final Lymphs, absolute 07/06/2023 13:46:15 1.84 1.00-4.80 (K/ul) Final Monos, Abs 07/06/2023 13:46:15 0.73 0.00-1.10 (K/uL) Final Eos, Abs 07/06/2023 13:46:15 0.33 0.00-0.70 (K/uL) Final Basos, Abs 07/06/2023 13:46:15 0.05 0.00-0.20 (K/uL) Final Performing Location [facility] [place] [address]
--- OUTSIDE RECORDS SUMMARY | 2023-08-23 16:19 | External Medical Summary | Summary of Care ---
Author Name Unknown Organization [facility] Address [address] [place] [address] Phone [phone] Care Team Providers Care Chemic Mangler Name Role Phone Jose Alfredo Meyers MD Primary Care Provider + Reason for Visit * Reason Comments Follow Up Right knee Encounter Details Date Type Department Care Team (Latest Contact Info) Description 07/21/2023 9:15 AM EST Office Visit Orthopaedics [facility] [address] [facility] [place] [address] Johann Ochoa PA-C [address] [facility] [place] [address] Primary osteoarthritis of right knee* Allergies Active [...] knee 2 mL IJ ONCE 07/21/2023 07/21/2023 Active documented as of this encounter (statuses [...] called to verify the correctpatient, procedure, equipment, legal support assistant and site/side marked as required. Patient was prepped and draped in the usual sterile fashion. This chart was completed in part utilizing [employer] Speech Voice Recognition Software. Grammatical errors, random [...] 7:15 AM EST Cardiac Studies Cardiac Studies, [facility] [address] [place] [address] 07/06/2024 8:40 AM EST Office Visit General Internal Medicine [facility] [address] [facility] [place] [address] Jose Alfredo Meyers MD 200 [facility] [place] [address] Health Maintenance Due Date Last Done Comments [...] this encounter Medical Devices Implanted Type Area Outpatient Facility Physical Therapist Device Identifier Shelf Expiration Date Model / Serial / Lot Envista [id number] Implanted:Qty: 1 on 05/24/2019 by Ino Fountain MD at OR [facility] Left: Eye [employer] 11/05/2021 [id number] / [id number] / [id number] Implanted:Qty: 1 on 05/31/2019 by Ino Fountain MD at OR [facility] Right: Eye 11/05/2021 [id number] / [id number] / [id number] documented as of this encounter Procedures Procedure Name Priority Date/Time Associated Diagnosis Comments [place] ARTHROCENTESIS ASPIR&/INJ MAJOR JT/BURSA W/O US Routine 07/21/2023 9:14 AM EST Primary osteoarthritis of right knee documented in this encounter Results * VA ARTHROCENTESIS ASPIR&/INJ MAJOR JT/BURSA W/O US (07/21/2023 [...] to verify the correct patient, procedure, equipment, legal support assistant and site/side marked as required. Patient was prepped and draped in the usual sterile fashion. Johann Ochoa PA-C PROCDOC FORM documented in this encounter Visit Diagnoses Diagnosis Primary osteoarthritis of right knee- Primary Primary localized osteoarthrosis, lower leg documented in this encounter Advance Directives Latest Code Status on File Code Status Date Activated Date Inactivated Comments Full Code 05/06/2020 11:49 PM 05/13/2020 9:14 PM This order reflects the patients wishes and were consensually agreed upon. Question Answer Comments Discussion of Advance Directives occurred with: Patient Care Teams Chemic Mangler Relationship Specialty Start Date End Date Jose Alfredo Meyers MD [address] [facility] [place] [address] PCP - General Internal Medicine 09/11/12 documented as of this encounter
--- OUTSIDE RECORDS SUMMARY | 2023-08-23 16:19 | External Medical Summary | Summary of Care ---
Author Name Unknown Organization [facility] Address [address] [place] [address] Phone [phone] Care Team Providers Care Turn Operator Name Role Phone Jose Alfredo Meyers MD Primary Care Provider + Reason for Visit * Reason Comments Outpatient Testing Encounter Details Date Type Department Care Team (Late st Contact Info) Description 07/06/2023 1:30 PM EST Laboratory Laboratory [facility] [address] [place] [id number] [facility] [address] [place] [address] Hypertension goal BP (blood pressure) < 140/90; Iron deficiency anemia, unspecified iron deficiency anemia type; Prediabetes; Screening for prostate cancer Allergies Active Allergy Reactions Criticality Noted Date [...] Description 07/14/2023 10:15 AM EST [facility] [address] [place] [address] 07/25/2023 7:15 AM EST [facility] [address] [place] [address] 07/06/2024 8:40 AM EST Office Visit General Internal Medicine [facility] [place] [address] [facility] [place] [address] Jose Alfredo Meyers MD 200 [facility] [place] [address] Pending Results Name Type Priority Associated Diagnoses Date /Time COMPREHENSIVE METABOLIC PANEL Lab Routine Hypertension goal BP (blood pressure) < 140/90 07/06/2023 1:46 PM EST LIPID PANEL WITH DIRECT LDL IF TG IS HIGH Lab Routine Hypertension goal BP (blood pressure) < 140/90 07/06/2023 1:46 PM EST CBC WITH WBC DIFFERENTIAL Lab Routine Iron deficiency anemia, unspecified iron deficiency anemia type 07/06/2023 1:46 PM EST IRON SCREEN, INCLUDING TIBC Lab Routine Iron deficiency anemia, unspecified iron deficiency anemia type 07/06/2023 1:46 PM EST FERRITIN Lab Routine Iron deficiency anemia, unspecified iron deficiency anemia type 07/06/2023 1:46 PM EST HEMOGLOBIN A1C Lab Routine Prediabetes 07/06/2023 1:46 PM EST PSA Lab Routine Screening for prostate cancer 07/06/2023 1:46 PM EST TSH Lab Routine Hypertension goal BP (blood pressure) < 140/90 07/06/2023 1:46 PM EST CBC Lab Routine Iron deficiency anemia, unspecified iron deficiency anemia type 07/06/2023 1:46 PM EST DIFFERENTIAL, AUTOMATED Lab Routine Iron deficiency anemia, unspecified iron deficiency anemia type 07/06/2023 1:46 PM EST Health Maintenance Due Date Last Done Comments COVID-19 Vaccine (#1) 1962 Cologuard 2007 Fecal Occult Blood Test 2007 Sigmoidoscopy 2007 HbA1c 04/09/2023 04/09/2022, 10/08, 10/27/2020, Additional history exists GFR 12/01/2023 11/30/2022, 0 04/2023, 04/09/2022, Additional history exists Depression Screening 07/06/2024 07/06/2023 Albumin/Creatinine Ratio 04/09/2025 04/09/2022, 01/06 Lipid Panel [...] this encounter Medical Devices Implanted Type Area Emotional Support Teacher Device Identifier Shelf Expiration Date Model / Serial / Lot Envista [id number] Implanted:Qty: 1 on 05/24/2019 by Ino Fountain MD at OR [facility] Left: Eye [employer] 11/05/2021 [id number] / [id number] / [id number] Implanted:Qty: 1 on 05/31/2019 by Ino Fountain MD at OR [facility] Right: Eye 11/05/2021 [id number] / [id number] / [id number] documented as of this encounter Visit Diagnoses Diagnosis Hypertension goal BP (blood pressure) < 140/90 Unspecified essential hypertension Iron deficiency anemia, unspecified iron deficiency anemia type Prediabetes Other abnormal glucose Screening for prostate cancer Special screening for malignant neoplasm of prostate documented in this encounter Advance Directives Latest Code Status on File Code Status Date Activated Date Inactivated Comments Full Code 05/06/2020 11:49 PM 05/13/2020 9:14 PM This order reflects the patients wishes and were consensually agreed upon. Question Answer Comments Discussion of Advance Directives occurred with: Patient Care Teams Turn Operator Relationship Specialty Start Date End Date Jose Alfredo Meyers MD [address] [facility] [place] [address] PCP - General Internal Medicine 09/11/12 documented as of this encounter
--- OUTSIDE RECORDS SUMMARY | 2023-08-23 16:19 | External Medical Summary ---
Author Name Unknown Address Unknown Organization [id number]:[facility] - [address] [place] [address] Laboratory Report Ordering Provider Test Date Status SHIRLENE CALLE 07/06/2023 13:46:15 Final Observation Date Value Abnormality Reference (Units ) Status TSH 07/06/2023 13:46:15 0.52 0.27-4.20 (uIU/mL) Final Performing Location [facility] - [address] [place] [address]
--- OUTSIDE RECORDS SUMMARY | 2023-08-23 16:19 | External Medical Summary ---
Author Name Unknown Address Unknown Organization K01[facility] [address] [place] [address] Laboratory Report Ordering Provider Test Date Status SHIRLENE CALLE 07/06/2023 13:46:15 Final Observation Date Value Abnormality Reference (Units ) Status Ferritin 07/06/2023 13:46:15 92 30-400 (ng /mL) Final Performing Location [facility] - [address] [place] [address]
--- OUTSIDE RECORDS SUMMARY | 2023-08-23 16:20 | External Medical Summary | Summary of Care ---
Author Name Unknown Organization [facility] Address [address] [place] [address] Phone [phone] Care Team Providers Care Dental Nurse Name Role Phone Jose Alfredo Meyers MD Primary Care Provider + Reason for Visit * Reason Comments eRx-Medication Refill Encounter Details Date Type Department Care Team Description 03/05/2023 Refill General Internal Medicine [facility] [place] [address] [place], [place] [id number] Jose Alfredo Meyers MD [address] [place], [place] [phone] Hypertension goal BP (blood pressure) < 140/90 Allergies Active Allergy Reactions Severity Noted Date Comments Pantoprazole High 04/30/2020 Swelling lips ,mouth per pt documented as of this encounter (statuses as of 03/07/2023) Medications Medication Sig Dispensed Refills Start Date End Date Status Iron-Vitamin C 100-250 MG Oral Tablet Take 1 Tab by mouth 2 times a day. 1 Tab 0 10/28/2020 Active Klor-Con M10 10 MEQ Oral Tablet Extended Release (potassium chloride ER)Indications:Hyp okalemia TAKE 4 TABLETS BY MOUTH EVERY DAY 120 Tablet 5 04/23/2022 Active Additional Information Patient taking differently: Indications: in am, Reported on 09/20/2022 Escitalopram Oxalate 20 MG Oral Tablet (Lexapro)Indicatio ns:Anxiety Take by mouth 1 Tablet in the morning. 90 Tablet 3 04/24/2022 Active documented as of this encounter (statuses as of 03/07/2023) Active Problems Problem Noted Date History of sepsis 03/29/2022 Overview: History of strep History of osteomyelitis 03/29/2022 Overview: C/t spine 2019 Diastolic dysfunction 04/27/2021 Mild aortic regurgitation 04/27/2021 History of 2019 novel coronavirus diseas e (COVID-19) 10/13/2020 Aortic root dilatation 10/13/2020 Esophagitis 05/15/2020 Premature ventricular contractions (PVCs ) (VPCs) 05/07/2020 Hypokalemia 05/07/2020 DISH (diffuse idiopathic skeletal hypero stosis) 04/17/2020 Iron deficiency anemia 04/08/2020 Prediabetes 03/21/2018 Overview: Per Prediabetes protocol #1 - Recurrent major depressive disorder, in partial remission 01/18/2017 Rhinitis, nonallergic 09/19/2014 Hypertension goal BP (blood pressure) < 140/90 Anxiety documented as of this encounter (statuses as of 03/07/2023) Resolved Problems Problem Noted Date Resolved Date Acute osteomyelitis of cervical spine 03/12/2022 03/12/2022 Neck pain 05/26/2020 03/29/2022 GBS (group B streptococcus) infection 05/15/2020 05/15/2020 Infection due to Streptococcus gallolyticus 09/201903/29/2022 Dysphagia 05/09/2020 05/13/2020 Abscess in epidural space of spine 05/07/2020 03/29/2022 ANNE (acute kidney injury) 05/07/20202019 Severe sepsis with acute organ dysfunction 05/0705/08/2020 Streptococcal bacteremia 05/07/2020 020 Chronic cough 09/19/2014 02/05/2019 Overview: since 05/2014 Retinal tear 08/13/2013 02/05/2019 Overview: 2013 Anemia 09/11/2012 03/29/2022 documented as of this encounter (statuses as of 03/07/2023) Immunizations Name Administration Dates Next Due Seasonal Influenza, Quadriva lent, No Preserve, 6 Mons & Above, IM 05/26/2022,04/22/2021,04/22/2020,2018,05/01/2018 Seasonal Influenza, Quadriva lent, No Preserve, [...] drink = 0.6 oz pur e alcohol) Food Insecurity Answer Date Recorded Within the past 12 months, y ou worried that your food would run out before you got money to buy more. Never true 03/05/2020 Within the past 12 months, t he food you bought just didn't last and you didn't have money to get more. Never true 03/05/2020 Sex Assigned at Date Recorded Male 02/05/2019 12:35 PM EDT Job Start Date Occupation Industry [...] encounter Miscellaneous Notes * Telephone Encounter - Logan Carranza, [facility] - 03/07/2023 12:02 PM EDT Refused Prescriptions: Disp Refills Losartan Potassium 100 MG Oral Tablet (Coz*90 Tab*0 Sig: TAKE 1TABLET BY MOUTH EVERY DAY IN THE MORNINGRefused By: LOGAN CARRANZA for Refusal: Duplicate Request documented in this encounter Plan of Treatment Upcoming Encounters Date Type Specialty Care Team Description 07/06/2023 [facility] [address] [place] [address], [place] [address] Health Maintenance Due Date Last Done Comments COVID-19 Vaccine (#1) 1962 Cologuard 2007 Fecal Occult Blood Test 2007 Sigmoidoscopy 2007 Depression Screening, Annual for Pts 12 and Over 04/30/2021 04/30/2020 DTaP,Tdap,and Td Vaccines (2 - [...] this encounter Medical Devices Implanted Type Area Filtration Operator Device Identifier Shelf Expiration Date Model / Serial / Lot Envista [id number] Implanted:Qty: 1 on 05/24/2019 by Ino Fountain MD at OR [facility] Left: Eye [employer]CH [employer] LOMB 11/05/2021 [id number] / [id number] / [id number] Implanted:Qty: 1 on 05/31/2019 by Ino Fountain MD at OR [facility] Right: Eye 11/05/2021 [id number] / [id number] / [id number] documented as of this encounter Visit Diagnoses [...] Advance Directives occurred with: Patient Care Teams Dental Nurse Relationship Specialty Start Date End Date Jose Alfredo Meyers MD [address] [place] [address] [place] [address] PCP - General Internal Medicine 09/11/12 documented as of this encounter
--- OUTSIDE RECORDS SUMMARY | 2023-08-23 16:20 | External Medical Summary | Summary of Care ---
Author Name Unknown Organization [facility] Address [address] [place] [address] Phone [phone] Care Team Providers Care Chronic Condition Nurse Name Role Phone Jose Alfredo Meyers MD Primary Care Provider + Reason for Visit * Reason Onset Date Comments Advice 03/07/2023 Encounter Details Date Type Department Care Team Description 03/07/2023 Telephone General Internal Medicine [facility] [address] [place], [place] [phone] Jose Alfredo Meyers MD [address] [place] [address] Advice Allergies Active Allergy Reactions Severity Noted Date [...] MEQ Oral Tablet Extended Release (potassium chloride ER)Indications:H ypokalemia TAKE 4 TABLETS BY MOUTH EVERY DAY 120 Tablet 5 04/23/2022 Active Additional Information Patient taking differently: Indications: in am, Reported on 09/20/2022 Escitalopram Oxalate 20 MG Oral Tablet (Lexapro)Indicat ions:Anxiety Take by mouth 1 Tablet in the morning. 90 Tablet 3 04/24/2022 Active amLODIPine Besylate 5 MG Oral Tablet (Norvasc) Take 1 Tablet by mouth in the morning. 14 Tablet 0 03/07/2023 Active Losartan Potassium 100 MG Oral Tablet (Cozaar)Indicati ons:Hypertension goal BP (blood pressure) < 140/90 Take 1 Tablet by mouth in the morning. 90 Tablet 0 03/07/2023 Active amLODIPine Besylate 5 MG Oral Tablet (Norvasc) Take 1 Tablet by mouth in the morning. 14 Tablet 0 09/15/2022 3 Discontinue d(Refill) Losartan Potassium 100 MG Oral Tablet (Cozaar)Indicati ons:Hypertension goal BP (blood pressure) < 140/90 Take 1 Tablet by mouth in the morning. 90 Tablet 0 02/09/2023 3 Discontinue d(Refill) documented as of this encounter (statuses as [...] encounter Miscellaneous Notes * Telephone Encounter - Jose Luis Jaffe CMA - 03/07/2023 10:10 AM EDT Patient states he is home now and would like meds sent to [facility] * Telephone Encounter - Jose Alfredo Meyers MD - 03/07/2023 9:21 AM EDT What pharmacy, where is he? Please pend meds needed * Telephone Encounter - TRINIDAD Sahni - 03/07/2023 8:49 AM EDT Pt is calling. Lost alfonzo on vacation. Hasn't had his BP meds since Tuesday. Needs refill [phone] documented in this encounter Plan of Treatment Upcoming Encounters Date Type Specialty Care Team Description 07/06/2023 Office Visit Internal Medicine Jose Alfredo Meyers MD [address] [place] [address], [place] [address] Health Maintenance Due Date Last Done Comments [...] 11/30/2022, 0 04/2023, 04/09/2022, Additional history exists Albumin/Creatinine Ratio [...] this encounter Medical Devices Implanted Type Area Mailing Section Clerk Device Identifier Shelf Expiration Date Model / Serial / Lot Envista [id number] Implanted:Qty: 1 on 05/24/2019 by Ino Fountain MD at OR [facility] Left: Eye BAUSCH [employer] LOMB 11/05/2021 [id number] / [id number] / [id number] Implanted:Qty: 1 on 05/31/2019 by Ino Fountain MD at OR [facility] Right: Eye 11/05/2021 [id number] / [id number] / [id number] documented as of this encounter Visit Diagnoses [...] Advance Directives occurred with: Patient Care Teams Chronic Condition Nurse Relationship Specialty Start Date End Date Jose Alfredo Meyers MD [address] [place] [address], [place] [address] PCP - General Internal Medicine 09/11/12 documented as of this encounter
--- OUTSIDE RECORDS SUMMARY | 2023-08-23 16:20 | External Medical Summary | Summary of Care ---
Author Name Unknown Organization [facility] Address [address] [place] [address] Phone [phone] Care Team Providers Care Exercise Equipment Repair Technician Name Role Phone Jose Alfredo Meyers MD Primary Care Provider + Reason for Visit * Reason Onset Date Comments Medication Refill 03/28/2023 Encounter Details Date Type Department Care Team Description 03/28/2023 Refill General Internal Medicine [facility] [address] [facility] [place] [address] Jose Alfredo Meyers MD 200 [facility] [place] [address] Hypokalemia Allergies Active Allergy Reactions Severity Noted Date Comments Pantoprazole High 04/30/2020 Swelling lips ,mouth per pt documented as of this encounter (statuses as of 03/28/2023) Medications Medication Sig Dispensed Refills Start Date End Date Status Iron-Vitamin C 100-250 MG Oral Tablet Take 1 Tab by mouth 2 times a day. 1 Tab 0 10/28/2020 Active Escitalopram Oxalate 20 MG Oral Tablet (Lexapro)Indicati ons:Anxiety Take by mouth 1 Tablet in the morning. 90 Tablet 3 04/24/2022 Active Losartan Potassium 100 MG Oral Tablet [...] 10 mEq 360 Tablet 1 03/28/2023 Active Klor-Con M10 10 MEQ Oral Tablet Extended Release (potassium chloride ER)Indications:Hy pokalemia TAKE 4 TABLETS BY MOUTH EVERY DAY 120 Tablet 5 04/23/2022 03/28/2023 Discontinued (Refill) documented as of this encounter (statuses as of 03/28/2023) Active Problems Problem Noted Date History of [...] as of this encounter (statuses as of 03/28/2023) Resolved Problems Problem Noted Date Resolved Date [...] as of this encounter (statuses as of 03/28/2023) Immunizations Name Administration Dates Next Due Seasonal Influenza, PF, 6 mo ns & Above, IM , (Flulaval) 05/26/2022,04/22/2021,04/22/2020,2018,05/01/2018 Seasonal Influenza, Quadriva lent, No Preserve, [...] encounter Miscellaneous Notes * Telephone Encounter - Fabricio Ontiveros MD - 03/28/2023 3:16 PM EDTSigned Prescriptions: Disp Refills Potassium Chloride Shelli ER 10 MEQ Oral Tab*360 Ta*1 Sig: TAKE 4 TABLETS BY MOUTH EVERY DAY Strength: 10 mEq Authorizing Provider: FABRICIO ONTIVEROS * Telephone Encounter - Oma Yao LPN - 03/28/2023 3:10 PM EDTPending Prescriptions: Disp Refills Potassium Chloride Shelli ER 10 MEQ Oral Tab*360 Ta*1 Sig: TAKE 4 TABLETS BY MOUTH EVERY DAY Strength: 10 mEq * Telephone Encounter - Estela Raymond - 03/28/2023 2:12 PM EDT 90 day Did you pend patient's preferred pharmacy and medication before forwarding?yes Pharmacy: [id number] [place] [address] Pending Prescriptions: Disp Refills Potassium Chloride Shelli ER 10 MEQ Oral Ta*120 Ta*5 Last Visit: 06/02/2022 (in office), 03/12/2022 (telemedicine) Next Visit: 07/06/2023 If no future appointments scheduled, and last appointment is greater than a year ago, please schedule patient for a follow-up appointment Last date the medication was ordered: 04/23/22 Is this request for a controlled substance?No Urine Drug Screen:No results found for this or any previous visit. Patient Phone Numbers Labs: Lab Results Component Value Date/Time CREAT 0.9 11/30/2022 08:09 AM CREAT 0.9 06/17/2020 02:41 PM POTASSIUM 4.8 11/30/2022 08:09 AM POTASSIUM 4.3 06/17/2020 02:41 PM TSH 0.12 (L) 05/07/2020 06:46 AM LDLCALC 90 04/09/2022 08:02 AM LDLCALC 86 03/05/2020 12:41 PM LDLDIRECT NOT APPLICABLE 03/05/2020 12:41 PM ALT 24 11/30/2022 08:09 AM ALT 9 (L) 06/17/2020 02:41 PM HGBA1C 5.9 (H) 04/09/2022 08:02 AM HGBA1C 5.5 03/05/2020 12:41 PM documented in this encounter Plan of Treatment Upcoming Encounters Date Type Specialty Care Team Description 07/06/2023 Office Visit Internal Medicine Jose Alfredo Meyers MD [address] [place] [address] Health Maintenance Due Date Last Done Comments [...] this encounter Medical Devices Implanted Type Area Integrated Marketing Manager Device Identifier Shelf Expiration Date Model / Serial / Lot Envista [id number] Implanted:Qty: 1 on 05/24/2019 by Ino Fountain MD at OR [facility] Left: Eye BAUSCH [employer] LOMB 11/05/2021 [id number] / [id number] / [id number] Implanted:Qty: 1 on 05/31/2019 by Ino Fountain MD at OR [facility] Right: Eye 11/05/2021 [id number] / [id number] / [id number] documented as of this encounter Visit Diagnoses Diagnosis Hypokalemia Hypopotassemia documented in this encounter Advance Directives Latest Code Status on File Code Status Date Activated Date Inactivated Comments Full Code 05/06/2020 11:49 PM 05/13/2020 9:14 PM This order reflects the patients wishes and were consensually agreed upon. Question Answer Comments Discussion of Advance Directives occurred with: Patient Care Teams Exercise Equipment Repair Technician Relationship Specialty Start Date End Date Jose Alfredo Meyers MD [address] [facility] [place] [address] PCP - General Internal Medicine 09/11/12 documented as of this encounter
--- OUTSIDE RECORDS SUMMARY | 2023-08-23 16:20 | External Medical Summary | Summary of Care ---
Author Name Unknown Organization [facility] Address [address] [place] [address] Phone [phone] Care Team Providers Care Branch Or Department Chief Librarian Name Role Phone Jose Alfredo Garber MD Primary Care Provider + Reason for Visit * Reason Comments eRx-Medication Refill Encounter Details Date Type Department Care Team Description 05/09/2023 Refill General Internal Medicine [facility] [address] [place], [place] [phone] Jose Alfredo Garber MD [address] [place], [place] [phone] Anxiety Allergies Active Allergy Reactions Severity Noted Date Comments Pantoprazole High 04/30/2020 Swelling lips ,mouth per pt documented as of this encounter (statuses as of 05/11/2023) Medications Medication Sig Dispensed Refills Start Date [...] EVERY DAY 90 Tablet 3 05/11/2023 Active Escitalopram Oxalate 20 MG Oral Tablet (Lexapro)Indicati ons:Anxiety Take by mouth 1 Tablet in the morning. 90 Tablet 3 04/24/2022 05/11/2023 Discontinued documented as of this encounter (statuses as of 05/11/2023) Active Problems Problem Noted Date History of [...] as of this encounter (statuses as of 05/11/2023) Resolved Problems Problem Noted Date Resolved Date [...] as of this encounter (statuses as of 05/11/2023) Immunizations Name Administration Dates Next Due SEASONAL [...] encounter Miscellaneous Notes * Telephone Encounter - Iliana Benjamin RPh - 05/11/2023 7:42 AM EDTSigned Prescriptions: Disp Refills Escitalopram Oxalate 20 MG Oral Tablet (Le*90 Tab*3 Sig: TAKE 1 TABLET BY MOUTH EVERY DAYAuthorizing Provider: JOSE ALFREDO GARBER User: ILIANA BENJAMIN IE documented in this encounter Plan of Treatment Upcoming Encounters Date Type Specialty Care Team Description 07/06/2023 Office Visit Internal Medicine Jose Alfredo Garber MD [address] [place] [address] Health Maintenance Due Date Last Done Comments COVID-19 Vaccine (#1) 1960 Cologuard 2007 Fecal Occult Blood Test 2007 Sigmoidoscopy 2007 Depression Screening 04/30/2021 04/30/2020 DTaP,Tdap,and Td Vaccines (2 - Td or Tdap) 03/21/2023 03/21/2013 Influenza Vaccine (FLU shot) (#1) 2023 05/26/2022, 04/22/2021, 04/22/2020, Additional history exists HbA1c 04/09/2023 04/09/2022, 03/3 , 10/27/2020, Additional history exists GFR 12/01/2023 11/30/2022, [...] this encounter Medical Devices Implanted Type Area Branch Employment Coordinator Device Identifier Shelf Expiration Date Model / Serial / Lot Envista [id number] Implanted:Qty: 1 on 05/24/2019 by Ino Fountain MD at OR [facility] Left: Eye BAUSCH & LOMB 11/05/2021 [id number] / [id number] / [id number] Implanted:Qty: 1 on 05/31/2019 by Ino Fountain MD at OR [facility] Right: Eye 11/05/2021 [id number] / [id number] / [id number] documented as of this encounter Visit Diagnoses Diagnosis Anxiety Anxiety state, unspecified documented in this encounter Advance Directives Latest Code Status on File Code Status Date Activated Date Inactivated Comments Full Code 05/06/2020 11:49 PM 05/13/2020 9:14 PM This order reflects the patients wishes and were consensually agreed upon. Question Answer Comments Discussion of Advance Directives occurred with: Patient Care Teams Branch Or Department Chief Librarian Relationship Specialty Start Date End Date Jose Alfredo Garber MD [address] [place] [address] [facility] [place], [place] [address] PCP - General Internal Medicine 09/11/12 documented as of this encounter
--- OUTSIDE RECORDS SUMMARY | 2023-08-23 16:20 | External Medical Summary | Summary of Care ---
Author Name Unknown Organization [facility] Address [address] [place] [address] Phone [phone] Care Team Providers Care Utility Repairer Name Role Phone Jose Alfredo Garber MD Primary Care Provider + Reason for Visit * Reason Onset Date Comments Medication Refill 03/14/2023 Encounter Details Date Type Department Care Team Description 03/14/2023 Refill General Internal Medicine [facility] 200 [facility] [place] [address] Jose Alfredo Garber MD [address] [place] [address] Allergies Active Allergy Reactions Severity Noted Date Comments Pantoprazole High 04/30/2020 Swelling lips ,mouth per pt documented as of this encounter (statuses as of 03/16/2023) Medications Medication Sig Dispensed Refills Start Date [...] the morning. 90 Tablet 3 03/16/2023 Active amLODIPine Besylate 5 MG Oral Tablet (Norvasc) Take 1 Tablet by mouth in the morning. 14 Tablet 0 03/07/2023 3 Discontinue d(Refill) documented as of this encounter (statuses as of 03/16/2023) Active Problems Problem Noted Date History of [...] as of this encounter (statuses as of 03/16/2023) Resolved Problems Problem Noted Date Resolved Date [...] as of this encounter (statuses as of 03/16/2023) Immunizations Name Administration Dates Next Due Seasonal [...] Miscellaneous Notes * Telephone Encounter - Jose Alfredo Garber MD - 03/16/2023 3:24 PM EDTSigned Prescriptions: Disp Refills amLODIPine Besylate 5 MG Oral Tablet (Norv*90 Tab*3 Sig: Take 1 Tablet by mouth in the morning. Authorizing Provider: JOSE ALFREDO GARBER * Telephone Encounter - Damari Brown LPN - 03/16/2023 3:18 PM EDT Pending Prescriptions: Disp Refills amLODIPine Besylate 5 MG Oral Tablet (Norv*90 Tab*3 Sig: Take 1 Tablet by mouth in the morning. * Telephone Encounter - Estela Raymond - 03/14/2023 11:48 AM EDT day Did you pend patient's preferred pharmacy and medication before forwarding?yes Pharmacy: [id number] Pending Prescriptions: Disp Refills amLODIPine Besylate 5 MG Oral Tablet (Nor*14 Tab*0 Sig: Take 1 Tablet by mouth in the morning. Last Visit: 06/02/2022 (in office), 03/12/2022 (telemedicine) [...] Visit Internal Medicine Jose Alfredo Garber MD [address] [place] [phone] Health Maintenance Due Date Last Done Comments [...] this encounter Medical Devices Implanted Type Area Semiconductor Packages Leak Tester Device Identifier Shelf Expiration Date Model / Serial / Lot Envista [id number] Implanted:Qty: 1 on 05/24/2019 by Ino Fountain MD at OR [facility] Left: Eye BAUSCH & LOMB 11/05/2021 [id number] / [id number] / [id number] Implanted:Qty: 1 on 05/31/2019 by Ino Fountain MD at OR [facility] Right: Eye 11/05/2021 [id number] / [id number] / [id number] documented as of this encounter Advance Directives Latest Code Status on File Code Status Date Activated Date Inactivated Comments Full Code 05/06/2020 11:49 PM 05/13/2020 9:14 PM This order reflects the patients wishes and were consensually agreed upon. Question Answer Comments Discussion of Advance Directives occurred with: Patient Care Teams Utility Repairer Relationship Specialty Start Date End Date Jose Alfredo Garber MD 200 [place] [address] PCP - General Internal Medicine 09/11/12 documented as of this encounter
[2023-08-23] MEDS ORDERED: ONDANSETRON INJ 2 MG/ML 2 ML VIAL IV PRN (16:57)
[2023-08-23] MEDS ORDERED: ACETAMINOPHEN 325 MG TAB PO PRN (16:57)
[2023-08-23] MEDS ORDERED: ALUMINUM/MAGNESIUM SUSP 30 ML UDC PO PRN (16:57)
[2023-08-23] MEDS: LACTATED RINGER'S 1,000 ML IV SCH (18:19)
[2023-08-23 18:26] LABS: Hematocrit (blood only) 31.1 % (42.0-52.0)
[2023-08-23] MEDS: PANTOprazole 40 MG in SYRINGE 0 ML IV SCH (21:03)
[2023-08-24 01:16] LABS: Hematocrit (blood only) 27.6 % (42.0-52.0); Hemoglobin 9.1 g/dl (14.0-18.0)
[2023-08-24] MEDS: LACTATED RINGER'S 1,000 ML IV SCH ×2 (04:19→15:23)
[2023-08-24 06:57] LABS: Basophils # (auto) 0.07 K/uL (0.00-0.20); Basophils % (auto) 0.8 %; Eosinophils # (auto) 0.22 K/uL (0.00-0.50); Eosinophils % (auto) 2.6 %; Hematocrit (blood only) 26.7 % (42.0-52.0); Hemoglobin 8.7 g/dl (14.0-18.0); Immature Granulocytes # (auto) 0.04 K/uL (0.01-0.20); Immature Granulocytes % (auto) 0.5 %; Lymphocytes # (auto) 1.73 K/uL (1.20-3.40); Lymphocytes % (auto) 20.8 %; Mean Corpuscular Hemoglobin 30.5 pg (25.0-34.0); Mean Corpuscular Hgb Conc 32.6 g/dL (32.0-36.0); Mean Corpuscular Volume 93.7 fL (80.0-100.0); Monocytes % (auto) 7.2 %; Neutrophils # (auto) 5.67 K/uL (1.40-6.50); Neutrophils % (auto) 68.1 %; Platelet Count 189 K/uL (130-400); RDW Coefficient of Variation 13.1 % (11.5-14.5); RDW Standard Deviation 44.8 fL (36.4-46.3); Red Blood Count 2.85 M/uL (4.70-6.10); White Blood Count 8.33 K/ul (4.8-10.8)
[2023-08-24 07:17] LABS: Albumin Globulin Ratio 1.4 (0.9-2); Albumin Level 3.1 gm/dl (3.4-5.0); BUN Creatinine Ratio 41.3 (10-20); Bilirubin,Total 0.4 mg/dl (0.2-1.0); Calcium 8.6 mg/dl (8.6-10.3); Creatinine Clr Calc Pharmacy 109.5 ml/min; Est GFR (African American) 103.7 ml/min; Est GFR (Non-African American) 89.5 ml/min; Globulin 2.2 gm/dl (2.5-4.0); Magnesium 1.9 mg/dl (1.7-2.4); Potassium 3.8 mmol/L (3.5-5.1); Total Protein 5.3 gm/dl (6.0-8.3)
[2023-08-24 08:22] LABS: Estimated Average Glucose 105 mg/dl; Hemoglobin A1C 5.3 % (4.5-5.6)
[2023-08-24] MEDS ORDERED: ePHEDrine sulfate 50 MG/ML AMP IV PRN (08:41)
[2023-08-24] MEDS ORDERED: ATROPINE SULFATE 0.1 MG/ML 10ML SYR IV PRN (08:41)
--- NOTE | 2023-08-24 08:41 | Anesthesiology Consultation ---
Date of Service August 24, 2023 Assessment & Plan Chart Review Chart Review: Acceptable Risk for Surgery and Patient NOT seen in Pre Admission Testing Consults Requested none ASA ASA3 Proposed Anesthesia Anesthesia Type: MAC Risk / Benefits Reviewed With: PT / POA / Parent / Guardian, Accepts Plan and Informed Consent Obtained History Surgery Operation Date: 08/24/23 16:30 Proposed Procedures p Esophagogastroduodenoscopy Dr Suarez - Damion Suarez MD Height/Weight Height: 6 ft 1 in Weight: 109.6 kg Allergies Allergy/AdvReac Type Severity Reaction Status Date / Time sucralfate AdvReac Mild Vomiting Verified 08/23/23 14:16 Medications Home Medications Medication Instructions Recorded Confirmed Last Taken amlodipine 5 mg tablet 5 mg PO DAILY 08/23/23 08/23/23 Unknown escitalopram oxalate 20 mg tablet 20 mg PO DAILY 08/23/23 08/23/23 Unknown iron,carbonyl 65 mg-vitamin C 125 1 tab PO BID 08/23/23 08/23/23 Unknown mg tablet,delayed release (Vitron-C) losartan 100 mg tablet 100 mg PO DAILY 08/23/23 08/23/23 Unknown Active Medications Generic Name Dose Route Start Last Admin Trade Name Freq PRN Reason Stop Dose Admin Pantoprazole Sodium 40 mg/ 10 mls @ 5 mls/min 08/23/23 21:00 08/23/23 21:03 Syringe IV 09/22/23 20:59 5 mls/min BID ANDREW Administration Lactated Ringer's 1,000 mls @ 100 mls/hr 08/23/23 16:57 08/24/23 04:19 Lr IV 09/22/23 16:56 100 mls/hr .Q10H ANDREW Administration NPO Date Last Intake of Fluids: 08/23/23 Time Last Intake of Fluids: 07:00 Date Last Intake of Solids: 08/23/23 Time Last Intake of Solids: 07:00 Past Medical History Medical History Depression with anxiety HTN (hypertension) Iron deficiency anemia Exercise / Class Metabolic Activity II 4-5 Yardwork/Stairs/Walk up hill Past Family History Family History Father Coronary heart disease, Onset Age: 50 Grandfather (Paternal) Coronary heart disease, Onset Age: 50 Denies family history of Colon cancer Blood dyscrasia Past Surgical History Surgical History H/O cataract extraction History of lumbar surgery L4-5 discectomy History of colonoscopy 2012 History of elbow surgery Secondary to fracture History of esophagogastroduodenoscopy (EGD) 2012, negative for ulcer and celiac and H. pylori Past Anesthesia History No Hx of Anesthesia Complications and No Family Hx of Anesthesia Complications History of PONV No Hx of PONV and No Hx of Motion Sickness Social History Smoking Status: Never smoker Hx Alcohol Use: No Hx Substance Use: No Physical Exam Vital Signs Last Vital Signs Temp 36.5 C 08/24/23 08:33 Pulse 83 08/24/23 08:33 Resp 16 08/24/23 08:33 BP 131/58 L 08/24/23 08:33 Pulse Ox 95 08/24/23 08:33 O2 Del Method Room Air 08/24/23 08:33 O2 Flow Rate 1.5 08/23/23 16:15 Constitutional + obese; no acute distress ENMT Mouth: no dentition abnormality Thyromental Distance: > or= 3.5 Finger Breadths Mallampati Class: II Neck normal visual inspection, trachea midline and + facial hair; neck extension not limited Respiratory normal respiratory effort Auscultation: lungs clear to auscultation bilaterally Cardiovascular Rate/Rhythm: regular rate and regular rhythm Heart Sounds: no murmur Vessels: no carotid bruit Musculoskeletal Spine: normal cervical ROM and no pain with cervical ROM Extremities: extremities normal to inspection; full ROM of extremities Neurologic moves all extremities Motor/Sensory: no sensory deficit Psychiatric Orientation: alert and oriented x 3 Testing Laboratory Results 08/24/23 06:12 08/24/23 06:12 PT 12.0 Seconds (9.0-12.0) 08/23/23 12:51 INR 1.1 (0.9-1.1) 08/23/23 12:51 APTT 24 Seconds (21-31) 08/23/23 12:51 Hemoglobin A1c 5.3 % (4.5-5.6) 08/24/23 06:12 Blood Type O Positive 08/23/23 12:43 Antibody Screen NEGATIVE 08/23/23 12:43 Electrocardiogram Date: 08/23/23 Findings: + NSR @ (@ 77 w/ frequent PVC's) Chest X-Ray Date: 08/23/23 Findings: + NAD Echocardiogram Date: 02/27/20 EF: 55% LV Function: normal RWMA: + none Other Findings: + LVH (mild) Valvular Disease: + no significant valvular disease mod. Ao root dilation
--- NOTE | 2023-08-24 08:53 | Gastrointestinal Consultation ---
Date of Consultation August 24, 2023 Assessment & Plan (1) Anemia: (2) Hematemesis: (3) Melena: Plan EGD today by Dr. Suarez. Further recommendations to follow. Supervising Physician Co-Signing Physician Notes I performed a history and physical examination of the patient today, including specifically on physical exam - soft abdomen. I have discussed the patient's management with the advanced practitioner. Please refer to the nurse practitioner's note for the documented findings and plan of care. EGD Patient was explained in detail regarding risks, benefits, limitations and alternatives of the above endoscopic procedure. Risks of intravenous sedation used for procedure were also explained. Risks include, but not limited to perforation, bleeding, infection, respiratory distress, cardiac arrest and . Patient is also aware about the possibility of missed lesion. Patient's questions were answered. The patient verbalized understanding the information and agreed to undergo the procedure. History of Present Illness Reason for Consultation: GIB Requesting Physician: Skylar Correa PA-C Attending Physician: Pura Ojeda MD History of Present Illness Mr. Brasher is a 63 yr old male pt of Dr. Meyers w a hx of HTN shireen has been taking about 6 ibuprofen (for eye strain/headaches)/day, but not every day, over the past year or so. Yesterday, he passed one black loose BM and vomited black emesis once and felt dizzy/fainted and was brought to the ED where Hb was 10.8 and further decreased to 8.7 this morning (no transfusion). This morning, he is awake, alert, oriented, hemodynamically stable. He has not had abdominal pain. Allergies Allergy/AdvReac Type Severity Reaction Status Date / Time sucralfate AdvReac Mild Vomiting Verified 08/23/23 14:16 Home Medications Medication Instructions Recorded Confirmed Type amlodipine 5 mg tablet 5 mg PO DAILY 08/23/23 08/23/23 History escitalopram oxalate 20 mg tablet 20 mg PO DAILY 08/23/23 08/23/23 History iron,carbonyl 65 mg-vitamin C 125 1 tab PO BID 08/23/23 08/23/23 History mg tablet,delayed release (Vitron-C) losartan 100 mg tablet 100 mg PO DAILY 08/23/23 08/23/23 History Patient History Medical History (Updated 08/24/23 @ 08:58 by NOY Green) Depression with anxiety HTN (hypertension) Iron deficiency anemia Surgical History H/O cataract extraction History of lumbar surgery L4-5 discectomy History of colonoscopy 2012 History of elbow surgery Secondary to fracture History of esophagogastroduodenoscopy (EGD) 2012, negative for ulcer and celiac and H. pylori Family History Father Coronary heart disease, Onset Age: 50 Grandfather (Paternal) Coronary heart disease, Onset Age: 50 Denies family history of Colon cancer Blood dyscrasia Social History Smoking Status: Never smoker Hx Alcohol Use: No Hx Substance Use: No Preferred Language: Faroese Communication Ability: Effective Office Services Clerk Required: No Beliefs That Will Affect Care: None Current Living Situation: Spouse current occupational status: employed Other Information That Helps Us Care for You: No Feels Safe at Home: Yes Safety Concerns: Feels Safe At This Time Assistive Devices: None Review of Systems Review of Systems: ROS: Gen: + dizzy, SOB yesterday. No, fevers, weight loss Eyes: No eye redness, or pain, no recent vision changes Resp: No SOB, no cough Cardio: No palpitations/irregular beats, no chest pain GI: As per HPI, otherwise (-) : Denies pain on urination Skin: No jaundice, itching or new rashes Physical Exam Constitutional: WD/WN, vitals as above Eyes: PERRL, conjunctivae normal, anicteric sclerae Neck: trachea midline, no thyromegaly Respiratory: normal respiratory effort, lungs clear to auscultation Cardiovascular: RRR, no murmur, no edema Gastrointestinal (Abdomen): normal bowel sounds, soft, nontender, no hepatosplenomegaly Musculoskeletal: no cyanosis or clubbing, extremities motor strength 5/5 Skin: no rashes, warm and dry Neurologic: PERRL, EOMI, accommodation nl, no face palsy, no dysarthria Psychiatric: A+Ox3, euthymic affect Lymphatic: no cervical or axillary lymphadenopathy Results & Data Vital Signs (Past 12 Hours) Vital Signs Temp Pulse Pulse Resp BP Pulse Ox O2 Del Method 08/24/23 08:33 36.5 C 83 16 131/58 L 95 Room Air 08/24/23 08:01 36.9 C 87 18 130/72 97 Room Air 08/24/23 07:34 88 08/24/23 03:20 37.1 C 87 16 112/60 93 Room Air 08/24/23 00:40 37.3 C 94 H 18 113/63 95 Room Air 08/23/23 21:54 90 Laboratory Results WBC 8.3, Hb 8.7, Hct 26.7, plts 189, Na 140, K 3.8, Cl 111, CO2 25, BUN 38, Cr 0.9, glucose 107 Diagnostic Findings CTAP w IV 08/23/23: 1. Fluid-filled nondistended colon. This suggests a gastroenteritis/diarrheal illness. 2. No evidence for bowel obstruction. 3. Normal appendix. 4. Bilateral nephrolithiasis. No hydronephrosis. 5. Cholelithiasis. 6. Mild circumferential thickening of the distal esophagus. This favors a mild esophagitis. 7. Colonic diverticulosis. No evidence for acute diverticulitis. 8. Additional findings as described above. (1) Anemia Anemia type: unspecified type Qualified Code(s): D64.9 - Anemia, unspecified (2) Hematemesis Nausea presence: with nausea Qualified Code(s): K92.0 - Hematemesis
[2023-08-24] MEDS ORDERED: fentaNYL citrate PF 100 MCG/2 ML VIAL ONE (09:35)
[2023-08-24] MEDS ORDERED: PROPOFOL IV EMULSION 10 MG/ML 20 ML VIAL IV ONE (10:03)
[2023-08-24] MEDS ORDERED: ONDANSETRON INJ 2 MG/ML 2 ML VIAL ONE (10:03)
[2023-08-24] MEDS ORDERED: LIDOCAINE 2% 2 ML VIAL/AMP(20MG/ML) INFIL ONE (10:03)
[2023-08-24] MEDS ORDERED: KETAMINE HCL 10MG/ML SYR ONE (10:04)
--- NOTE | 2023-08-24 10:07 | GI REPORT ---
Patient Name: Henry Brasher Procedure Date: 08/24/2023 9:19 AM Date of : 1960 Admit Type: Inpatient Age: 63 Gender: Male Attending MD: Damion Suarez MD, Procedure: Upper GI endoscopy Providers: Damion Suarez MD Referring MD: Pura Ojeda Md Indications: Hematemesis Medicines: Propofol per Anesthesia Complications: No immediate complications. Estimated Blood Loss: Estimated blood loss: none. Procedure: Pre-Anesthesia Assessment: - Prior to the procedure, a History and Physical was performed, and patient medications, allergies and sensitivities were reviewed. The patient's tolerance of previous anesthesia was reviewed. - The risks and benefits of the procedure and the sedation options and risks were discussed with the patient. All questions were answered and informed consent was obtained. - Patient identification and proposed procedure were verified prior to the procedure by the physician and the nurse. The procedure was verified in the procedure room. - Pre-procedure physical examination revealed no contraindications to sedation. After obtaining informed consent, the endoscope was passed under direct vision. Throughout the procedure, the patient's blood pressure, pulse, and oxygen saturations were monitored continuously. The Scope was introduced through the mouth, and advanced to the second part of duodenum. The upper GI endoscopy was accomplished without difficulty. The patient tolerated the procedure well. Findings: The examined esophagus was normal. One non-bleeding cratered gastric ulcer with a visible vessel was found at the pylorus. The lesion was 20 mm in largest dimension. Coagulation for hemostasis using bipolar probe was successful. The ulcer was very deep hence decision made to close the entire ulcer. Six hemostatic clips were successfully placed (MR conditional) on an endoloop in a pursestring fashion. Clip designer architect: [employer]. The duodenal bulb and second portion of the duodenum were normal. Large Periampullary diverticulum seen. Impression: - Normal esophagus. - Non-bleeding deeply cratered gastric ulcer with a visible vessel. Treated with bipolar cautery. Entire ulcer was closed with clips and loop (pursestring). - Normal duodenal bulb and second portion of the duodenum. - No specimens collected. Recommendation: - [facility]. - Clear liquid diet for 2 days, then advance as tolerated to advance diet as tolerated. - No aspirin, ibuprofen, naproxen, or other non-steroidal anti-inflammatory drugs. - Use a proton pump inhibitor IV BID for 2 days then PO BID 40 mg for 3 months. - Repeat upper endoscopy in 3 months to check healing. Damion Suarez MD 08/24/2023 10:07:38 AM This report has been signed electronically. Note Initiated On: 08/24/2023 9:19 AM Number of Addenda: 0 I attest to the content of the Intraoperative Record and orders documented therein, exceptions below {[id number]}
--- NOTE | 2023-08-24 10:22 | Anesthesiology Progress Note ---
Date of Service August 24, 2023 Anesthesia Post Procedure Vital Signs Vital Signs: Temp Pulse Pulse Pulse Resp BP BP 08/24/23 10:00 81 16 133/64 08/24/23 08:33 36.5 C 83 16 131/58 L 08/24/23 08:01 36.9 C 87 18 130/72 08/24/23 07:34 88 08/24/23 03:20 37.1 C 87 16 112/60 08/24/23 00:40 37.3 C 94 H 18 113/63 08/23/23 21:54 90 08/23/23 19:15 37.0 C 84 18 08/23/23 18:13 84 08/23/23 16:57 36.7 C 90 20 08/23/23 16:15 82 21 114/58 L 08/23/23 16:00 80 15 111/64 08/23/23 15:45 79 18 112/64 08/23/23 15:37 82 16 103/60 08/23/23 15:30 87 23 08/23/23 15:15 79 22 117/58 L 08/23/23 15:00 80 16 08/23/23 12:49 96 H 19 08/23/23 12:45 97 H 08/23/23 12:29 97 H 12 99/60 L BP Pulse Ox O2 Del Method O2 Flow Rate 08/24/23 10:00 100 Nasal Cannula 5 08/24/23 08:33 95 Room Air 08/24/23 08:01 97 Room Air 08/24/23 07:34 08/24/23 03:20 93 Room Air 08/24/23 00:40 95 Room Air 08/23/23 21:54 08/23/23 19:15 114/72 97 Room Air 08/23/23 18:13 08/23/23 16:57 108/59 L 93 Room Air 08/23/23 16:15 99 Nasal Cannula 1.5 08/23/23 16:00 99 Nasal Cannula 1.5 08/23/23 15:45 99 Nasal Cannula 1.5 08/23/23 15:37 98 Nasal Cannula 1.5 08/23/23 15:30 92 Nasal Cannula 1.5 08/23/23 15:15 100 Nasal Cannula 1.5 08/23/23 15:00 96/59 L 100 Nasal Cannula 1.5 08/23/23 12:49 99 Room Air 08/23/23 12:45 08/23/23 12:29 99 Room Air Transfer of Care Handoff Completed per policy Notes Mental Status: alert / awake / arousable Patient Amnestic to Procedure: Yes Nausea / Vomiting: adequately controlled Pain: adequately controlled Airway Patency, RR, SpO2: stable & adequate BP & HR: stable & adequate Hydration State: stable & adequate Anesthetic Complications: no major complications apparent
[2023-08-24] MEDS: PANTOprazole 40 MG in SYRINGE 0 ML IV SCH ×2 (10:51→20:44)
[2023-08-24 12:54] LABS: Hematocrit (blood only) 25.2 % (42.0-52.0); Hemoglobin 8.3 g/dl (14.0-18.0)
--- NOTE | 2023-08-24 15:28 | Hospitalist Progress Note ---
Date of Service August 24, 2023 Assessment & Plan (1) Symptomatic anemia: (2) Hematemesis: (3) GIB (gastrointestinal bleeding): (4) HTN (hypertension): Plan Mr. Brasher is a 63-year-old male who has a significant past medical history of HTN, prediabetes, diastolic dysfunction, history of esophagitis, iron deficiency anemia, depression with anxiety and history of osteomyelitis who presents to ED secondary to syncope, bloody vomit and diarrhea x 1 day. Patient admitted on 08/23 for acute blood loss anemia 2/2 UGIB. Patient underwent EGD on 08/23 which revealed large ulcer now s/p hemastatsis and hemostatic clip closure #Syncope - likely 2/2 to hypovolemia in setting of GIB and hypotension #Acute blood loss anemia 2/2 Upper GIB Continue to monitor in PCU hgb in 06/2023 15 per outpt chart review iron studies at that time revealed iron 78, ferritin 92, TIBC 349 and TSAT 22 Does admit to NSAID use Per outpatient record documented allergy to pantoprazole; however, after further discussion with patient he states that he was "allergic" to Sucralfate which caused him to vomit GI consulted -s/p EGD with 20mm ulcer -Continue IV PPI BID x 48 hours, discharge on 40mg Protonix POBID x 90days -Continue to trend CBC q 12 hours, transfuse less than 7 -Obtain anemia labs in anemia to aid in optimizing rbc store -B12, iron panel, folate #HTN bp on lower side, likely 2/2 hypovolemia hold losartan and amlodipine #Iron Deficiency anemia on vitron C as outpt Anemia panel ordered for am #Depression w anxiety mood stable continue escitalopram DVT ppx: SCDS for now FULL CODE PCP: Dr. Meyers Dispo: PCU Admission and Anticipated Discharge Date Admission Date: August 23, 2023 Subjective NAEO Hgb from 10.8 on admission to 8.3 this am GI completed scope--deep ulcer with visible vessel located, appox 20mm, s/p coag and hemoclips with endoloop closure Tolerating clears at this time, reports weakness Physical Exam Constitutional: WD/WN, vitals as above Respiratory: normal respiratory effort, lungs clear to auscultation Gastrointestinal (Abdomen): normal bowel sounds, soft, nontender, no hepatosplenomegaly Musculoskeletal: no cyanosis or clubbing, extremities motor strength 12/10 Results & Data Results & Data Vital Signs (Past 12 Hours) Vital Signs Temp Pulse Pulse Pulse Resp BP Pulse Ox 08/24/23 11:40 36.4 C L 76 16 145/72 H 93 08/24/23 10:30 76 16 127/57 L 99 08/24/23 10:15 75 16 131/62 100 08/24/23 10:00 81 16 133/64 100 08/24/23 08:33 36.5 C 83 16 131/58 L 95 08/24/23 08:01 36.9 C 87 18 130/72 97 08/24/23 07:34 88 O2 Del Method O2 Flow Rate 08/24/23 11:40 Room Air 08/24/23 10:30 Room Air 08/24/23 10:15 Nasal Cannula 5 08/24/23 10:00 Nasal Cannula 5 08/24/23 08:33 Room Air 08/24/23 08:01 Room Air 08/24/23 07:34 Laboratory Results Short CBC 08/23/23 08/24/23 08/24/23 Range/Units 17:57 00:59 06:12 WBC 8.33 (4.8-10.8) K/ul Hgb 10.0 L 9.1 L 8.7 L (14.0-18.0) g/dl Hct 31.1 L 27.6 L 26.7 L (42.0-52.0) % Plt Count 189 (130-400) K/uL 08/24/23 Range/Units 12:19 WBC (4.8-10.8) K/ul Hgb 8.3 L (14.0-18.0) g/dl Hct 25.2 L (42.0-52.0) % Plt Count (130-400) K/uL BMP 08/24/23 06:12 Sodium 140 Potassium 3.8 Chloride 111 H Carbon Dioxide 25 BUN 38 H Creatinine 0.92 Glucose 107 H Calcium 8.6 Liver Function 08/24/23 Range/Units 06:12 Total Bilirubin 0.4 (0.2-1.0) mg/dl AST 9 L (13-39) U/L ALT 11 (7-52) U/L Alkaline Phosphatase 35 (34-104) U/L Albumin 3.1 L (3.4-5.0) gm/dl Medications Administered Home Medications Medication Instructions Recorded Confirmed Last Taken amlodipine 5 mg tablet 5 mg PO DAILY 08/23/23 08/23/23 Unknown escitalopram oxalate 20 mg tablet 20 mg PO DAILY 08/23/23 08/23/23 Unknown iron,carbonyl 65 mg-vitamin C 125 1 tab PO BID 08/23/23 08/23/23 Unknown mg tablet,delayed release (Vitron-C) losartan 100 mg tablet 100 mg PO DAILY 08/23/23 08/23/23 Unknown Active Medications Generic Name Dose Route Start Last Admin Trade Name Freq PRN Reason Stop Dose Admin Pantoprazole Sodium 40 mg/ 10 mls @ 5 mls/min 08/23/23 21:00 08/24/23 10:51 Syringe IV 09/22/23 20:59 5 mls/min BID ANDREW Administration Ondansetron HCl 4 mg 08/23/23 16:57 08/24/23 12:04 Ondansetron Inj 2 Mg/Ml 2 Ml Vial IV 09/22/23 16:56 4 mg Q6H PRN Administration Nausea
[2023-08-24] MEDS: ESCITALOPRAM OXALATE 20 MG TAB PO SCH (15:32)
[2023-08-25 06:49] LABS: Hematocrit (blood only) 22.8 % (42.0-52.0); Hemoglobin 7.5 g/dl (14.0-18.0); Mean Corpuscular Hemoglobin 30.4 pg (25.0-34.0); Mean Corpuscular Hgb Conc 32.9 g/dL (32.0-36.0); Mean Corpuscular Volume 92.3 fL (80.0-100.0); Platelet Count 146 K/uL (130-400); RDW Coefficient of Variation 12.9 % (11.5-14.5); RDW Standard Deviation 42.9 fL (36.4-46.3); Red Blood Count 2.47 M/uL (4.70-6.10)
[2023-08-25 07:16] LABS: BUN Creatinine Ratio 15.8 (10-20); Calcium 8.5 mg/dl (8.6-10.3); Creatinine Clr Calc Pharmacy 132.9 ml/min; Est GFR (African American) 114.1 ml/min; Est GFR (Non-African American) 98.5 ml/min
[2023-08-25 07:30] LABS: Folate (Folic Acid),Ser orPlas 19.38 ng/ml (>5.38)
[2023-08-25 07:34] LABS: Ferritin 43.2 ng/ml (8-388)
[2023-08-25] MEDS: PANTOprazole 40 MG in SYRINGE 0 ML IV SCH ×2 (08:18→20:47)
[2023-08-25] MEDS: ESCITALOPRAM OXALATE 20 MG TAB PO SCH (08:19)
[2023-08-25] MEDS ORDERED: IRON SUCROSE 300 MG in SODIUM CHLORIDE 0.9% 250 ML IV ONE (08:30)
--- NOTE | 2023-08-25 11:29 | Gastroenterology Progress Note ---
Date of Service August 25, 2023 Assessment & Plan (1) Gastric ulcer: Plan Adv to full liquids today for lunch. Cont IV BID PPI. If no rebleed then tomorrow change to po and continue po BID until recheck EGD in 3 months. Our office will call to arrnage. GI will sign off. Recall if questions/new symptoms or signs of rebleeding. Admission and Anticipated Discharge Date Admission Date: August 23, 2023 Supervising Physician Co-Signing Physician Notes I performed a history and physical examination of the patient today, including specifically on physical exam - soft abdomen. I have discussed the patient's management with the advanced practitioner. Please refer to the nurse practitioner's note for the documented findings and plan of care. Subjective 63 yr old male who presented w melena and underwent EGD w a large, deeply cratered gastric ulcer that was treated yesterday during EGD w cautery, clipped, closed w pursestring. Hb7.5 (10 on arrival, 8.3 yesterday). Today feels well. BUN normal. No BMs since prior to EGD. Med: BID PPI Diet: clear liquids Review of Systems 2 Review of Systems: ROS: in past 24 hrs Gen: No dizziness, no SOB. No, fevers, weight loss Eyes: No eye redness, or pain, no recent vision changes Resp: No SOB, no cough Cardio: No palpitations/irregular beats, no chest pain GI: As per HPI, otherwise (-) : Denies pain on urination Skin: No jaundice, itching or new rashes Physical Exam 2 Constitutional: WD/WN, vitals as above Eyes: PERRL, conjunctivae normal, anicteric sclerae ENMT: external ear and nose normal, oropharynx normal Neck: trachea midline, no thyromegaly Respiratory: normal respiratory effort, lungs clear to auscultation Cardiovascular: RRR, no murmur, no edema Gastrointestinal (Abdomen): normal bowel sounds, soft, nontender, no hepatosplenomegaly Musculoskeletal: no cyanosis or clubbing, extremities motor strength 5/5 Skin: no rashes, warm and dry Neurologic: PERRL, EOMI, accommodation nl, no face palsy, no dysarthria Psychiatric: A+Ox3, euthymic affect Lymphatic: no cervical or axillary lymphadenopathy Results & Data Vital Signs (Past 12 Hours) Vital Signs Temp Pulse Pulse Resp BP Pulse Ox O2 Del Method 08/25/23 08:00 84 08/25/23 07:44 36.5 C 87 18 150/69 H 97 Room Air 08/25/23 03:43 36.6 C 78 18 139/67 93 Room Air Laboratory Results 08/25/23 05:48 08/25/23 05:48
--- NOTE | 2023-08-25 13:50 | History & Physical Report ---
Date of Service August 25, 2023 Assessment & Plan (1) Symptomatic anemia: (2) Hematemesis: (3) GIB (gastrointestinal bleeding): (4) HTN (hypertension): Plan Mr. Brasher is a 63-year-old male who has a significant past medical history of HTN, prediabetes, diastolic dysfunction, history of esophagitis, iron deficiency anemia, depression with anxiety and history of osteomyelitis who presents to ED secondary to syncope, bloody vomit and diarrhea x 1 day. Patient admitted on 08/23 for acute blood loss anemia 2/2 UGIB. Patient underwent EGD on 08/23 which revealed large ulcer now s/p hemastatsis and hemostatic clip closure #Syncope - likely 2/2 to hypovolemia in setting of GIB and hypotension #Acute blood loss anemia 2/2 Upper GIB Continue to monitor in PCU hgb in 06/2023 15 per outpt chart review iron studies at that time revealed iron 78, ferritin 92, TIBC 349 and TSAT 22 Does admit to NSAID use Per outpatient record documented allergy to pantoprazole; however, after further discussion with patient he states that he was "allergic" to Sucralfate which caused him to vomit GI consulted -s/p EGD with 20mm ulcer -Continue IV PPI BID x 48 hours, discharge on 40mg Protonix POBID x 90days -Continue to trend CBC q 12 hours, transfuse less than 7 -Obtain anemia labs in anemia to aid in optimizing rbc store -B12, iron panel, folate #HTN bp on lower side, likely 2/2 hypovolemia hold losartan and amlodipine #Iron Deficiency anemia on vitron C as outpt Anemia panel ordered for am #Depression w anxiety mood stable continue escitalopram DVT ppx: SCDS for now FULL CODE PCP: Dr. Meyers Dispo: PCU Admission and Anticipated Discharge Date Admission Date: August 23, 2023 History of Present Illness Primary Care Provider: Jose Alfredo Meyers MD Allergies Allergy/AdvReac Type Severity Reaction Status Date / Time sucralfate AdvReac Mild Vomiting Verified 08/23/23 14:16 Home Medications Medication Instructions Recorded Confirmed Type amlodipine 5 mg tablet 5 mg PO DAILY 08/23/23 08/23/23 History escitalopram oxalate 20 mg tablet 20 mg PO DAILY 08/23/23 08/23/23 History iron,carbonyl 65 mg-vitamin C 125 1 tab PO BID 08/23/23 08/23/23 History mg tablet,delayed release (Vitron-C) losartan 100 mg tablet 100 mg PO DAILY 08/23/23 08/23/23 History Past Med/Surg History Medical History (Updated 08/25/23 @ 11:27 by NOY Green) Depression with anxiety HTN (hypertension) Iron deficiency anemia Surgical History H/O cataract extraction History of lumbar surgery L4-5 discectomy History of colonoscopy 2012 History of elbow surgery Secondary to fracture History of esophagogastroduodenoscopy (EGD) 2012, negative for ulcer and celiac and H. pylori Family History Father Coronary heart disease, Onset Age: 50 Grandfather (Paternal) Coronary heart disease, Onset Age: 50 Denies family history of Colon cancer Blood dyscrasia Social History Smoking Status: Never smoker Hx Alcohol Use: No Hx Substance Use: No Preferred Language: Kinyarwanda Communication Ability: Effective Director Of Manufacturing Required: No Beliefs That Will Affect Care: None Current Living Situation: Spouse current occupational status: employed Other Information That Helps Us Care for You: No Feels Safe at Home: Yes Safety Concerns: Feels Safe At This Time Assistive Devices: None Results & Data Results & Data Vital Signs (Past 12 Hours) Vital Signs Temp Pulse Pulse Resp BP Pulse Ox O2 Del Method 08/25/23 11:42 36.8 C 77 20 157/77 H 97 Room Air 08/25/23 08:00 84 08/25/23 07:44 36.5 C 87 18 150/69 H 97 Room Air 08/25/23 03:43 36.6 C 78 18 139/67 93 Room Air Code Status & VTE Plan VTE Prophylaxis Plan VTE Prophylaxis will be ordered: No Reason for no VTE drug order: Contraindicated
--- NOTE | 2023-08-25 13:53 | Hospitalist Progress Note ---
Date of Service August 25, 2023 Assessment & Plan (1) Symptomatic anemia: (2) Hematemesis: (3) GIB (gastrointestinal bleeding): (4) HTN (hypertension): Plan Mr. Brasher is a 63-year-old male who has a significant past medical history of HTN, prediabetes, diastolic dysfunction, history of esophagitis, iron deficiency anemia, depression with anxiety and history of osteomyelitis who presents to ED secondary to syncope, bloody vomit and diarrhea x 1 day. Patient admitted on 08/23 for acute blood loss anemia 2/2 UGIB. Patient underwent EGD on 08/23 which revealed large ulcer now s/p hemostasis and hemostatic clip closure #Syncope - likely 2/2 to hypovolemia in setting of GIB and hypotension #Acute blood loss anemia 2/2 Upper GIB #Acute gastric ulcer s/p hemostasis #Iron deficiency Continue to monitor in PCU hgb in 06/2023 15 per outpt chart review iron studies at that time revealed iron 78, ferritin 92, TIBC 349 and TSAT 22 Does admit to NSAID use Per outpatient record documented allergy to pantoprazole; however, after further discussion with patient he states that he was "allergic" to Sucralfate which caused him to vomit GI consulted -s/p EGD with 20mm ulcer -Continue IV PPI BID and ensure no bleeding--if hgb stable with transition to PO and discharge on 40mg Protonix POBID x 90days -Continue to trend CBC daily, transfuse less than 7 -Obtain anemia labs in anemia to aid in optimizing rbc store -B12 stable 407, iron panel with iron 33/ferritin 43.2, folate stable 19.38 #HTN bp on lower side, likely 2/2 hypovolemia Resume low dose losartan and reintroduce home medications #Iron Deficiency anemia on vitron C as outpt Iron sucrose today #Depression w anxiety mood stable continue escitalopram DVT ppx: SCDS for now FULL CODE PCP: Dr. Meyers Dispo: PCU Admission and Anticipated Discharge Date Admission Date: August 23, 2023 Subjective 63 yr old male who presented w [facility] and underwent EGD w a large, deeply cratered gastric ulcer that was treated yesterday during EGD w cautery, clipped, closed w pursestring. Hb7.5 (10 on arrival, 8.3 yesterday). Today feels well. BUN normal. No BMs since prior to EGD. Med: BID PPI Diet: clear liquids Physical Exam Constitutional: WD/WN, vitals as above Respiratory: normal respiratory effort, lungs clear to auscultation Gastrointestinal (Abdomen): normal bowel sounds, soft, nontender, no hepatosplenomegaly Musculoskeletal: no cyanosis or clubbing, extremities motor strength 5/5 Results & Data Results & Data Vital Signs (Past 12 Hours) Vital Signs Temp Pulse Pulse Resp BP Pulse Ox O2 Del Method 08/25/23 11:42 36.8 C 77 20 157/77 H 97 Room Air 08/25/23 08:00 84 08/25/23 07:44 36.5 C 87 18 150/69 H 97 Room Air 08/25/23 03:43 36.6 C 78 18 139/67 93 Room Air
[2023-08-25] MEDS: LOSARTAN POTASSIUM 50 MG TAB PO SCH (15:49)
[2023-08-26 06:57] LABS: Hematocrit (blood only) 23.8 % (42.0-52.0); Hemoglobin 8.1 g/dl (14.0-18.0); Mean Corpuscular Hemoglobin 30.9 pg (25.0-34.0); Mean Corpuscular Volume 90.8 fL (80.0-100.0); Mean Platelet Volume 10.6 fL (9.4-12.4); Platelet Count 172 K/uL (130-400); RDW Standard Deviation 42.3 fL (36.4-46.3); Red Blood Count 2.62 M/uL (4.70-6.10); White Blood Count 6.63 K/ul (4.8-10.8)
[2023-08-26 07:10] LABS: Calcium 8.9 mg/dl (8.6-10.3); Creatinine Clr Calc Pharmacy 151.9 ml/min; Est GFR (African American) 120.2 ml/min; Est GFR (Non-African American) 103.7 ml/min; Potassium 3.7 mmol/L (3.5-5.1)
[2023-08-26] MEDS ORDERED: PANTOprazole 40 MG TAB PO SCH (09:00)
[2023-08-26] MEDS: ESCITALOPRAM OXALATE 20 MG TAB PO SCH (09:02)
[2023-08-26] MEDS: LOSARTAN POTASSIUM 50 MG TAB PO SCH (09:02)
--- NOTE | 2023-08-26 10:59 | Electrocardiogram Report ---
Test Reason : Blood Pressure : / mmHG Vent. Rate : 075 BPM Atrial Rate : 075 BPM P-R Int : 154 ms QRS Dur : 096 ms QT Int : 414 ms P-R-T Axes : 063 002 041 degrees QTc Int : 462 ms Sinus rhythm with frequent Premature ventricular complexes Poor R wave progression, consider anterior WI vs. lead placement vs. LVH When compared with ECG of 29-APR-2020 09:25, Premature ventricular complexes are now Present Confirmed by Dm Bah ([id number]) on 08/26/2023 10:59:37 AM Referred By: REFERRED SELF Confirmed By:Dm Bah
--- NOTE | 2023-08-26 13:11 | Discharge Summary ---
Discharge Summary Date of Service August 26, 2023 Notes For Next Care Provider Consider further Iron supplementation via IV given recent large gastric ulcer and reported history of discomfort with iron pills Medication Changes From Visit -Protonix 40mg BID x 90 days -Hold iron oral given possibility of iron-pill gastritis (reports intolerance previously) -S/p Iron Sucrose 08/25 -Avoid NSAIDS Admission HPI Per Admitting Provider This is a 63-year-old male who has a significant past medical history of HTN, prediabetes, diastolic dysfunction, history of esophagitis, iron deficiency anemia, depression with anxiety and history of osteomyelitis who presents to ED secondary to syncope, bloody vomit and diarrhea x 1 day. Sx started 3 days ago. Initially he thought he was getting the, "GI flu." He developed abdominal cramping, vomiting and fatigue. Over last 2 days abdominal cramping resolved and he thought he was getting better. Today he woke up and started to have his coffee and all of a sudden felt really weak and tired. All of a sudden he kept getting worse. He got up to go to the bathroom and moved bowels. As he got up to then throw up he passed out and proceeded to vomit. He was laying on bathroom floor and he could not get up. His stool this morning was, "absolutely black and gel." His vomit was also black as well. He has never had anything like this before. He last had lab work in june 2023. His hemoglobin was 15. He does admit to taking ibuprofen 2-3x/day for a few months. He doesn't do this everyday, but he has been taking it more frequently. Over last few months he hasn't had any food intolerances or post prandial pain. He does have an allergy to pantoprazole per records. He states he had a medication he had to drink once and it made him vomit, but he denies any medication every causing swelling of lip/tongue/throat. He is pretty certain it was not pantoprazole he was allergic too. He denies any recent f/c/s, chest pain, sob, n/v/d/, abd pain, dysuria, increased urg/freq. He denies any tobacco or alcohol use. He denies hx of hemorrhoids. Last hospitalized in 2019 for iron deficiency anemia requiring blood transfusion and IV venofer transfusion. He had EGD/C scope that showed esophagitis but was otherwise negative. Admission Exam Per Admitting Provider General: Pleasant gentleman, no distress, dried blood on toes/face CV:regular, no murmur appreciated Resp: CTABL GI: soft NTND, BS+ MSK: moving all extremities equally Principal Dx & Hospital Course #1 = Principal Diagnosis (1) Symptomatic anemia: (2) Hematemesis: (3) GIB (gastrointestinal bleeding): (4) HTN (hypertension): Plan Mr. Brasher is a 63-year-old male who has a significant past medical history of HTN, prediabetes, diastolic dysfunction, history of esophagitis, iron deficiency anemia, depression with anxiety and history of osteomyelitis who presents to ED secondary to syncope, bloody vomit and diarrhea x 1 day. Patient admitted on 08/23 for acute blood loss anemia 2/2 UGIB. Patient underwent EGD on 08/23 which revealed large ulcer now s/p hemostasis and hemostatic clip closure. After procedure, anemia study revealed low ferritin/iron--now s/p iron sucrose infusion. #Syncope - likely 2/2 to hypovolemia in setting of GIB and hypotension *resolved #Acute blood loss anemia 2/2 Upper GIB *improved #Acute gastric ulcer s/p hemostasis #Iron deficiency Continue to monitor in PCU hgb in 06/2023 15 per outpt chart review iron studies at that time revealed iron 78, ferritin 92, TIBC 349 and TSAT 22 Does admit to NSAID use Per outpatient record documented allergy to pantoprazole; however, after further discussion with patient he states that he was "allergic" to Sucralfate which caused him to vomit GI consulted -s/p EGD with 20mm ulcer -discharged on 40mg Protonix POBID x 90days -Avoid nsaids and iron pill -B12 stable 407, iron panel with iron 33/ferritin 43.2, folate stable 19.38 #HTN bp on lower side, likely 2/2 hypovolemia Resume home regimen upon discharge (losartan first, then amlodipine) #Iron Deficiency anemia on vitron C as outpt Iron sucrose 08/25 #Depression w anxiety mood stable continue escitalopram On day of discharge, patient notes feeling much improved overall. He ambulated without difficulty and tolerated diet. Discharge Exam Constitutional WD/WN, vitals as above Respiratory normal respiratory effort, lungs clear to auscultation Gastrointestinal (Abdomen) normal bowel sounds, soft, nontender, no hepatosplenomegaly Musculoskeletal no cyanosis or clubbing, extremities motor strength 5/5 Updated Medication List Medication Instructions Recorded Confirmed Type amlodipine 5 mg tablet 5 mg PO DAILY 08/23/23 08/23/23 History escitalopram oxalate 20 mg tablet 20 mg PO DAILY 08/23/23 08/23/23 History losartan 100 mg tablet 100 mg PO DAILY 08/23/23 08/23/23 History pantoprazole 40 mg tablet,delayed 40 mg PO BID 90 days #180 tabs 08/26/23 Rx release Hospital Stay Data Consultations 08/23/23 14:01 Consult Gastroenterology Routine Procedures Performed Operation Date: 08/24/23 16:30 Actual Procedures p EGD Hemostasis - Damion Suarez MD Diagnostic Imagining Performed 08/23/23 12:32 CT abd pelvis IV con only Stat Pending Results Patient Have Any Pending Studies at Discharge: No Discharge Instructions Given to Patient (Per Discharging Provider) You were admitted for concerns of bleeding and found a 20mm gastric ulcer in your stomach. This was addressed during a scope. After closure of the ulcer, your blood counts went back up slightly. It was also noted that you are very iron deficient. You received an iron transfusion while in the hospital. You should coordinate an outpatient PCP appointment to discuss further iron therapy (IV infusion) as it would be best to hold your iron supplement given this ulcer. Please resume your home losartan on 08/27. Please resume your home amlodipine on 08/28. Discontinue Iron. Discuss options at PCP. Please continue pantoprazole 40mg twice daily (Protonix) for 90 days. Please keep follow up with GI Total Time Total Time Spent Total Time Spent (In Minutes): 45
== END 2023-08-26 14:51 | disposition home or self-care (01) | DRG 378 ==
LOC: ED 12:21 → 2S 14:01